=== PATIENT | female | born 1935 | race Caucasian/White ===

== ENCOUNTER → 2017-01-09 | Outpatient (REF) | payer MEDICARE, OTHER ==
[~2017-01-09] MED LIST: BUME0.5T PO; COUM1TAB14 PO; DRIS50002 PO; FURO20TA2 PO; LASI40TA PO; POTA20TA PO; TRAM50TA2 PO; XYZA5TAB2 PO
[2017-01-09 10:25] LABS: INR 2.47
== END ==
LOC: M LAB REF 09:31
PROVIDERS: ATTEND Family Medicine
DX: Z51.81 Encounter for therapeutic drug level monitoring (principal); Z79.01 Long term (current) use of anticoagulants

== ENCOUNTER → 2017-01-30 | Outpatient (REF) | payer MEDICARE, OTHER ==
[2017-01-30 13:46] LABS: INR 2.3
== END ==
LOC: M LAB REF 13:00
PROVIDERS: ATTEND Nurse Practitioner Family
DX: Z51.81 Encounter for therapeutic drug level monitoring (principal); Z79.01 Long term (current) use of anticoagulants; I10 Essential (primary) hypertension; R06.02 Shortness of breath; Z95.0 Presence of cardiac pacemaker

== ENCOUNTER → 2017-03-14 | Outpatient (RCR) | payer MEDICARE, OTHER | LOC: M PT 02-14 14:23 | PROVIDERS: ATTEND Surgery | DX: Z51.89 Encounter for other specified aftercare (principal); I89.0 Lymphedema, not elsewhere classified | CPT/HCPCS: 97110; 97140; 97162; G0283; G8978; G8979 ==

== ENCOUNTER 2017-03-20 13:49 | Outpatient (RCR) | payer MEDICARE, OTHER | END 2017-04-13 | LOC: M PT 13:49 | PROVIDERS: ATTEND Surgery | DX: Z51.89 Encounter for other specified aftercare (principal); I89.0 Lymphedema, not elsewhere classified ==

== ENCOUNTER 2017-09-20 13:30 | Outpatient (RCR) | payer MEDICARE, OTHER | END 2017-10-14 | LOC: M PT 13:30 | DX: Z51.89 Encounter for other specified aftercare (principal); I89.0 Lymphedema, not elsewhere classified | CPT/HCPCS: 97163 ==

== ENCOUNTER 2017-10-24 13:45 | Outpatient (RCR) | payer MEDICARE, OTHER | END 2017-11-14 | LOC: M PT 13:45 | DX: Z51.89 Encounter for other specified aftercare (principal); I89.0 Lymphedema, not elsewhere classified | CPT/HCPCS: 93005 ==

== ENCOUNTER → 2017-10-24 | Outpatient (CLI) | payer MEDICARE ==
[2017-10-24 16:20] LABS: INR 1.74; PROTHROMBIN TIME 20.9 SECONDS (12.4-14.5)
== END ==
LOC: M LAB 15:20
DX: I48.2 Chronic atrial fibrillation (principal); Z79.01 Long term (current) use of anticoagulants
CPT/HCPCS: 85610

== ENCOUNTER 2017-11-01 10:24 | Inpatient (IN) | payer MEDICARE, OTHER ==
[2017-11-01] MEDS: OMEPRAZOLE 20 MG CAP PO (09:00)
[2017-11-01 11:14] LABS: BASO # 0.1 10^3/uL (0.0-0.2); BASO % 1.2 % (0.0-1.0); EOS # 0.2 10^3/uL (0.0-0.50); EOS % 1.9 % (0.0-3.0); HEMATOCRIT 42.8 % (36.0-47.0); HEMOGLOBIN 13.5 g/dl (12.0-16.0); IMMATURE GRANULOCYTE % 0.4 % (0-0); LYMPH # 1.3 10^3/uL (1.5-4.5); LYMPH % 16.1 % (24.0-44.0); MEAN CORPUSCULAR HEMOGLOBIN 28.7 pg (27.0-33.0); MEAN CORPUSCULAR HGB CONC 31.5 g/dl (32.0-36.5); MEAN CORPUSCULAR VOLUME 90.9 fl (80.0-96.0); MONO # 0.5 10^3/uL (0.0-0.8); MONO % 6.5 % (0.0-5.0); NEUTROPHILS # 6.1 10^3/uL (1.8-7.7); NEUTROPHILS % 73.9 % (36.0-66.0); PLATELET COUNT, AUTOMATED 207 10^3/uL (150-450); RED BLOOD COUNT 4.71 10^6/uL (4.00-5.40); WHITE BLOOD COUNT 8.3 10^3/uL (4.0-10.0)
[2017-11-01 11:25] LABS: INR 1.24; PARTIAL THROMBOPLASTIN TIME 31.5 SECONDS (26.8-37.9); PROTHROMBIN TIME 15.8 SECONDS (12.4-14.5)
[2017-11-01 11:48] LABS: ALBUMIN 3.4 GM/DL (3.2-5.2); ALBUMIN/GLOBULIN RATIO 0.72 (1.00-1.93); ALKALINE PHOSPHATASE 92 U/L (45-117); ALT/SGPT 15 U/L (12-78); ANION GAP 6 MEQ/L (8-16); AST/SGOT 19 U/L (7-37); BILIRUBIN,DIRECT 0.4 MG/DL (0.0-0.2); BLOOD UREA NITROGEN 22 MG/DL (7-18); CARBON DIOXIDE LEVEL 27 MEQ/L (21-32); CHLORIDE LEVEL 109 MEQ/L (98-107); CPK CREATINE PHOSPHOKINASE 36 U/L (26-192); CREATININE FOR GFR 1.14 MG/DL (0.55-1.02); FREE T4 1.57 NG/DL (0.76-1.46); GLOMERULAR FILTRATION RATE 48.6 (>32); GLUCOSE, FASTING 120 MG/DL (83-110); POTASSIUM SERUM 4.4 MEQ/L (3.5-5.1); SODIUM LEVEL 142 MEQ/L (136-145); TOTAL PROTEIN 8.1 GM/DL (6.4-8.2); TROPONIN I < 0.02 NG/ML (< 0.10)
[2017-11-01 11:54] LABS: CK-MB VALUE MASS 1.6 NG/ML (0.0-3.6); MB/CK RELATIVE INDEX 4.44 (< OR =4)
[2017-11-01 13:41] LABS: BEDSIDE GLUCOSE 105 MG/DL (83-110)
[2017-11-01] MEDS: ENOXAPARIN 100MG/1ML SYRINGE (J1650) SC ×2 (14:30→18:17)
[2017-11-01] MEDS ORDERED: DEXTROSE 50% 50 ML SYRINGE IV (14:45)
[2017-11-01] MEDS ORDERED: GLUCAGON FOR INJ 1 MG VIAL (J1610) SC (14:45)
[2017-11-01] MEDS ORDERED: GLUCOSE 4 GM CHEW TABLET PO (14:45)
[2017-11-01] MEDS: IPRATROPIUM 0.5MG/ALBUTEROL 2.5MG INH SOL UD 3ML (DUONEB)(J7620) NEB (14:48)
[2017-11-01] MEDS: ALBUTEROL SULFATE 2.5 MG/0.5 ML INH NEB SOLN INH ×2 (14:48→22:29)
[2017-11-01 15:32] LABS: MAGNESIUM LEVEL 2.1 MG/DL (1.8-2.4)
[2017-11-01] MEDS ORDERED: ISOVUE-370 76% 100ML VIAL (Q9967) As Ordered (17:41)
[2017-11-01 18:13] LABS: BEDSIDE GLUCOSE 106 MG/DL (83-110)
[2017-11-01] MEDS: WARFARIN SOD 5 MG TAB PO (18:18)
[2017-11-01] MEDS: TORSEMIDE 20 MG TAB PO (18:18)
[2017-11-01] MEDS: HumaLOG INSULIN (NovoLOG) PER UNIT SC ×2 (18:19→21:00)
[2017-11-01 20:26] LABS: APPEARANCE, URINE CLEAR (CLEAR); BACTERIA, URINE AUTO 1+ (NEGATIVE); BILIRUBIN, URINE AUTO NEGATIVE (NEGATIVE); BLOOD, URINE BLOOD NEGATIVE (NEGATIVE); COLOR, URINE STRAW (YELLOW); GLUCOSE, URINE (UA) AUTO NEGATIVE (NEGATIVE); KETONE, URINE AUTO NEGATIVE (NEGATIVE); LEUKOCYTE ESTERASE, URINE AUTO TRACE (NEGATIVE); NITRITE, URINE AUTO NEGATIVE (NEGATIVE); PROTEIN, URINE AUTO NEGATIVE (NEGATIVE); RBC, URINE AUTO 1 /HPF (0-3); SPECIFIC GRAVITY URINE AUTO 1.004 (1.002-1.035); SQUAMOUS EPITHELIAL CELL UR AU 0 /HPF (0-6); UROBILINOGEN, URINE AUTO 0.2 mg/dL (0.0-2.0); WBC, URINE AUTO 9 /HPF (0-3)
[2017-11-01 20:27] LABS: BEDSIDE GLUCOSE 95 MG/DL (83-110)
[2017-11-01] MEDS: LEVEMIR (INSULIN DETEMIR) 1 UNITS/0.01ML SC (20:46)
[2017-11-01] MEDS: SENOKOT S TAB PO (20:46)
[2017-11-01] MEDS: CAPTOpril 12.5 MG TAB PO (21:01)
[2017-11-02] MEDS: ALBUTEROL SULFATE 2.5 MG/0.5 ML INH NEB SOLN INH (04:27)
[2017-11-02] MEDS: ENOXAPARIN 100MG/1ML SYRINGE (J1650) SC ×2 (05:55→16:52)
[2017-11-02] MEDS: LEVOTHYROXINE 25MCG TABLET (0.025MG) PO (05:55)
[2017-11-02 06:15] LABS: INR 1.42; PROTHROMBIN TIME 17.7 SECONDS (12.4-14.5)
[2017-11-02 06:19] LABS: ALBUMIN 2.7 GM/DL (3.2-5.2); ANION GAP 9 MEQ/L (8-16); BLOOD UREA NITROGEN 21 MG/DL (7-18); CALCIUM LEVEL 8.5 MG/DL (8.8-10.2); CARBON DIOXIDE LEVEL 26 MEQ/L (21-32); CHLORIDE LEVEL 108 MEQ/L (98-107); CREATININE FOR GFR 1.11 MG/DL (0.55-1.02); GLOMERULAR FILTRATION RATE 50.1 (>32); GLUCOSE, FASTING 111 MG/DL (83-110); PHOSPHORUS LEVEL 4.1 MG/DL (2.5-4.9); SODIUM LEVEL 143 MEQ/L (136-145); TROPONIN I 0.03 NG/ML (< 0.10)
[2017-11-02] MEDS: OMEPRAZOLE 20 MG CAP PO (08:46)
[2017-11-02] MEDS: LEVEMIR (INSULIN DETEMIR) 1 UNITS/0.01ML SC ×2 (08:46→21:52)
[2017-11-02] MEDS: SENOKOT S TAB PO ×2 (08:46→21:52)
[2017-11-02] MEDS: CAPTOpril 12.5 MG TAB PO ×2 (08:46→21:52)
[2017-11-02] MEDS: TORSEMIDE 20 MG TAB PO ×2 (08:46→16:52)
[2017-11-02] MEDS: HumaLOG INSULIN (NovoLOG) PER UNIT SC ×4 (08:47→21:00)
[2017-11-02 12:14] LABS: BEDSIDE GLUCOSE 161 MG/DL (83-110)
[2017-11-02 16:50] LABS: BEDSIDE GLUCOSE 130 MG/DL (83-110)
[2017-11-02] MEDS: SPIRONOLACTONE 25 MG TAB PO (16:52)
[2017-11-02] MEDS: WARFARIN SOD 3 MG TAB PO (16:52)
[2017-11-02 22:01] LABS: BEDSIDE GLUCOSE 111 MG/DL (83-110)
[2017-11-03] MEDS: ENOXAPARIN 100MG/1ML SYRINGE (J1650) SC (05:41)
[2017-11-03] MEDS: LEVOTHYROXINE 25MCG TABLET (0.025MG) PO (05:41)
[2017-11-03 06:35] LABS: INR 1.78; PROTHROMBIN TIME 21.3 SECONDS (12.4-14.5)
[2017-11-03 06:38] LABS: ALBUMIN 2.6 GM/DL (3.2-5.2); ANION GAP 8 MEQ/L (8-16); BLOOD UREA NITROGEN 20 MG/DL (7-18); CALCIUM LEVEL 8.2 MG/DL (8.8-10.2); CARBON DIOXIDE LEVEL 32 MEQ/L (21-32); CHLORIDE LEVEL 104 MEQ/L (98-107); CREATININE FOR GFR 1.19 MG/DL (0.55-1.02); GLOMERULAR FILTRATION RATE 46.2 (>32); GLUCOSE, FASTING 101 MG/DL (83-110); PHOSPHORUS LEVEL 3.4 MG/DL (2.5-4.9); POTASSIUM SERUM 3.2 MEQ/L (3.5-5.1); SODIUM LEVEL 144 MEQ/L (136-145)
[2017-11-03] MEDS: HumaLOG INSULIN (NovoLOG) PER UNIT SC ×4 (07:30→20:25)
[2017-11-03] MEDS: TORSEMIDE 20 MG TAB PO (07:52)
[2017-11-03] MEDS: LEVEMIR (INSULIN DETEMIR) 1 UNITS/0.01ML SC ×2 (07:53→20:27)
[2017-11-03] MEDS: OMEPRAZOLE 20 MG CAP PO (07:53)
[2017-11-03] MEDS: SPIRONOLACTONE 25 MG TAB PO (07:53)
[2017-11-03] MEDS: CAPTOpril 12.5 MG TAB PO (07:53)
[2017-11-03] MEDS: SENOKOT S TAB PO ×2 (07:53→20:24)
[2017-11-03] MEDS: NYSTATIN 100,000 UNITS/GM TOPICAL PWD 15 GM TOP ×2 (09:00→20:24)
[2017-11-03 12:22] LABS: BEDSIDE GLUCOSE 133 MG/DL (83-110)
[2017-11-03] MEDS: POTASSIUM CHLORIDE 10 MEQ SR TABLET PO ×2 (14:19→20:23)
[2017-11-03 17:17] LABS: BEDSIDE GLUCOSE 119 MG/DL (83-110)
[2017-11-03] MEDS: WARFARIN SOD 5 MG TAB PO (17:25)
[2017-11-03] MEDS: ACETAMINOPHEN TAB 650MG DOSE (2X325MG) PO (17:25)
[2017-11-03 20:01] LABS: BEDSIDE GLUCOSE 122 MG/DL (83-110)
[2017-11-04] MEDS: ALBUTEROL SULFATE 2.5 MG/0.5 ML INH NEB SOLN INH (04:35)
[2017-11-04 04:54] LABS: INR 1.89; PROTHROMBIN TIME 22.3 SECONDS (12.4-14.5)
[2017-11-04 04:59] LABS: ALBUMIN 2.6 GM/DL (3.2-5.2); ANION GAP 7 MEQ/L (8-16); BLOOD UREA NITROGEN 22 MG/DL (7-18); CALCIUM LEVEL 8.1 MG/DL (8.8-10.2); CARBON DIOXIDE LEVEL 33 MEQ/L (21-32); CHLORIDE LEVEL 103 MEQ/L (98-107); CREATININE FOR GFR 1.15 MG/DL (0.55-1.02); GLOMERULAR FILTRATION RATE 48.1 (>32); GLUCOSE, FASTING 103 MG/DL (83-110); PHOSPHORUS LEVEL 3.3 MG/DL (2.5-4.9); POTASSIUM SERUM 3.6 MEQ/L (3.5-5.1); SODIUM LEVEL 143 MEQ/L (136-145)
[2017-11-04] MEDS: LEVOTHYROXINE 25MCG TABLET (0.025MG) PO (06:11)
[2017-11-04] MEDS: HumaLOG INSULIN (NovoLOG) PER UNIT SC ×4 (07:30→20:59)
[2017-11-04] MEDS: POTASSIUM CHLORIDE 10 MEQ SR TABLET PO ×2 (08:14→20:59)
[2017-11-04] MEDS: OMEPRAZOLE 20 MG CAP PO (08:14)
[2017-11-04] MEDS: SPIRONOLACTONE 25 MG TAB PO (08:14)
[2017-11-04] MEDS: SENOKOT S TAB PO ×2 (08:14→20:59)
[2017-11-04] MEDS: LEVEMIR (INSULIN DETEMIR) 1 UNITS/0.01ML SC ×2 (08:15→20:58)
[2017-11-04] MEDS: NYSTATIN 100,000 UNITS/GM TOPICAL PWD 15 GM TOP ×2 (08:15→20:59)
[2017-11-04] MEDS ORDERED: TORSEMIDE 20 MG TAB PO (09:00)
[2017-11-04 12:31] LABS: BEDSIDE GLUCOSE 150 MG/DL (83-110)
[2017-11-04] MEDS: TORSEMIDE 20 MG TAB PO (12:50)
[2017-11-04 16:42] LABS: BEDSIDE GLUCOSE 153 MG/DL (83-110)
[2017-11-04] MEDS: WARFARIN SOD 5 MG TAB PO (18:31)
[2017-11-04 21:15] LABS: BEDSIDE GLUCOSE 128 MG/DL (83-110)
[2017-11-05] MEDS: ALBUTEROL SULFATE 2.5 MG/0.5 ML INH NEB SOLN INH ×2 (03:45→21:01)
[2017-11-05 05:54] LABS: ALBUMIN 2.6 GM/DL (3.2-5.2); ANION GAP 7 MEQ/L (8-16); BLOOD UREA NITROGEN 22 MG/DL (7-18); CARBON DIOXIDE LEVEL 30 MEQ/L (21-32); CHLORIDE LEVEL 104 MEQ/L (98-107); CREATININE FOR GFR 1.26 MG/DL (0.55-1.02); GLOMERULAR FILTRATION RATE 43.3 (>32); GLUCOSE, FASTING 121 MG/DL (83-110); INR 2.32; PHOSPHORUS LEVEL 3.4 MG/DL (2.5-4.9); POTASSIUM SERUM 4.3 MEQ/L (3.5-5.1); PROTHROMBIN TIME 26.4 SECONDS (12.4-14.5); SODIUM LEVEL 141 MEQ/L (136-145)
[2017-11-05] MEDS: LEVOTHYROXINE 25MCG TABLET (0.025MG) PO (06:07)
[2017-11-05] MEDS: HumaLOG INSULIN (NovoLOG) PER UNIT SC ×4 (09:22→21:00)
[2017-11-05] MEDS: SENOKOT S TAB PO ×2 (09:22→21:00)
[2017-11-05] MEDS: LEVEMIR (INSULIN DETEMIR) 1 UNITS/0.01ML SC ×2 (09:22→22:15)
[2017-11-05] MEDS: TORSEMIDE 20 MG TAB PO (09:23)
[2017-11-05] MEDS: OMEPRAZOLE 20 MG CAP PO (09:23)
[2017-11-05] MEDS: SPIRONOLACTONE 25 MG TAB PO (09:23)
[2017-11-05] MEDS: POTASSIUM CHLORIDE 10 MEQ SR TABLET PO (09:23)
[2017-11-05] MEDS: NYSTATIN 100,000 UNITS/GM TOPICAL PWD 15 GM TOP ×2 (09:24→21:00)
[2017-11-05 12:13] LABS: BEDSIDE GLUCOSE 127 MG/DL (83-110)
[2017-11-05] MEDS: WARFARIN SOD 5 MG TAB PO (16:44)
[2017-11-05 17:20] LABS: BEDSIDE GLUCOSE 177 MG/DL (83-110)
[2017-11-05 22:14] LABS: BEDSIDE GLUCOSE 114 MG/DL (83-110)
[2017-11-05] MEDS: ACETAMINOPHEN TAB 650MG DOSE (2X325MG) PO (22:16)
[2017-11-06 06:05] LABS: PROTHROMBIN TIME 27.1 SECONDS (12.4-14.5)
[2017-11-06] MEDS: LEVOTHYROXINE 25MCG TABLET (0.025MG) PO (06:14)
[2017-11-06 06:20] LABS: ALBUMIN 2.5 GM/DL (3.2-5.2); ANION GAP 9 MEQ/L (8-16); BLOOD UREA NITROGEN 23 MG/DL (7-18); CALCIUM LEVEL 8.4 MG/DL (8.8-10.2); CARBON DIOXIDE LEVEL 30 MEQ/L (21-32); CHLORIDE LEVEL 102 MEQ/L (98-107); CREATININE FOR GFR 1.12 MG/DL (0.55-1.02); GLOMERULAR FILTRATION RATE 49.6 (>32); GLUCOSE, FASTING 102 MG/DL (70-100); PHOSPHORUS LEVEL 3.8 MG/DL (2.5-4.9); SODIUM LEVEL 141 MEQ/L (136-145)
[2017-11-06] MEDS: HumaLOG INSULIN (NovoLOG) PER UNIT SC ×4 (08:46→20:30)
[2017-11-06] MEDS: LEVEMIR (INSULIN DETEMIR) 1 UNITS/0.01ML SC ×2 (08:46→20:24)
[2017-11-06] MEDS: SPIRONOLACTONE 25 MG TAB PO (08:47)
[2017-11-06] MEDS: SENOKOT S TAB PO ×2 (08:47→20:24)
[2017-11-06] MEDS: TORSEMIDE 20 MG TAB PO (08:47)
[2017-11-06] MEDS: OMEPRAZOLE 20 MG CAP PO (08:47)
[2017-11-06] MEDS: NYSTATIN 100,000 UNITS/GM TOPICAL PWD 15 GM TOP ×2 (08:48→20:25)
[2017-11-06 13:23] LABS: BEDSIDE GLUCOSE 134 MG/DL (83-110)
[2017-11-06 17:03] LABS: BEDSIDE GLUCOSE 166 MG/DL (83-110)
[2017-11-06] MEDS: WARFARIN SOD 5 MG TAB PO (17:39)
[2017-11-06 20:47] LABS: BEDSIDE GLUCOSE 113 MG/DL (83-110)
[2017-11-07] MEDS: LEVOTHYROXINE 25MCG TABLET (0.025MG) PO (05:09)
[2017-11-07 05:46] LABS: INR 2.65; PROTHROMBIN TIME 29.4 SECONDS (12.4-14.5)
[2017-11-07 06:00] LABS: ALBUMIN 2.5 GM/DL (3.2-5.2); ANION GAP 7 MEQ/L (8-16); BLOOD UREA NITROGEN 24 MG/DL (7-18); CALCIUM LEVEL 8.2 MG/DL (8.8-10.2); CARBON DIOXIDE LEVEL 32 MEQ/L (21-32); CHLORIDE LEVEL 102 MEQ/L (98-107); CREATININE FOR GFR 1.18 MG/DL (0.55-1.02); GLOMERULAR FILTRATION RATE 46.7 (>32); GLUCOSE, FASTING 126 MG/DL (70-100); PHOSPHORUS LEVEL 3.8 MG/DL (2.5-4.9); SODIUM LEVEL 141 MEQ/L (136-145)
[2017-11-07] MEDS: ACETAMINOPHEN TAB 650MG DOSE (2X325MG) PO ×2 (07:44→17:10)
[2017-11-07] MEDS: SENOKOT S TAB PO ×2 (09:27→20:48)
[2017-11-07] MEDS: SPIRONOLACTONE 25 MG TAB PO (09:27)
[2017-11-07] MEDS: TORSEMIDE 20 MG TAB PO (09:27)
[2017-11-07] MEDS: LEVEMIR (INSULIN DETEMIR) 1 UNITS/0.01ML SC ×2 (09:28→20:48)
[2017-11-07] MEDS: OMEPRAZOLE 20 MG CAP PO (09:28)
[2017-11-07] MEDS: HumaLOG INSULIN (NovoLOG) PER UNIT SC ×4 (09:29→20:43)
[2017-11-07] MEDS: NYSTATIN 100,000 UNITS/GM TOPICAL PWD 15 GM TOP ×2 (09:30→20:48)
[2017-11-07 12:01] LABS: BEDSIDE GLUCOSE 158 MG/DL (83-110)
[2017-11-07] MEDS: EUCERIN 120GM CREAM TOP ×2 (12:30→20:48)
[2017-11-07] MEDS: WARFARIN SOD 5 MG TAB PO (17:09)
[2017-11-07 17:19] LABS: BEDSIDE GLUCOSE 131 MG/DL (83-110)
[2017-11-07 22:05] LABS: BEDSIDE GLUCOSE 142 MG/DL (83-110)
[2017-11-08] MEDS: ACETAMINOPHEN TAB 650MG DOSE (2X325MG) PO ×2 (01:56→08:02)
[2017-11-08] MEDS: LEVOTHYROXINE 25MCG TABLET (0.025MG) PO (05:02)
[2017-11-08 06:27] LABS: INR 2.64; PROTHROMBIN TIME 29.3 SECONDS (12.4-14.5)
[2017-11-08 06:41] LABS: ALBUMIN 2.6 GM/DL (3.2-5.2); ANION GAP 7 MEQ/L (8-16); BLOOD UREA NITROGEN 29 MG/DL (7-18); CALCIUM LEVEL 7.9 MG/DL (8.8-10.2); CARBON DIOXIDE LEVEL 30 MEQ/L (21-32); CHLORIDE LEVEL 105 MEQ/L (98-107); CREATININE FOR GFR 1.15 MG/DL (0.55-1.02); GLOMERULAR FILTRATION RATE 48.1 (>32); GLUCOSE, FASTING 108 MG/DL (70-100); PHOSPHORUS LEVEL 3.2 MG/DL (2.5-4.9); POTASSIUM SERUM 3.9 MEQ/L (3.5-5.1); SODIUM LEVEL 142 MEQ/L (136-145)
[2017-11-08] MEDS: OMEPRAZOLE 20 MG CAP PO (08:00)
[2017-11-08] MEDS: SPIRONOLACTONE 25 MG TAB PO (08:00)
[2017-11-08] MEDS: TORSEMIDE 20 MG TAB PO (08:01)
[2017-11-08] MEDS: SENOKOT S TAB PO ×2 (08:01→21:00)
[2017-11-08] MEDS: NYSTATIN 100,000 UNITS/GM TOPICAL PWD 15 GM TOP ×2 (08:01→21:01)
[2017-11-08] MEDS: EUCERIN 120GM CREAM TOP ×2 (08:01→21:01)
[2017-11-08] MEDS: LEVEMIR (INSULIN DETEMIR) 1 UNITS/0.01ML SC ×2 (08:02→21:00)
[2017-11-08] MEDS: HumaLOG INSULIN (NovoLOG) PER UNIT SC ×4 (08:02→21:01)
[2017-11-08 12:28] LABS: BEDSIDE GLUCOSE 159 MG/DL (83-110)
[2017-11-08] MEDS: WARFARIN SOD 5 MG TAB PO (17:52)
[2017-11-08 21:00] LABS: BEDSIDE GLUCOSE 172 MG/DL (83-110)
[2017-11-09] MEDS: ACETAMINOPHEN TAB 650MG DOSE (2X325MG) PO (00:25)
[2017-11-09] MEDS: LEVOTHYROXINE 25MCG TABLET (0.025MG) PO (05:35)
[2017-11-09 06:51] LABS: BEDSIDE GLUCOSE 101 MG/DL (83-110)
[2017-11-09] MEDS: HumaLOG INSULIN (NovoLOG) PER UNIT SC (07:28)
[2017-11-09] MEDS: SENOKOT S TAB PO ×2 (09:00→09:07)
[2017-11-09] MEDS: OMEPRAZOLE 20 MG CAP PO (09:08)
[2017-11-09] MEDS: TORSEMIDE 20 MG TAB PO (09:08)
[2017-11-09] MEDS: LEVEMIR (INSULIN DETEMIR) 1 UNITS/0.01ML SC (09:08)
[2017-11-09] MEDS: SPIRONOLACTONE 25 MG TAB PO (09:08)
[2017-11-09] MEDS: NYSTATIN 100,000 UNITS/GM TOPICAL PWD 15 GM TOP (09:08)
[2017-11-09] MEDS: EUCERIN 120GM CREAM TOP (09:09)
[2017-11-09 12:01] LABS: BEDSIDE GLUCOSE 175 MG/DL (83-110)
[2017-11-09 15:12] LABS: BEDSIDE GLUCOSE 112 MG/DL (83-110)
== END 2017-11-09 12:44 | DRG 314 ==
LOC: M ED 10:24 → M PCU 18:48
PROVIDERS: Internal Medicine Cardiovascular Disease
DX: T82.198A Other mechanical complication of other cardiac electronic device, initial encounter (principal); I46.8 Cardiac arrest due to other underlying condition; I50.33 Acute on chronic diastolic (congestive) heart failure; I44.2 Atrioventricular block, complete; Z68.41 Body mass index [BMI] 40.0-44.9, adult; E66.01 Morbid (severe) obesity due to excess calories; G47.33 Obstructive sleep apnea (adult) (pediatric); I11.0 Hypertensive heart disease with heart failure; I27.81 Cor pulmonale (chronic); Z95.2 Presence of prosthetic heart valve; I48.2 Chronic atrial fibrillation; I27.20 Pulmonary hypertension, unspecified; I35.0 Nonrheumatic aortic (valve) stenosis; Z91.19 Patient's noncompliance with other medical treatment and regimen; E11.40 Type 2 diabetes mellitus with diabetic neuropathy, unspecified; Z79.4 Long term (current) use of insulin; E78.00 Pure hypercholesterolemia, unspecified; I73.9 Peripheral vascular disease, unspecified; K44.9 Diaphragmatic hernia without obstruction or gangrene; K21.9 Gastro-esophageal reflux disease without esophagitis; Z86.711 Personal history of pulmonary embolism; Z86.718 Personal history of other venous thrombosis and embolism; M19.90 Unspecified osteoarthritis, unspecified site; E03.9 Hypothyroidism, unspecified; Z79.01 Long term (current) use of anticoagulants; Z88.0 Allergy status to penicillin; Z88.2 Allergy status to sulfonamides; Z88.8 Allergy status to other drugs, medicaments and biological substances; Z91.11 Patient's noncompliance with dietary regimen; Y83.1 Surgical operation with implant of artificial internal device as the cause of abnormal reaction of the patient, or of later complication, without mention of misadventure at the time of the procedure

== ENCOUNTER → 2017-11-13 | Outpatient (REF) | payer MEDICARE ==
[2017-11-13 12:22] LABS: HEMATOCRIT 41.3 % (36.0-47.0); HEMOGLOBIN 13.1 g/dl (12.0-16.0); MEAN CORPUSCULAR HEMOGLOBIN 27.9 pg (27.0-33.0); MEAN CORPUSCULAR HGB CONC 31.7 g/dl (32.0-36.5); MEAN CORPUSCULAR VOLUME 87.9 fl (80.0-96.0); PLATELET COUNT, AUTOMATED 192 10^3/uL (150-450); RED CELL DISTRIBUTION WIDTH 15.1 % (11.5-14.5); WHITE BLOOD COUNT 5.8 10^3/uL (4.0-10.0)
[2017-11-13 13:05] LABS: ESTIMATED AVERAGE GLUCOSE 140 MG/DL (60-110); HEMOGLOBIN A1c 6.5 %
[2017-11-13 13:19] LABS: ALBUMIN 2.9 GM/DL (3.2-5.2); ALBUMIN/GLOBULIN RATIO 0.71 (1.00-1.93); ALKALINE PHOSPHATASE 96 U/L (45-117); ALT/SGPT 19 U/L (12-78); ANION GAP 8 MEQ/L (8-16); AST/SGOT 29 U/L (7-37); BILIRUBIN,TOTAL 0.6 MG/DL (0.2-1.0); BLOOD UREA NITROGEN 29 MG/DL (7-18); CALCIUM LEVEL 8.1 MG/DL (8.8-10.2); CARBON DIOXIDE LEVEL 31 MEQ/L (21-32); CHLORIDE LEVEL 101 MEQ/L (98-107); CREATININE FOR GFR 1.31 MG/DL (0.55-1.30); GLOMERULAR FILTRATION RATE 41.4 (>32); GLUCOSE, FASTING 171 MG/DL (70-100); POTASSIUM SERUM 3.7 MEQ/L (3.5-5.1); SODIUM LEVEL 140 MEQ/L (136-145)
== END ==
DX: I50.9 Heart failure, unspecified (principal); Z79.899 Other long term (current) drug therapy
CPT/HCPCS: 80053

== ENCOUNTER → 2017-11-20 | Outpatient (REF) ==
[2017-11-20 11:03] LABS: HEMATOCRIT 40.5 % (36.0-47.0); MEAN CORPUSCULAR HGB CONC 32.1 g/dl (32.0-36.5); MEAN CORPUSCULAR VOLUME 87.3 fl (80.0-96.0); PLATELET COUNT, AUTOMATED 191 10^3/uL (150-450); RED BLOOD COUNT 4.64 10^6/uL (4.00-5.40); RED CELL DISTRIBUTION WIDTH 15.3 % (11.5-14.5); WHITE BLOOD COUNT 7.5 10^3/uL (4.0-10.0)
[2017-11-20 11:33] LABS: ALBUMIN/GLOBULIN RATIO 0.71 (1.00-1.93); ALKALINE PHOSPHATASE 102 U/L (45-117); ALT/SGPT 25 U/L (12-78); ANION GAP 12 MEQ/L (8-16); AST/SGOT 32 U/L (7-37); BILIRUBIN,TOTAL 0.8 MG/DL (0.2-1.0); BLOOD UREA NITROGEN 25 MG/DL (7-18); CALCIUM LEVEL 8.6 MG/DL (8.8-10.2); CARBON DIOXIDE LEVEL 26 MEQ/L (21-32); CHLORIDE LEVEL 103 MEQ/L (98-107); CREATININE FOR GFR 1.24 MG/DL (0.55-1.30); GLOMERULAR FILTRATION RATE 44.1 (>32); GLUCOSE, FASTING 125 MG/DL (70-100); NT-PRO BNP 1349 PG/ML (<450); POTASSIUM SERUM 3.8 MEQ/L (3.5-5.1); SODIUM LEVEL 141 MEQ/L (136-145); TOTAL PROTEIN 7.2 GM/DL (6.4-8.2)
== END ==
DX: I50.9 Heart failure, unspecified (principal)

== ENCOUNTER → 2017-11-27 | Outpatient (REF) ==
[2017-11-27 11:58] LABS: ANION GAP 8 MEQ/L (8-16); BLOOD UREA NITROGEN 29 MG/DL (7-18); CARBON DIOXIDE LEVEL 30 MEQ/L (21-32); CHLORIDE LEVEL 106 MEQ/L (98-107); CREATININE FOR GFR 1.34 MG/DL (0.55-1.30); GLOMERULAR FILTRATION RATE 40.3 (>32); GLUCOSE, FASTING 164 MG/DL (70-100); POTASSIUM SERUM 3.8 MEQ/L (3.5-5.1); SODIUM LEVEL 144 MEQ/L (136-145)
== END ==
DX: I50.9 Heart failure, unspecified (principal)

== ENCOUNTER 2018-02-09 22:17 | Emergency (ER) | payer MEDICARE ==
[2018-02-09] MEDS: NITROGLYCERIN 0.4 MG SUBL TABLET SL ×2 (22:50→23:38)
[2018-02-09 23:18] LABS: BASO % 0.3 % (0.0-1.0); EOS # 0.1 10^3/uL (0.0-0.50); EOS % 0.9 % (0.0-3.0); HEMATOCRIT 45.6 % (36.0-47.0); HEMOGLOBIN 14.4 g/dl (12.0-15.5); IMMATURE GRANULOCYTE % 0.5 % (0-3.0); LYMPH # 0.9 10^3/uL (1.5-4.5); LYMPH % 7.4 % (24.0-44.0); MEAN CORPUSCULAR HEMOGLOBIN 28.5 pg (27.0-33.0); MEAN CORPUSCULAR HGB CONC 31.6 g/dl (32.0-36.5); MEAN CORPUSCULAR VOLUME 90.3 fl (80.0-96.0); MONO # 0.5 10^3/uL (0.0-0.8); MONO % 4.3 % (0.0-5.0); NEUTROPHILS % 86.6 % (36.0-66.0); PLATELET COUNT, AUTOMATED 227 10^3/uL (150-450); RED BLOOD COUNT 5.05 10^6/uL (4.00-5.40); RED CELL DISTRIBUTION WIDTH 14.4 % (11.5-14.5); WHITE BLOOD COUNT 11.6 10^3/uL (4.0-10.0)
[2018-02-09] MEDS: ONDANSETRON 4MG/2ML VIAL (J2405) IV (23:30)
[2018-02-09] MEDS: ASPIRIN 81 MG CHEW TABLET PO (23:31)
[2018-02-09] MEDS: NS 1,000 ML IV (23:35)
[2018-02-10] MEDS: NITROGLYCERIN 0.4 MG SUBL TABLET SL
[2018-02-10 00:11] LABS: ALBUMIN 2.9 GM/DL (3.2-5.2); ALBUMIN/GLOBULIN RATIO 0.69 (1.00-1.93); ALKALINE PHOSPHATASE 97 U/L (45-117); ALT/SGPT 17 U/L (12-78); ANION GAP 6 MEQ/L (8-16); AST/SGOT 29 U/L (7-37); BILIRUBIN,DIRECT 0.2 MG/DL (0.0-0.2); BILIRUBIN,TOTAL 0.6 MG/DL (0.2-1.0); BLOOD UREA NITROGEN 19 MG/DL (7-18); CALCIUM LEVEL 8.1 MG/DL (8.8-10.2); CARBON DIOXIDE LEVEL 32 MEQ/L (21-32); CHLORIDE LEVEL 105 MEQ/L (98-107); CK-MB VALUE MASS 1.7 NG/ML (<3.6); CPK CREATINE PHOSPHOKINASE 57 U/L (26-192); GLOMERULAR FILTRATION RATE 56.4 (>32); GLUCOSE, FASTING 142 MG/DL (70-100); MB/CK RELATIVE INDEX 2.98 (< OR =4); SODIUM LEVEL 143 MEQ/L (136-145); TOTAL PROTEIN 7.1 GM/DL (6.4-8.2); TROPONIN I < 0.02 NG/ML (< 0.10)
[2018-02-10] MEDS: METOCLOPRAMIDE INJ 10MG/2ML VIAL (J2765) IV (00:52)
[2018-02-10 01:04] LABS: PROTHROMBIN TIME 23.3 SECONDS (12.4-14.5)
[2018-02-10 01:05] LABS: INR 1.99
[2018-02-10] MEDS: ACETAMINOPHEN TAB 650MG DOSE (2X325MG) PO (02:21)
[2018-02-10 05:38] LABS: CK-MB VALUE MASS 1.6 NG/ML (<3.6); CPK CREATINE PHOSPHOKINASE 59 U/L (26-192); MB/CK RELATIVE INDEX 2.71 (< OR =4); TROPONIN I < 0.02 NG/ML (< 0.10)
== END 2018-02-10 07:14 | disposition home or self-care (01) ==
LOC: M ED 02-10 07:14
DX: R07.9 Chest pain, unspecified (principal); E11.9 Type 2 diabetes mellitus without complications; I10 Essential (primary) hypertension; E78.5 Hyperlipidemia, unspecified; Z88.1 Allergy status to other antibiotic agents; Z88.0 Allergy status to penicillin; Z88.2 Allergy status to sulfonamides; Z79.899 Other long term (current) drug therapy; Z79.890 Hormone replacement therapy; Z79.4 Long term (current) use of insulin
CPT/HCPCS: J2405

== ENCOUNTER 2019-01-05 10:40 | Inpatient (IN) | payer MEDICARE ==
[~2019-01-05] VITALS: Ht 162.6 cm; Wt 112.7 kg
[2019-01-05] MEDS: TORSEMIDE 20 MG TAB PO SCH (09:00)
[~2019-01-05 10:40] MED LIST changes: +ALBU83IN INH; +ALDA25TA2 PO; -BUME0.5T PO; +BUME0.5T2 PO; +COUM1TAB17 PO; +COUM6TAB PO; +DEMA20TA6 PO; -DRIS50002 PO; +DRIS50003 PO; +EUCE12CR TOP; +KLOR20TA42 PO; -LASI40TA PO; +LASI40TA9 PO; +LASI80TA3 PO; +LEVE1INJ5 SC; +NYAM10003 TOP; +OMEP20CA3 PO; -POTA20TA PO; +SENN1TAB2 PO; +SYNT25TA PO
[2019-01-05 11:22] LABS: BASO # 0.1 10^3/uL (0.0-0.2); BASO % 0.5 % (0.0-1.0); EOS # 0.1 10^3/uL (0.0-0.50); EOS % 0.9 % (0.0-3.0); HEMATOCRIT 41.4 % (36.0-47.0); HEMOGLOBIN 13.1 g/dl (12.0-15.5); LYMPH % 8.6 % (24.0-44.0); MEAN CORPUSCULAR HEMOGLOBIN 28.8 pg (27.0-33.0); MEAN CORPUSCULAR HGB CONC 31.6 g/dl (32.0-36.5); MONO # 0.6 10^3/uL (0.0-0.8); MONO % 5.4 % (0.0-5.0); NEUTROPHILS # 9.3 10^3/uL (1.8-7.7); PLATELET COUNT, AUTOMATED 210 10^3/uL (150-450); RED BLOOD COUNT 4.55 10^6/uL (4.00-5.40); WHITE BLOOD COUNT 11.1 10^3/uL (4.0-10.0)
[2019-01-05] MEDS ORDERED: ASPIRIN 81 MG CHEW TABLET PO ONE (11:30)
[2019-01-05] MEDS ORDERED: NITROGLYCERIN 0.4 MG SUBL TABLET SL PRN (11:30)
[2019-01-05 11:34] LABS: INR 1.39; PROTHROMBIN TIME 17.3 SECONDS (12.1-14.4)
[2019-01-05 11:35] LABS: PARTIAL THROMBOPLASTIN TIME 37.6 SECONDS (25.4-37.6)
[2019-01-05 11:56] LABS: ALBUMIN 2.9 GM/DL (3.2-5.2); BILIRUBIN,DIRECT 0.3 MG/DL (0.0-0.2); CALCIUM LEVEL 8.1 MG/DL (8.8-10.2); CREATININE FOR GFR 1.18 MG/DL (0.55-1.30); FREE T4 1.62 NG/DL (0.76-1.46); GLOMERULAR FILTRATION RATE 46.6 (>32); MB/CK RELATIVE INDEX 5.22 (< OR =4); POTASSIUM SERUM 3.8 MEQ/L (3.5-5.1); THYROID STIMULATING HORMONE 4.78 uIU/ML (0.358-3.740); TOTAL PROTEIN 7.7 GM/DL (6.4-8.2); TROPONIN I 0.03 NG/ML (< 0.10)
[2019-01-05 12:51] LABS: C REACTIVE PROTEIN QUANTITATIV 7.55 MG/DL (0.00-0.30)
--- NOTE | 2019-01-05 12:58 | REP ---
Bilateral lower extremity Duplex Doppler venous ultrasound: Real time compression and duplex Doppler interrogation of the bilateral lower extremity deep venous system is performed. Bilaterally, the common femoral, superficial femoral and popliteal veins are fully compressible with transducer pressure and demonstrate normal spontaneous and phasic flow, without evidence of deep venous thrombosis. Impression: No evidence of deep venous thrombosis of the bilateral lower extremity femoral popliteal venous system. Electronically Signed by Neri Perez MD 01/05/2019 12:50 P
[2019-01-05 13:07] LABS: ERYTHROCYTE SEDIMENTATION RATE 25 mm/hr (0-30)
[2019-01-05] MEDS ORDERED: ISOVUE-370 76% 125ML VIAL (Q9967 PER ML) As Ordered ONE (13:18)
--- NOTE | 2019-01-05 13:37 | REP ---
CHEST, TWO VIEWS: Two views of the chest are performed and compared to several prior studies most recently 02/09/2018. There is cardiomegaly. There is no evidence of acute infiltrate. Mediastinal silhouette is unchanged. Left pacemaker is again noted as well as a prosthetic heart valve. Metallic clips are seen overlying the right mid-lung zone. There are degenerative changes of the spine. IMPRESSION: Cardiomegaly. No acute infiltrate. Electronically Signed by Neri Perez MD 01/05/2019 06:14 P
--- NOTE | 2019-01-05 14:24 | REP ---
CT ANGIOGRAM CHEST: TECHNIQUE: Axial contrast enhanced images from the thoracic inlet to the upper abdomen using 100 mL Isovue 370 intravenous contrast material with multiplanar reformations. There is no CT evidence of pulmonary embolism. There is no thoracic aortic aneurysm or dissection. There is mild cardiomegaly. There is no mediastinal, hilar, or chest wall lymphadenopathy. There is no pleural or pericardial effusion. There are atherosclerotic calcifications of the thoracic aorta. I see no evidence of infiltrate in either lung. There are degenerative changes of the spine. Multiple calcified granulomas are seen in the spleen and there is a single calcified granuloma visualized in the right lobe of the liver. There is a cyst in the upper pole of the right kidney which measures approximately 2.3 cm in diameter. IMPRESSION: No CT evidence of pulmonary embolism. No acute findings identified. Electronically Signed by Neri Perez MD 01/05/2019 06:16 P
[2019-01-05] MEDS ORDERED: ceFAZolin SOD 1 GM in D5W MINI-BAG PLUS 50 ML IV ONE (14:30)
[2019-01-05] MEDS ORDERED: TORS20TA2 PO (14:55)
[2019-01-05] MEDS ORDERED: SENN1TAB2 PO (14:55)
[2019-01-05] MEDS ORDERED: WARF-23 PO (14:55)
[2019-01-05] MEDS ORDERED: ACET500T15 PO (14:55)
[2019-01-05] MEDS ORDERED: POTA1TAB23 PO (14:55)
[2019-01-05] MEDS ORDERED: ACETAMINOPHEN 325 MG TAB PO ONE (15:30)
[2019-01-05] MEDS ORDERED: GLUCOSE 4 GM CHEW TABLET PO PRN (17:00)
[2019-01-05] MEDS ORDERED: DEXTROSE 50% 50 ML SYRINGE IV PRN (17:00)
[2019-01-05] MEDS ORDERED: GLUCAGON FOR INJ 1 MG VIAL (J1610) SC PRN (17:00)
[2019-01-05] MEDS: OMEPRAZOLE 20 MG CAP PO SCH (18:10)
[2019-01-05] MEDS: HumaLOG INSULIN (NovoLOG) PER UNIT SC SCH ×2 (18:11→21:00)
--- NOTE | 2019-01-05 18:11 | HPE ---
DATE OF ADMISSION: 01/05/2019 CHIEF COMPLAINT: Lower extremity wounds worsening with redness and drainage, chest pain. HISTORY OF PRESENT ILLNESS: This is an 83-year-old female with past medical history of diabetes, hypertension, hyperlipidemia, morbid obesity, peripheral vascular disease, chronic venous insufficiency with prior deep venous thromboses (DVTs) and pulmonary embolus (PE), obstructive sleep apnea, noncompliant with continuous positive airway pressure (CPAP), prior history of complete heart block with dual chamber pacemaker placement in 2016, who presents with chief complaint of intermittent chest pain as well as worsening of her lower extremity lymphedema which has started to become more red with drainage. Patient reports that over the last few days her lower extremity wounds, which she receives wound care for with Dr. Fontana, have started to look worse. They are much more angry-looking with more redness and serous drainage. She denies any fevers. She also reports intermittent chest pain. She is quite a poor historian when it comes to qualifying this chest pain. She reports that it is intermittent both with rest and exertion and at one point today it was constant. Right now she is not having any chest pain. Patient does have a history of noncompliance with her Coumadin and CPAP. Other than chest pain and lower extremity wounds, she does not have any other symptoms. REVIEW OF SYSTEMS: Negative in 14 out of 14 systems except as noted above. EMERGENCY ROOM (ER) COURSE: The patient in the emergency room was given one dose of Ancef for her lower extremity wounds. Her troponin was checked for the chest pain and was negative. Her EKG did not show any acute changes. She is being admitted for further evaluation with the atypical chest pain as well as for cellulitis. PAST MEDICAL HISTORY: As noted above in history of present illness (HPI). PAST SURGICAL HISTORY: The patient has a history of appendectomy, cholecystectomy, dilatation and curettage (D and C), cataract extraction, and carpal tunnel release surgery on the right. MEDICATIONS: Patient's home medications are: - Tylenol 1000 mg by mouth every 6 hours as needed for pain - Senna Plus one tablet by mouth twice a day as needed for constipation - albuterol 2.5 mcg every 4 hours as needed for shortness of breath - Synthroid 25 mcg by mouth daily - Prilosec 20 mg by mouth daily - potassium 20 mg by mouth twice a day - torsemide 20 mg by mouth daily - warfarin 5 mg by mouth daily ALLERGIES: She is allergic to DIRITHROMYCIN, PENICILLINS, SULFA DRUGS, SULFA DRUG CROSS-REACTORS. FAMILY HISTORY: Reports her father of metastatic cancer of unknown primary. SOCIAL HISTORY: Patient currently lives in residential housing. She is . She is pretty much nonambulatory and uses a wheelchair and transfers on her own to the bathroom or the shower. No smoking, alcohol, or drugs. PHYSICAL EXAMINATION: On exam, her vital signs: She is afebrile to 96.5, blood pressure 113/53, pulse of 69, respirating 22, saturating 97% on room air. GENERAL: She is morbidly obese and not in any acute distress, breathing comfortably. CARDIOVASCULAR: Pacemaker in place, regular rate and rhythm, no murmurs, rubs, gallops. LUNGS: Clear to auscultation bilaterally. ABDOMEN: Obese, nontender, nondistended. EXTREMITIES: She has bilateral chronic venous stasis changes in her lower extremities. Her extremities are quite erythematous with areas of skin opening with serous drainage. No pus seen. Warm to touch. NEUROLOGIC: She is alert and oriented times three, follows simple commands. No focal neurologic deficits. PSYCHIATRIC: Mood is stable. LABORATORY DATA: Reveal a CBC with a white count of 11, hemoglobin 13, platelets of 210. Chemistry shows potassium of 3.8, creatinine of 1.18. Troponin negative times two. TSH 4.7, T4 1.6. ASSESSMENT AND PLAN: This is an 83-year-old female with past medical history of diabetes, atrial fibrillation, prior history of complete heart block with pacemaker, prior history of deep venous thrombosis (DVT) and pulmonary embolus (PE), hypertension, pulmonary hypertension, chronic morbid obesity with obstructive sleep apnea (ALCIRA) and cor pulmonale who has chronic lower extremity venous stasis changes who presents with cellulitis and atypical chest pain. 1. Cellulitis. It appears that her chronic venous stasis changes have exacerbated and she has a superimposed cellulitis. She tolerated the Ancef provided by the emergency room without any allergic response. I am going to continue that given that she has a penicillin allergy. It does not look like a purulent cellulitis so I do not think vancomycin or clindamycin is needed at this time. She should have wound care evaluate this patient and Dr. Fontana if he is available. 2. Patient's chest pain appears atypical in nature. I am admitting her for rule out acute coronary syndrome (ACS) as well. She will receive three troponins total. She is being placed on telemetry. Given that she has a significant cardiac history including history of chronic morbid obesity with obstructive sleep apnea (ALCIRA) and cor pulmonale/right heart failure with pulmonary hypertension and prominently dilated heart chambers, I am going to repeat an echo for this patient who is coming back in with atypical chest pain. 3. History of diabetes. At this time, it does not appear she is on any home medications for her diabetes. I am just going to place her on a sliding scale. 4. History of hypothyroidism. Will continue her home Synthroid 25 mcg daily. 5. History of atrial fibrillation. She is on anticoagulation with warfarin. 6. History of deep venous thrombosis (DVT) / pulmonary embolus (PE). As mentioned, this patient is on warfarin already for history of history of deep venous thrombosis (DVT) / pulmonary embolus (PE) as well as atrial fibrillation. She is currently subtherapeutic with an INR of 1.39. She has a long history of noncompliance. Given that the anticoagulation is also for deep venous thrombosis (DVT) / pulmonary embolus (PE), she will have to be bridged given that she is subtherapeutic. Therefore, I am going to start her on Lovenox 1 mg/kg to be continued until her INR is greater than 2. I am going to continue her home warfarin schedule at 5 mg daily, but for today I will give her a dose of 7.5 mg instead of 5. PT/INR should be checked daily and Coumadin adjusted accordingly. 7. Deep venous thrombosis (DVT) prophylaxis. Patient is already on Coumadin. MTDD
[2019-01-05] MEDS ORDERED: WARFARIN SOD 5 MG TAB PO ONE (18:30)
[2019-01-05 19:12] LABS: INR 1.38; PROTHROMBIN TIME 17.2 SECONDS (12.1-14.4)
--- NOTE | 2019-01-05 20:03 | ECGEPIP ---
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
[2019-01-05 20:53] VITALS: BP 134/63
[2019-01-05] MEDS: POTASSIUM CHLORIDE 10 MEQ SR TABLET PO SCH (22:22)
[2019-01-05] MEDS: ENOXAPARIN 100MG/1ML SYRINGE (J1650) SC SCH (22:23)
[2019-01-05] MEDS: ceFAZolin SOD 1 GM in D5W MINI-BAG PLUS 50 ML IV SCH (22:42)
[2019-01-06] VITALS (8 sets, daily range): BP systolic 120–181; BP diastolic 59–80
[2019-01-06] MEDS: ACETAMINOPHEN TAB 650MG DOSE (2X325MG) PO PRN ×4 (01:01→21:48)
[2019-01-06 05:08] LABS: HEMOGLOBIN 11.3 g/dl (12.0-15.5); MEAN CORPUSCULAR HEMOGLOBIN 28.7 pg (27.0-33.0); MEAN CORPUSCULAR HGB CONC 31.4 g/dl (32.0-36.5); MEAN CORPUSCULAR VOLUME 91.4 fl (80.0-96.0); PLATELET COUNT, AUTOMATED 177 10^3/uL (150-450); RED BLOOD COUNT 3.94 10^6/uL (4.00-5.40); WHITE BLOOD COUNT 6.8 10^3/uL (4.0-10.0)
[2019-01-06 05:25] LABS: CALCIUM LEVEL 7.7 MG/DL (8.8-10.2); CREATININE FOR GFR 1.16 MG/DL (0.55-1.30); GLOMERULAR FILTRATION RATE 47.5 (>32); POTASSIUM SERUM 3.9 MEQ/L (3.5-5.1)
[2019-01-06] MEDS: LEVOTHYROXINE 25MCG TABLET (0.025MG) PO SCH (06:11)
[2019-01-06] MEDS: ceFAZolin SOD 1 GM in D5W MINI-BAG PLUS 50 ML IV SCH ×2 (06:11→15:56)
[2019-01-06] MEDS: NYSTATIN 100,000 UNITS/GM TOPICAL PWD 15 GM TOP SCH ×2 (09:20→21:49)
[2019-01-06] MEDS: HumaLOG INSULIN (NovoLOG) PER UNIT SC SCH ×4 (09:20→21:38)
[2019-01-06] MEDS: POTASSIUM CHLORIDE 10 MEQ SR TABLET PO SCH ×2 (09:21→21:47)
[2019-01-06] MEDS: TORSEMIDE 20 MG TAB PO SCH (09:21)
[2019-01-06] MEDS: OMEPRAZOLE 20 MG CAP PO SCH (09:21)
--- NOTE | 2019-01-06 16:00 | IPN ---
DATE: 01/06/2019 SUBJECTIVE: The patient tells me that she is feeling better today. She tells me she is no longer having any shortness of breath. She is not having anymore chest pain. She denies any fevers, chills, lightheadedness, or dizziness. OBJECTIVE: VITAL SIGNS: Temperature 97.5, pulse 70, respiratory rate 18, blood pressure 137/68, oxygen saturation 95% on room air. GENERAL: She is a morbidly obese, elderly, female sitting on the edge of her bed. She does not appear to be in any acute distress. NEUROLOGIC: Cranial nerves II-XII are grossly intact. HEENT: No elevation of central venous pressure (CVP). CARDIOVASCULAR: S1, S2, regular. RESPIRATORY: Clear. ABDOMEN: Obese. EXTREMITIES: She has chronic venous stasis and chronic lymphedema bilaterally. She does have some weeping wounds in the pretibial area on the right and left scaling throughout. However, no obvious areas of cellulitis or infection. LABORATORY STUDIES: WBC 6.8, hemoglobin 11.3, platelet count 177. Chemistry Panel: Sodium 141, potassium 3.9, chloride 107, bicarbonate 28, BUN 19, creatinine 1.1. Multiple sets of cardiac enzymes are negative. A TSH was slightly elevated at 4.7. INR is 1.3. No microbiology. IMAGING STUDIES: The patient did have a CT angiography of the chest that did not reveal any evidence of any PE. She also had a vascular ultrasound that revealed no evidence of any DVT. ASSESSMENT AND PLAN: This is an 83-year-old female who presented with chest pain. 1. Chest pain, likely noncardiac in nature. It appears to have spontaneously resolved. I suspect it may have been more likely related to gastrointestinal (GI) with some reflux. Multiple sets of cardiac enzymes are negative. She does have a fairly significant complex cardiac history involving a transcatheter aortic valve replacement (TAVR), left atrial dilation, diastolic congestive heart failure. As such, an echocardiogram has been ordered for her though my suspicion for a cardiac etiology is quite low at this time. 2. Cellulitis. To me, there does not appear to be any active or acute cellulitis. She has been started cephazolin. I will place an advanced wound care consult with Dr. Fontana who follows the patient's wounds regularly. He may be able to confirm this for us and if so, we could potentially discontinue antibiotics and we will check a procalcitonin and have her work with occupational therapy as well as physical therapy. 3. Obstructive sleep apnea, noncompliant. 4. Obesity, complicating care. 5. Hypothyroidism. She is on Synthroid. Consider rechecking when her acute medical illness has resolved. 6. Atrial fibrillation. She has a history of complete heart block and status post pacer with dilated left atrium. She does not require any rate controlling agents. She is anticoagulated with Coumadin 5 mg daily. She is subtherapeutic and was started on a Lovenox bridge. I do not feel strongly about this. 7. History of deep vein thrombosis (DVT) and pulmonary embolism (PE). She is placed on a Lovenox bridge with the concern for this past medical history. However, this morning, it appears that we have definitively excluded these as active processes. She has a history of them. I do not know the nature of her hypercoagulable state. However, as such for the time being, I will continue her on the Lovenox bridge until she is therapeutic with her Coumadin. She certainly would not need to remain in the hospital for only this purpose. 8. History of diastolic congestive heart failure. Continue on torsemide. She appears to be intravascularly euvolemic. She does have chronic venous stasis and chronic lymphedema of bilateral lower extremities. Her blood pressure is optimized. 9. Gastroesophageal reflux disease. She is on omeprazole. I suspect that this is more than likely the etiology for her chest pain that she presented with. DISPOSITION: Pending wound care evaluation and echocardiogram.
[2019-01-06] MEDS: ALBUTEROL SULFATE 2.5 MG/0.5 ML INH NEB SOLN INH PRN (16:48)
[2019-01-06 16:55] LABS: INR 1.43; PROTHROMBIN TIME 17.7 SECONDS (12.1-14.4)
[2019-01-06] MEDS: WARFARIN SOD 5 MG TAB PO SCH (17:04)
[2019-01-06] MEDS: ENOXAPARIN 100MG/1ML SYRINGE (J1650) SC SCH (21:47)
--- NOTE | 2019-01-06 22:39 | ECHO ---
DATE OF PROCEDURE: 01/06/2019 REFERRING PHYSICIAN: Dr. Giuliana Addison INDICATION: Chest pain, unspecified. 2D MEASUREMENTS: Ventricular septum: 1.00 cm Posterior wall: 1.04 cm Left ventricle diastole: 4.0 cm Aortic annulus: 1.6 cm Inferior vena cava: 2.4 cm DOPPLER MEASUREMENTS: Aortic valve velocity: 257 cm/s Aortic valve VTI: 52.6 cm Peak aortic valve gradient: 26 mmHg Mean aortic valve gradient: 14 mmHg LVOT velocity: 119 cm/s LVOT VTI: 27.3 cm Mild mitral regurgitation. Mild mitral stenosis. Mitral E velocity: 196 cm/s Mitral deceleration time: 377 ms (pulse wave). Moderate tricuspid regurgitation. Estimated right ventricle systolic pressure: At least 80 mmHg assuming a right atrial pressure of at least 20 mmHg. Trace pulmonic regurgitation. DESCRIPTION: Underlying atrial fibrillation, ventricular paced rhythm. Image quality was fair. This was a 2D, M-mode, color flow Doppler and pulse wave Doppler examination and included mitral annular tissue Doppler. CONCLUSIONS: 1. Normal left ventricle wall thickness. Paradoxical septal motion with normal regional left ventricular (LV) wall motion and wall thickening elsewhere. Partial flattening of the curvature of the ventricular septum in systole in keeping with pressure overload of the right ventricle. Unable to assess LV diastolic function adequately in the setting of atrial fibrillation and mitral stenosis. 2. Severe elevation of estimated right ventricle systolic pressure (at least 80 mmHg) assuming right atrial pressure of at least 20 mmHg based on inferior vena cava dilatation with marked reduction of respiratory variation. Mild right ventricle dilatation with preserved right ventricular (RV) systolic function. At least moderate right atrial dilatation. Moderate tricuspid regurgitation. 3. Suggestive of elevated central venous pressure of at least 20 mmHg. Inferior vena cava plethora. 4. No pericardial effusion. 5. Severe left atrial dilatation. 6. Severe mitral annular calcification. Mild mitral stenosis and mild mitral regurgitation. 7. Status post transcatheter aortic valve bioprosthesis. No aortic stenosis or regurgitation. 8. Endocardial cardiac rhythm management leads seen in the atria and the right ventricle.
[2019-01-07] MEDS: ceFAZolin SOD 1 GM in D5W MINI-BAG PLUS 50 ML IV SCH ×4 (00:19→22:08)
[2019-01-07 02:00] VITALS: BP 111/56
[2019-01-07 06:00] VITALS: BP 143/67
[2019-01-07] MEDS: LEVOTHYROXINE 25MCG TABLET (0.025MG) PO SCH (06:17)
[2019-01-07] MEDS: OMEPRAZOLE 20 MG CAP PO SCH (09:48)
[2019-01-07] MEDS: TORSEMIDE 20 MG TAB PO SCH ×2 (09:48→22:06)
[2019-01-07] MEDS: POTASSIUM CHLORIDE 10 MEQ SR TABLET PO SCH ×2 (09:48→22:06)
[2019-01-07] MEDS: HumaLOG INSULIN (NovoLOG) PER UNIT SC SCH ×4 (09:48→22:06)
[2019-01-07] MEDS: NYSTATIN 100,000 UNITS/GM TOPICAL PWD 15 GM TOP SCH ×2 (09:49→22:07)
[2019-01-07 10:00] VITALS: BP 120/68
[2019-01-07 14:00] VITALS: BP 145/67
--- NOTE | 2019-01-07 16:03 | IPNPDOC ---
Text Note Date of Service The patient was seen on 01/07/19. NOTE Subjective: Patient is an 83-year-old female with a PMHx of DM2, A. fib, Complete HB s/p PM, Hx of DVT / PE, HTN, Pulmonary HTN, Chronic Morbid obesity, ALCIRA, Cor pulmonale, Chronic LE venous stasis ulcer who presented to the ER with comp laints of atypical chest pain and cellulitis of both her lower extremities. She was admitted to the hospital service for further evaluation and treatment. Patient was seen and examined at the bedside. Currently patient notes that her chest pain is resolved. She denies any palpitations. Denies any difficulty with breathing. Denies nausea, vomiting, abdominal pain, constipation, diarrhea or discomfort with urination. Patient does report that her legs appear to be slightly improved, however, still appeared to be red compared to what she is used to having at baseline. Objective: Vitals (See below) General: Lying in bed, no acute distress, comfortable, AAOx3 HEENT: NC, AT CVS: RRR, +S1S2 Lungs: Fair air entry b/l, -w/r/r Abdomen: Soft, ND, NT Extremities: Appears to have chronic venous stasis changes, bilateral erythema, warmth and tenderness noted Assessment and plan: s/p Atypical chest pain - unlikely 2/2 cardiac etiology, possibly 2/2 GI etiology - Patient has full resolution of chest pain - Patient does have a history of TAVR; LA dilation, Diastolic CHF - EKG 01/05: Electronic ventricular pacemaker - similar to 02/10/18 - Troponin trend x 3 negative Redness / Warmth / Tenderness - possibly 2/2 cellulitis, possibly 2/2 chronic venous stasis ulcer - Clinically appears to be chronic in nature - She remains afebrile and hemodynamically stable - s/p leukocytosis - Procalcitonin has been negative - Will DC Cefazolin - Dr. Fontana on consult - c/w PT & OT ALCIRA - non-compliant with CPAP Obestiy - complicating medical care Hypothyroidism - c/w Levothyroxine Atrial fibrillation - Currently not on rate control medications (re: Hx of Complete heart block s/p PM) - INR subtherapeutic - c/w full anticoagulation with Coumadin and Lovenox DVT / PE - INR subtherapeutic - c/w Lovenox and Coumadin Possible decompensated Diastolic CHF - ECHO 01/06: Paradoxical septal motion with normal LV wall motion, findings to suggest RV pressure overload, unable to assess LV diastolic function, severe elevation of RVSP - Will increase dose of Torsemide from QD to TID GERD - c/w Omeprazole DVT prophylaxis - c/w Warfarin and Lovenox Disposition: - Pending wound care evaluation VS,Fishbone, I+O VS, Fishbone, I+O Vital Signs Date Time Temp Pulse Resp B/P (MAP) Pulse Ox O2 Delivery O2 Flow Rate FiO2 01/07/19 14:00 97.6 70 18 145/67 (93) 100 01/05/19 20:30 Room Air I&O- Last 24 Hours up to 6 AM 01/07/19 06:00 Intake Total 1100 ml Output Total 1650 ml Balance -550 ml CAROLINE FOOTE MD Jan 07, 2019 16:03
[2019-01-07 17:34] LABS: INR 1.66; PROTHROMBIN TIME 19.9 SECONDS (12.1-14.4)
[2019-01-07] MEDS: WARFARIN SOD 5 MG TAB PO SCH (17:37)
[2019-01-07] MEDS: ALBUTEROL SULFATE 2.5 MG/0.5 ML INH NEB SOLN INH PRN (17:39)
[2019-01-07 18:00] VITALS: BP 129/60
[2019-01-07] MEDS ORDERED: TORSEMIDE 20 MG TAB PO SCH (21:00)
[2019-01-07 22:00] VITALS: BP 145/65
[2019-01-07] MEDS: ENOXAPARIN 100MG/1ML SYRINGE (J1650) SC SCH (22:07)
[2019-01-07] MEDS: ACETAMINOPHEN TAB 650MG DOSE (2X325MG) PO PRN (22:09)
[2019-01-08] MEDS: ALBUTEROL SULFATE 2.5 MG/0.5 ML INH NEB SOLN INH PRN ×2 (01:02→07:32)
[2019-01-08 02:00] VITALS: BP 129/63
[2019-01-08 06:00] VITALS: BP 139/63
[2019-01-08] MEDS: ceFAZolin SOD 1 GM in D5W MINI-BAG PLUS 50 ML IV SCH ×2 (06:49→16:17)
[2019-01-08] MEDS: LEVOTHYROXINE 25MCG TABLET (0.025MG) PO SCH (06:49)
[2019-01-08 08:29] LABS: BASO # 0.1 10^3/uL (0.0-0.2); BASO % 0.9 % (0.0-1.0); EOS # 0.1 10^3/uL (0.0-0.50); EOS % 1.9 % (0.0-3.0); HEMATOCRIT 35.8 % (36.0-47.0); HEMOGLOBIN 11.4 g/dl (12.0-15.5); LYMPH % 27.4 % (24.0-44.0); MEAN CORPUSCULAR HEMOGLOBIN 29.2 pg (27.0-33.0); MEAN CORPUSCULAR HGB CONC 31.8 g/dl (32.0-36.5); MEAN CORPUSCULAR VOLUME 91.8 fl (80.0-96.0); MONO # 0.5 10^3/uL (0.0-0.8); MONO % 7.3 % (0.0-5.0); NEUTROPHILS # 4.6 10^3/uL (1.8-7.7); PLATELET COUNT, AUTOMATED 180 10^3/uL (150-450); WHITE BLOOD COUNT 7.4 10^3/uL (4.0-10.0)
[2019-01-08 09:12] LABS: CALCIUM LEVEL 7.7 MG/DL (8.8-10.2); CREATININE FOR GFR 1.13 MG/DL (0.55-1.30); POTASSIUM SERUM 3.9 MEQ/L (3.5-5.1)
[2019-01-08] MEDS: OMEPRAZOLE 20 MG CAP PO SCH (09:22)
[2019-01-08] MEDS: HumaLOG INSULIN (NovoLOG) PER UNIT SC SCH ×4 (09:22→21:00)
[2019-01-08] MEDS: NYSTATIN 100,000 UNITS/GM TOPICAL PWD 15 GM TOP SCH ×2 (09:23→21:00)
[2019-01-08] MEDS: POTASSIUM CHLORIDE 10 MEQ SR TABLET PO SCH ×2 (09:23→20:22)
[2019-01-08] MEDS: TORSEMIDE 20 MG TAB PO SCH ×2 (09:23→20:25)
[2019-01-08 10:00] VITALS: BP 129/60
[2019-01-08] MEDS: ACETAMINOPHEN TAB 650MG DOSE (2X325MG) PO PRN (11:42)
[2019-01-08 14:00] VITALS: BP 130/64
[2019-01-08] MEDS: EUCERIN 120GM CREAM TOP SCH (16:16)
--- NOTE | 2019-01-08 17:15 | IPNPDOC ---
Text Note Date of Service The patient was seen on 01/08/19. NOTE Subjective: Patient is an 83-year-old female with a PMHx of DM2, A. fib, Complete HB s/p PM, Hx of DVT / PE, HTN, Pulmonary HTN, Chronic Morbid obesity, ALCIRA, Cor pulmonale, Chronic LE venous stasis ulcer who presented to the ER with complaints of atypical chest pain and cellulitis of both her lower extremities. She was admitted to the hospital service for further evaluation and treatment. Patient was seen and examined at the bedside. Currently patient denies any nausea, vomiting, abdominal pain, C/D. Denies any dysuria. Patient still complains of b/l leg pain. Denies any CP, SOB or palpitations. Objective: Vitals (See below) General: Lying in bed, no acute distress, comfortable, AAOx3 HEENT: NC, AT CVS: RRR, +S1S2 Lungs: Fair air entry b/l, auscultations without rhonchi, rales or wheezing Abdomen: Soft, morbidly obese, without any distention or tenderness Extremities: Appears to have chronic venous stasis changes, bilateral erythema, warmth and tenderness noted Assessment and plan: s/p Atypical chest pain - unlikely 2/2 cardiac etiology, possibly 2/2 GI etiology - Patient has full resolution of chest pain - Patient does have a history of TAVR; LA dilation, Diastolic CHF - EKG 01/05: Electronic ventricular pacemaker - similar to 02/10/18 - Troponin trend x 3 negative Redness / Warmth / Tenderness - possibly 2/2 cellulitis, possibly 2/2 chronic venous stasis ulcer - Clinically appears to be chronic in nature - She remains afebrile and hemodynamically stable - s/p leukocytosis - Procalcitonin has been negative - Cefazolin has been discontinued - c/w Wound care as per recommendations from Dr. Fontana - c/w PT & OT ALCIRA - non-compliant with CPAP Obestiy - complicating medical care Hypothyroidism - c/w Levothyroxine Atrial fibrillation - Currently not on rate control medications (re: Hx of Complete heart block s/p PM) - INR subtherapeutic - c/w full anticoagulation with Coumadin and Lovenox DVT / PE - INR subtherapeutic - c/w Lovenox and Coumadin Possible decompensated Diastolic CHF - ECHO 01/06: Paradoxical septal motion with normal LV wall motion, findings to suggest RV pressure overload, unable to assess LV diastolic function, severe elevation of RVSP - c/w Torsemide BID GERD - c/w Omeprazole DVT prophylaxis - c/w Warfarin and Lovenox Disposition: - c/w Diuresis - DC Abx VS,Fishbone, I+O VS, Fishbone, I+O Laboratory Tests 01/08/19 08:03 Red Blood Count 3.90 L, Mean Corpuscular Volume 91.8, Mean Corpuscular Hemoglobin 29.2, Mean Corpuscular Hemoglobin Concent 31.8 L, Red Cell Distribution Width 15.7 H, Neutrophils (%) (Auto) 62.0, Lymphocytes (%) (Auto) 27.4, Monocytes (%) (Auto) 7.3 H, Eosinophils (%) (Auto) 1.9, Basophils (%) (Auto) 0.9, Neutrophils # (Auto) 4.6, Lymphocytes # (Auto) 2.0, Monocytes # (Auto) 0.5, Eosinophils # (Auto) 0.1, Basophils # (Auto) 0.1, Calcium Level 7.7 L Vital Signs Date Time Temp Pulse Resp B/P (MAP) Pulse Ox O2 Delivery O2 Flow Rate FiO2 01/08/19 14:00 98.4 73 18 130/64 (86) 98 01/05/19 20:30 Room Air I&O- Last 24 Hours up to 6 AM 01/08/19 06:00 Intake Total 1300 ml Output Total 2075 ml Balance -775 ml CAROLINE FOOTE MD Jan 08, 2019 17:15
[2019-01-08 17:50] LABS: INR 2.02; PROTHROMBIN TIME 23.2 SECONDS (12.1-14.4)
[2019-01-08 18:00] VITALS: BP 125/68
[2019-01-08] MEDS: WARFARIN SOD 5 MG TAB PO SCH (18:37)
[2019-01-08] MEDS: ENOXAPARIN 100MG/1ML SYRINGE (J1650) SC SCH (20:22)
[2019-01-08 20:25] VITALS: BP 108/56
[2019-01-09] MEDS: guaiFENesin SYRUP 200 MG/10 ML UDC PO PRN ×3 (00:13→17:21)
[2019-01-09] MEDS: ALBUTEROL SULFATE 2.5 MG/0.5 ML INH NEB SOLN INH PRN ×2 (00:18→05:26)
[2019-01-09 02:00] VITALS: BP 141/62
[2019-01-09] MEDS: LEVOTHYROXINE 25MCG TABLET (0.025MG) PO SCH (05:35)
[2019-01-09] MEDS: TORSEMIDE 20 MG TAB PO SCH ×2 (05:46→21:21)
[2019-01-09] MEDS: ACETAMINOPHEN TAB 650MG DOSE (2X325MG) PO PRN (05:47)
[2019-01-09 06:00] VITALS: BP 141/63
[2019-01-09 06:28] LABS: BASO # 0.1 10^3/uL (0.0-0.2); BASO % 0.9 % (0.0-1.0); EOS # 0.2 10^3/uL (0.0-0.50); EOS % 2.5 % (0.0-3.0); HEMATOCRIT 36.1 % (36.0-47.0); HEMOGLOBIN 11.6 g/dl (12.0-15.5); LYMPH # 1.6 10^3/uL (1.5-4.5); LYMPH % 21.2 % (24.0-44.0); MEAN CORPUSCULAR HEMOGLOBIN 29.1 pg (27.0-33.0); MEAN CORPUSCULAR HGB CONC 32.1 g/dl (32.0-36.5); MEAN CORPUSCULAR VOLUME 90.7 fl (80.0-96.0); MONO # 0.6 10^3/uL (0.0-0.8); MONO % 8.2 % (0.0-5.0); NEUTROPHILS # 5.1 10^3/uL (1.8-7.7); NEUTROPHILS % 66.7 % (36.0-66.0); PLATELET COUNT, AUTOMATED 195 10^3/uL (150-450); RED BLOOD COUNT 3.98 10^6/uL (4.00-5.40); WHITE BLOOD COUNT 7.6 10^3/uL (4.0-10.0)
[2019-01-09 06:39] LABS: INR 2.15; PROTHROMBIN TIME 24.4 SECONDS (12.1-14.4)
[2019-01-09 06:53] LABS: CREATININE FOR GFR 1.02 MG/DL (0.55-1.30); GLOMERULAR FILTRATION RATE 55.1 (>32); MAGNESIUM LEVEL 1.4 MG/DL (1.8-2.4)
[2019-01-09] MEDS: MAG SULF 1GM/100ML (MAG RUN) 1 GM in APPROPRIATE DILUENT 1 EA IV SCH ×2 (08:52→10:04)
[2019-01-09] MEDS: HumaLOG INSULIN (NovoLOG) PER UNIT SC SCH ×4 (08:52→21:00)
[2019-01-09] MEDS: POTASSIUM CHLORIDE 10 MEQ SR TABLET PO SCH ×2 (08:53→21:21)
[2019-01-09] MEDS: EUCERIN 120GM CREAM TOP SCH (08:53)
[2019-01-09] MEDS: OMEPRAZOLE 20 MG CAP PO SCH (08:53)
[2019-01-09] MEDS: NYSTATIN 100,000 UNITS/GM TOPICAL PWD 15 GM TOP SCH ×2 (08:54→21:25)
[2019-01-09 10:00] VITALS: BP 125/58
--- NOTE | 2019-01-09 12:03 | IPNPDOC ---
Text Note Date of Service The patient was seen on 01/09/19. NOTE Subjective: Patient is an 83-year-old female with a PMHx of DM2, A. fib, Complete HB s/p PM, Hx of DVT / PE, HTN, Pulmonary HTN, Chronic Morbid obesity, ALCIRA, Cor pulmonale, Chronic LE venous stasis ulcer who presented to the ER with complaints of atypical chest pain and cellulitis of both her lower extremities. She was admitted to the hospital service for further evaluation and treatment. Patient was seen and examined at the bedside. Currently patient notes that she is not experiencing any chest pain, shortness of breath or palpitations. Patient denies any nausea, vomiting, abdominal pain, constipation, diarrhea or discomfort with urination. She does note that her lower extremities appear to have slight decrease in swelling. She still notes that they're tender. Objective: Vitals (See below) General: Lying in bed, no acute distress, comfortable, AAOx3 HEENT: NC, AT CVS: RRR, +S1S2 Lungs: Fair air entry b/l, he does not appear to be any evidence of wheezing, rhonchi or rales Abdomen: Abdomen is soft, nondistended, without any tenderness. 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 Fontana - c/w PT & OT ALCIRA - non-compliant with CPAP Obestiy - complicating medical care Hypothyroidism - c/w Levothyroxine Atrial fibrillation - Currently not on rate control medications (re: Hx of Complete heart block s/p PM) - INR therapeutic - c/w full anticoagulation with Coumadin; Will DC Lovenox DVT / PE - INR therapeutic - c/w Coumadin; Will DC Lovenox Possible decompensated Diastolic CHF - ECHO 01/06: Paradoxical septal motion with normal LV wall motion, findings to suggest RV pressure overload, unable to assess LV diastolic function, severe elevation of RVSP - c/w Torsemide BID GERD - c/w Omeprazole DVT prophylaxis - c/w Warfarin; Will DC Lovenox Disposition: - c/w Diuresis - DC Abx VS,Fishbone, I+O VS, Fishbone, I+O Laboratory Tests 01/09/19 05:57 Red Blood Count 3.98 L, Mean Corpuscular Volume 90.7, Mean Corpuscular Hemoglobin 29.1, Mean Corpuscular Hemoglobin Concent 32.1, Red Cell Distribution Width 15.5 H, Neutrophils (%) (Auto) 66.7 H, Lymphocytes (%) (Auto) 21.2 L, Monocytes (%) (Auto) 8.2 H, Eosinophils (%) (Auto) 2.5, Basophils (%) (Auto) 0.9, Neutrophils # (Auto) 5.1, Lymphocytes # (Auto) 1.6, Monocytes # (Auto) 0.6, Eosinophils # (Auto) 0.2, Basophils # (Auto) 0.1, Calcium Level 8.0 L Vital Signs Date Time Temp Pulse Resp B/P (MAP) Pulse Ox O2 Delivery O2 Flow Rate FiO2 01/09/19 10:00 98.8 70 18 125/58 (80) 97 01/05/19 20:30 Room Air I&O- Last 24 Hours up to 6 AM 01/09/19 06:00 Intake Total 990 ml Output Total 600 ml Balance 390 ml CAROLINE FOOTE MD Jan 09, 2019 12:03
[2019-01-09 14:00] VITALS: BP 127/85
[2019-01-09] MEDS: WARFARIN SOD 5 MG TAB PO SCH (17:15)
[2019-01-09 18:00] VITALS: BP 138/58
[2019-01-09 22:00] VITALS: BP 134/75
[2019-01-10] MEDS: guaiFENesin SYRUP 200 MG/10 ML UDC PO PRN ×3 (00:10→20:45)
[2019-01-10] MEDS: ALBUTEROL SULFATE 2.5 MG/0.5 ML INH NEB SOLN INH PRN ×3 (00:18→22:16)
[2019-01-10 02:00] VITALS: BP 144/66
[2019-01-10] MEDS: LEVOTHYROXINE 25MCG TABLET (0.025MG) PO SCH (05:21)
[2019-01-10 06:00] VITALS: BP 160/72
[2019-01-10 06:19] LABS: BASO # 0.1 10^3/uL (0.0-0.2); BASO % 0.7 % (0.0-1.0); EOS # 0.3 10^3/uL (0.0-0.50); HEMOGLOBIN 11.2 g/dl (12.0-15.5); LYMPH # 1.4 10^3/uL (1.5-4.5); LYMPH % 19.9 % (24.0-44.0); MEAN CORPUSCULAR HEMOGLOBIN 29.2 pg (27.0-33.0); MEAN CORPUSCULAR VOLUME 91.4 fl (80.0-96.0); MONO # 0.6 10^3/uL (0.0-0.8); MONO % 7.8 % (0.0-5.0); NEUTROPHILS # 4.7 10^3/uL (1.8-7.7); PLATELET COUNT, AUTOMATED 190 10^3/uL (150-450); RED BLOOD COUNT 3.83 10^6/uL (4.00-5.40); WHITE BLOOD COUNT 7.1 10^3/uL (4.0-10.0)
[2019-01-10 06:28] LABS: INR 2.25; PROTHROMBIN TIME 25.3 SECONDS (12.1-14.4)
[2019-01-10 06:44] LABS: CALCIUM LEVEL 7.8 MG/DL (8.8-10.2); CREATININE FOR GFR 1.1 MG/DL (0.55-1.30); GLOMERULAR FILTRATION RATE 50.5 (>32); MAGNESIUM LEVEL 1.9 MG/DL (1.8-2.4); POTASSIUM SERUM 3.8 MEQ/L (3.5-5.1)
[2019-01-10] MEDS: OMEPRAZOLE 20 MG CAP PO SCH (08:23)
[2019-01-10] MEDS: NYSTATIN 100,000 UNITS/GM TOPICAL PWD 15 GM TOP SCH ×2 (08:23→20:47)
[2019-01-10] MEDS: HumaLOG INSULIN (NovoLOG) PER UNIT SC SCH ×4 (08:23→20:45)
[2019-01-10] MEDS: POTASSIUM CHLORIDE 10 MEQ SR TABLET PO SCH ×2 (08:23→20:45)
[2019-01-10] MEDS: TORSEMIDE 20 MG TAB PO SCH ×2 (08:23→20:45)
[2019-01-10] MEDS: EUCERIN 120GM CREAM TOP SCH (08:24)
[2019-01-10 10:00] VITALS: BP 147/72
[2019-01-10] MEDS ORDERED: MOM 30ML SUSPENSION UDC PO ONE (12:00)
[2019-01-10] MEDS: ACETAMINOPHEN TAB 650MG DOSE (2X325MG) PO PRN ×2 (12:31→23:32)
[2019-01-10 14:00] VITALS: BP 117/57
--- NOTE | 2019-01-10 14:05 | IPNPDOC ---
Text Note Date of Service The patient was seen on 01/10/19. NOTE Subjective: Patient is an 83-year-old female with a PMHx of DM2, A. fib, Complete HB s/p PM, Hx of DVT / PE, HTN, Pulmonary HTN, Chronic Morbid obesity, ALCIRA, Cor pulmonale, Chronic LE venous stasis ulcer who presented to the ER with complaints of atypical chest pain and cellulitis of both her lower extremities. She was admitted to the hospital service for further evaluation and treatment. Patient was seen and examined at the bedside. , Currently patient is without complaints. First, she denies chest pain, shortness of breath, palpitations, nausea, vomiting, abdominal pain. Patient does report some constipation. Denies any discomfort with urination. Still reports that she continues urinate significantly. Objective: Vitals (See below) General: Lying in bed, no acute distress, comfortable, AAOx3 HEENT: NC, AT CVS: RRR, +S1S2 Lungs: Fair air entry b/l, Abdomen: Abdomen is obese but remains soft without distention or tenderness Extremities: Wounds appear chronic in nature. 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 Fontana - c/w PT & OT ALCIRA - non-compliant with CPAP Obestiy - complicating medical care Hypothyroidism - c/w Levothyroxine Atrial fibrillation - Currently not on rate control medications (re: Hx of Complete heart block s/p PM) - INR therapeutic - c/w full anticoagulation with Coumadin; DC Lovenox DVT / PE - INR therapeutic - c/w Coumadin; Will DC Lovenox Possible decompensated Diastolic CHF - ECHO 01/06: Paradoxical septal motion with normal LV wall motion, findings to suggest RV pressure overload, unable to assess LV diastolic function, severe elevation of RVSP - c/w Torsemide BID GERD - c/w Omeprazole DVT prophylaxis - c/w Warfarin; Will DC Lovenox Disposition: - c/w PT & OT VS,Fishbone, I+O VS, Fishbone, I+O Laboratory Tests 01/10/19 05:57 Red Blood Count 3.83 L, Mean Corpuscular Volume 91.4, Mean Corpuscular Hemoglobin 29.2, Mean Corpuscular Hemoglobin Concent 32.0, Red Cell Distribution Width 15.6 H, Neutrophils (%) (Auto) 67.0 H, Lymphocytes (%) (Auto) 19.9 L, Monocytes (%) (Auto) 7.8 H, Eosinophils (%) (Auto) 4.0 H, Basophils (%) (Auto) 0.7, Neutrophils # (Auto) 4.7, Lymphocytes # (Auto) 1.4 L, Monocytes # (Auto) 0.6, Eosinophils # (Auto) 0.3, Basophils # (Auto) 0.1, Calcium Level 7.8 L Vital Signs Date Time Temp Pulse Resp B/P (MAP) Pulse Ox O2 Delivery O2 Flow Rate FiO2 01/10/19 10:00 97.8 70 20 147/72 (97) 98 01/05/19 20:30 Room Air I&O- Last 24 Hours up to 6 AM 01/10/19 06:00 Intake Total 1040 ml Output Total 1000 ml Balance 40 ml CAROLINE FOOTE MD Jan 10, 2019 14:05
[2019-01-10] MEDS: WARFARIN SOD 5 MG TAB PO SCH (17:07)
[2019-01-10 18:00] VITALS: BP 136/68
[2019-01-10 22:00] VITALS: BP 159/70
[2019-01-11] VITALS (7 sets, daily range): BP systolic 109–159; BP diastolic 67–76
[2019-01-11] MEDS: LEVOTHYROXINE 25MCG TABLET (0.025MG) PO SCH (05:41)
[2019-01-11] MEDS: guaiFENesin SYRUP 200 MG/10 ML UDC PO PRN ×3 (05:41→23:56)
[2019-01-11 06:14] LABS: BASO # 0.1 10^3/uL (0.0-0.2); BASO % 1.2 % (0.0-1.0); EOS # 0.3 10^3/uL (0.0-0.50); EOS % 4.9 % (0.0-3.0); HEMATOCRIT 38.2 % (36.0-47.0); HEMOGLOBIN 12.2 g/dl (12.0-15.5); LYMPH # 1.7 10^3/uL (1.5-4.5); LYMPH % 24.6 % (24.0-44.0); MEAN CORPUSCULAR HEMOGLOBIN 28.6 pg (27.0-33.0); MEAN CORPUSCULAR HGB CONC 31.9 g/dl (32.0-36.5); MEAN CORPUSCULAR VOLUME 89.7 fl (80.0-96.0); MONO # 0.5 10^3/uL (0.0-0.8); MONO % 7.2 % (0.0-5.0); NEUTROPHILS # 4.2 10^3/uL (1.8-7.7); NEUTROPHILS % 61.8 % (36.0-66.0); PLATELET COUNT, AUTOMATED 220 10^3/uL (150-450); RED BLOOD COUNT 4.26 10^6/uL (4.00-5.40); WHITE BLOOD COUNT 6.8 10^3/uL (4.0-10.0)
[2019-01-11 06:23] LABS: INR 2.32; PROTHROMBIN TIME 25.9 SECONDS (12.1-14.4)
[2019-01-11 06:32] LABS: CALCIUM LEVEL 8.2 MG/DL (8.8-10.2); CREATININE FOR GFR 1.09 MG/DL (0.55-1.30); MAGNESIUM LEVEL 1.9 MG/DL (1.8-2.4)
[2019-01-11] MEDS: ALBUTEROL SULFATE 2.5 MG/0.5 ML INH NEB SOLN INH PRN (07:55)
[2019-01-11] MEDS: HumaLOG INSULIN (NovoLOG) PER UNIT SC SCH ×4 (07:59→21:00)
[2019-01-11] MEDS: SENOKOT S TAB PO PRN (08:00)
[2019-01-11] MEDS: NYSTATIN 100,000 UNITS/GM TOPICAL PWD 15 GM TOP SCH ×2 (08:00→21:00)
[2019-01-11] MEDS: EUCERIN 120GM CREAM TOP SCH (08:00)
[2019-01-11] MEDS: OMEPRAZOLE 20 MG CAP PO SCH (08:01)
[2019-01-11] MEDS: TORSEMIDE 20 MG TAB PO SCH ×2 (08:01→20:30)
[2019-01-11] MEDS: POTASSIUM CHLORIDE 10 MEQ SR TABLET PO SCH ×2 (08:01→21:14)
[2019-01-11] MEDS: ACETAMINOPHEN TAB 650MG DOSE (2X325MG) PO PRN (12:01)
--- NOTE | 2019-01-11 12:32 | IPNPDOC ---
Text Note Date of Service The patient was seen on 01/11/19. NOTE Subjective: Patient is an 83-year-old female with a PMHx of DM2, A. fib, Complete HB s/p PM, Hx of DVT / PE, HTN, Pulmonary HTN, Chronic Morbid obesity, ALCIRA, Cor pulmonale, Chronic LE venous stasis ulcer who presented to the ER with complaints of atypical chest pain and cellulitis of both her lower extremities. She was admitted to the hospital service for further evaluation and treatment. Patient was seen and examined at the bedside. , Currently patient has no new complaints. She denies any difficulty breathing, cough, chest pain or palpitations. Denies nausea, vomiting, abdominal pain, constipation. Patient has noted a bowel movement yesterday. Notes that she continues to urinate but does not experience any discomfort. Objective: Vitals (See below) General: Lying in bed, no acute distress, comfortable, AAOx3 HEENT: NC, AT CVS: RRR, +S1S2 Lungs: Fair air entry b/l, there are no appreciable crackles, wheezing or rhonchi Abdomen: Does not appear to be any abdominal distention or tenderness. 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 Fontana - c/w PT & OT ALCIRA - Non-compliant with CPAP Obestiy - complicating medical care Hypothyroidism - c/w Levothyroxine Atrial fibrillation - Currently not on rate control medications (re: Hx of Complete heart block s/p PM) - INR therapeutic - c/w full anticoagulation with Coumadin; DC Lovenox DVT / PE - INR therapeutic - c/w Coumadin; Will DC Lovenox Possible decompensated Diastolic CHF - ECHO 01/06: Paradoxical septal motion with normal LV wall motion, findings to suggest RV pressure overload, unable to assess LV diastolic function, severe elevation of RVSP - c/w Torsemide BID GERD - c/w Omeprazole DVT prophylaxis - c/w full anticoagulation with Warfarin Disposition: - c/w PT & OT VS,Fishbone, I+O VS, Fishbone, I+O Laboratory Tests 01/11/19 05:36 Red Blood Count 4.26, Mean Corpuscular Volume 89.7, Mean Corpuscular Hemoglobin 28.6, Mean Corpuscular Hemoglobin Concent 31.9 L, Red Cell Distribution Width 15.5 H, Neutrophils (%) (Auto) 61.8, Lymphocytes (%) (Auto) 24.6, Monocytes (%) (Auto) 7.2 H, Eosinophils (%) (Auto) 4.9 H, Basophils (%) (Auto) 1.2 H, Neutrophils # (Auto) 4.2, Lymphocytes # (Auto) 1.7, Monocytes # (Auto) 0.5, Eosinophils # (Auto) 0.3, Basophils # (Auto) 0.1, Calcium Level 8.2 L Vital Signs Date Time Temp Pulse Resp B/P (MAP) Pulse Ox O2 Delivery O2 Flow Rate FiO2 01/11/19 10:00 97.3 70 19 156/67 (96) 100 01/05/19 20:30 Room Air I&O- Last 24 Hours up to 6 AM 01/11/19 06:00 Intake Total 920 ml Output Total 1775 ml Balance -855 ml CAROLINE FOOTE MD Jan 11, 2019 12:32
[2019-01-11] MEDS: WARFARIN SOD 5 MG TAB PO SCH (17:36)
[2019-01-12] MEDS: ALBUTEROL SULFATE 2.5 MG/0.5 ML INH NEB SOLN INH PRN ×3 (00:02→17:41)
[2019-01-12] MEDS ORDERED: SODIUM CHLORIDE NASAL 0.65% SPRAY BTL (OCEAN) PRN (00:15)
[2019-01-12] MEDS: LEVOTHYROXINE 25MCG TABLET (0.025MG) PO SCH (05:09)
[2019-01-12] MEDS: ACETAMINOPHEN TAB 650MG DOSE (2X325MG) PO PRN ×2 (05:10→09:47)
[2019-01-12] MEDS: guaiFENesin SYRUP 200 MG/10 ML UDC PO PRN ×2 (05:20→17:19)
[2019-01-12 06:00] VITALS: BP 115/74
[2019-01-12 06:28] LABS: BASO # 0.1 10^3/uL (0.0-0.2); BASO % 1.1 % (0.0-1.0); EOS # 0.4 10^3/uL (0.0-0.50); EOS % 5.5 % (0.0-3.0); HEMATOCRIT 36.2 % (36.0-47.0); HEMOGLOBIN 11.3 g/dl (12.0-15.5); LYMPH # 1.3 10^3/uL (1.5-4.5); LYMPH % 19.1 % (24.0-44.0); MEAN CORPUSCULAR HEMOGLOBIN 28.8 pg (27.0-33.0); MEAN CORPUSCULAR HGB CONC 31.2 g/dl (32.0-36.5); MEAN CORPUSCULAR VOLUME 92.1 fl (80.0-96.0); MONO # 0.5 10^3/uL (0.0-0.8); MONO % 7.9 % (0.0-5.0); NEUTROPHILS # 4.3 10^3/uL (1.8-7.7); NEUTROPHILS % 65.9 % (36.0-66.0); PLATELET COUNT, AUTOMATED 191 10^3/uL (150-450); RED BLOOD COUNT 3.93 10^6/uL (4.00-5.40); WHITE BLOOD COUNT 6.6 10^3/uL (4.0-10.0)
[2019-01-12 06:39] LABS: INR 2.49; PROTHROMBIN TIME 27.4 SECONDS (12.1-14.4)
[2019-01-12 07:02] LABS: CALCIUM LEVEL 8.1 MG/DL (8.8-10.2); CREATININE FOR GFR 1.05 MG/DL (0.55-1.30); GLOMERULAR FILTRATION RATE 53.3 (>32); MAGNESIUM LEVEL 1.8 MG/DL (1.8-2.4); POTASSIUM SERUM 4.1 MEQ/L (3.5-5.1)
[2019-01-12] MEDS: POTASSIUM CHLORIDE 10 MEQ SR TABLET PO SCH ×2 (08:10→21:00)
[2019-01-12] MEDS: TORSEMIDE 20 MG TAB PO SCH (08:11)
[2019-01-12] MEDS: HumaLOG INSULIN (NovoLOG) PER UNIT SC SCH ×4 (08:11→21:00)
[2019-01-12] MEDS: OMEPRAZOLE 20 MG CAP PO SCH (08:11)
[2019-01-12] MEDS: NYSTATIN 100,000 UNITS/GM TOPICAL PWD 15 GM TOP SCH ×2 (08:11→21:00)
[2019-01-12] MEDS: EUCERIN 120GM CREAM TOP SCH (08:12)
--- NOTE | 2019-01-12 09:44 | IPNPDOC ---
Text Note Date of Service The patient was seen on 01/12/19. NOTE Subjective: Patient is an 83-year-old female with a PMHx of DM2, A. fib, Complete HB s/p PM, Hx of DVT / PE, HTN, Pulmonary HTN, Chronic Morbid obesity, ALCIRA, Cor pulmonale, Chronic LE venous stasis ulcer who presented to the ER with complaints of atypical chest pain and cellulitis of both her lower extremities. She was admitted to the hospital service for further evaluation and treatment. Patient was seen and examined at the bedside. Currently patient notes that she feels fatigued. Currently patient denies chest pain, palpitations or any significant shortness of breath. Does note a mild cough. Denies any nausea, vomiting, abdominal pain, constipation, diarrhea. A she continues to urinate. However, denies any discomfort with urination. Patient has had no events overnight Objective: Vitals (See below) General: Lying in bed, no acute distress, comfortable, AAOx3 HEENT: NC, AT CVS: RRR, +S1S2 Lungs: Fair air entry b/l, auscultation is without wheezing, rales or rhonchi Abdomen: Abdomen is soft without distention or tenderness Extremities: Dressing has been partially removed; chronic venous stasis ulcers appear unchanged, no significant pitting edema Assessment and plan: Redness / Warmth / Tenderness - possibly 2/2 chronic venous stasis ulcer, less likely 2/2 cellulitis - Clinically appears to be chronic in nature; was this morning do not appear to show any significant change - She remains afebrile and hemodynamically stable - s/p leukocytosis - Procalcitonin has been negative; s/p Cefazolin - c/w Wound care as per recommendations from Dr. 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; LA dilation, Diastolic CHF - EKG 01/05: Electronic ventricular pacemaker - similar to 02/10/18 - Troponin trend x 3 negative ALCIRA - Non-compliant with CPAP Obestiy - complicating medical care Hypothyroidism - c/w Levothyroxine Atrial fibrillation - Currently not on rate control medications (re: Hx of Complete heart block s/p PM) - INR therapeutic - c/w full anticoagulation with Coumadin DVT / PE - INR therapeutic - c/w Coumadin; Will DC Lovenox GERD - c/w Omeprazole DVT prophylaxis - c/w full anticoagulation with Warfarin Disposition: - c/w PT & OT - Possibly may require subacute rehabilitation VS,Harpreet, I+O VS, Harpreet, I+O Laboratory Tests 01/12/19 06:10 Red Blood Count 3.93 L, Mean Corpuscular Volume 92.1, Mean Corpuscular Hemog lobin 28.8, Mean Corpuscular Hemoglobin Concent 31.2 L, Red Cell Distribution Width 15.3 H, Neutrophils (%) (Auto) 65.9, Lymphocytes (%) (Auto) 19.1 L, Monocytes (%) (Auto) 7.9 H, Eosinophils (%) (Auto) 5.5 H, Basophils (%) (Auto) 1.1 H, Neutrophils # (Auto) 4.3, Lymphocytes # (Auto) 1.3 L, Monocytes # (Auto) 0.5, Eosinophils # (Auto) 0.4, Basophils # (Auto) 0.1, Calcium Level 8.1 L Vital Signs Date Time Temp Pulse Resp B/P (MAP) Pulse Ox O2 Delivery O2 Flow Rate FiO2 01/12/19 06:00 97.4 70 18 115/74 (88) 99 I&O- Last 24 Hours up to 6 AM 01/12/19 06:00 Intake Total 1900 ml Output Total 700 ml Balance 1200 ml CAROLINE FOOTE MD Jan 12, 2019 09:44
[2019-01-12] MEDS: SENOKOT S TAB PO PRN (09:46)
[2019-01-12 14:00] VITALS: BP 113/72
[2019-01-12] MEDS: WARFARIN SOD 5 MG TAB PO SCH (17:16)
[2019-01-12 21:00] VITALS: BP 148/70
[2019-01-13 06:00] VITALS: BP 153/74
[2019-01-13] MEDS: LEVOTHYROXINE 25MCG TABLET (0.025MG) PO SCH (06:15)
[2019-01-13] MEDS: ACETAMINOPHEN TAB 650MG DOSE (2X325MG) PO PRN ×2 (06:15→11:20)
[2019-01-13 06:27] LABS: BASO # 0.1 10^3/uL (0.0-0.2); BASO % 1.5 % (0.0-1.0); EOS # 0.2 10^3/uL (0.0-0.50); EOS % 3.9 % (0.0-3.0); HEMATOCRIT 34.8 % (36.0-47.0); HEMOGLOBIN 11.1 g/dl (12.0-15.5); LYMPH # 1.4 10^3/uL (1.5-4.5); LYMPH % 23.7 % (24.0-44.0); MEAN CORPUSCULAR HEMOGLOBIN 29.2 pg (27.0-33.0); MEAN CORPUSCULAR HGB CONC 31.9 g/dl (32.0-36.5); MEAN CORPUSCULAR VOLUME 91.6 fl (80.0-96.0); MONO # 0.5 10^3/uL (0.0-0.8); MONO % 8.6 % (0.0-5.0); NEUTROPHILS # 3.7 10^3/uL (1.8-7.7); PLATELET COUNT, AUTOMATED 192 10^3/uL (150-450); WHITE BLOOD COUNT 5.9 10^3/uL (4.0-10.0)
[2019-01-13 06:45] LABS: INR 2.55
[2019-01-13 06:49] LABS: CREATININE FOR GFR 1.33 MG/DL (0.55-1.30); GLOMERULAR FILTRATION RATE 40.6 (>32); MAGNESIUM LEVEL 1.9 MG/DL (1.8-2.4); POTASSIUM SERUM 4.3 MEQ/L (3.5-5.1)
[2019-01-13] MEDS: NYSTATIN 100,000 UNITS/GM TOPICAL PWD 15 GM TOP SCH ×2 (08:22→22:32)
[2019-01-13] MEDS: TORSEMIDE 20 MG TAB PO SCH (08:23)
[2019-01-13] MEDS: OMEPRAZOLE 20 MG CAP PO SCH (08:23)
[2019-01-13] MEDS: EUCERIN 120GM CREAM TOP SCH (08:23)
[2019-01-13] MEDS: POTASSIUM CHLORIDE 10 MEQ SR TABLET PO SCH ×2 (08:23→22:32)
[2019-01-13] MEDS: HumaLOG INSULIN (NovoLOG) PER UNIT SC SCH ×4 (08:24→21:00)
[2019-01-13] MEDS ORDERED: TORS20TA2 PO (10:28)
--- NOTE | 2019-01-13 12:22 | DS.PDOC ---
Discharge Summary General Date of Admission Jan 05, 2019 at 16:43 Date of Discharge 01/13/2019 Discharge Summary PROCEDURES PERFORMED DURING STAY: [None]. ADMITTING DIAGNOSES / DISCHARGE DIAGNOSES: Redness / Warmth / Tenderness - possibly 2/2 chronic venous stasis ulcer, less likely 2/2 cellulitis Compensated Diastolic CHF s/p Atypical chest pain - unlikely 2/2 cardiac etiology, possibly 2/2 GI etiology ALCIRA Obestiy Hypothyroidism Atrial fibrillation DVT / PE GERD DVT prophylaxis COMPLICATIONS/CHIEF COMPLAINT: Chest pain and shortness of breath HISTORY OF PRESENT ILLNESS: Patient is an 83-year-old female with a PMHx of DM2, A. fib, Complete HB s/p PM, Hx of DVT / PE, HTN, Pulmonary HTN, Chronic Morbid obesity, ALCIRA, Cor pulmonale, Chronic LE venous stasis ulcer who presented to the ER with complaints of atypical chest pain and cellulitis of both her lower extremities. She was admitted to the hospital service for further evaluation and treatment. HOSPITAL COURSE: Redness / Warmth / Tenderness - possibly 2/2 chronic venous stasis ulcer, less likely 2/2 cellulitis - Clinically appears to be chronic in nature; was this morning do not appear to show any significant change - She remains afebrile and hemodynamically stable - s/p leukocytosis - Procalcitonin has been negative; s/p Cefazolin - c/w Wound care as per recommendations from Dr. Fontana; dressing changes daily - Continue with outpatient follow-up with Dr. 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 ALLERGIES: Please see below. PHYSICAL EXAMINATION ON DISCHARGE: Vitals (See below) General: Lying in bed, no acute distress, comfortable, AAOx3 HEENT: NC, AT CVS: RRR, +S1S2 Lungs: Fair air entry b/l, there does not appear to be any appreciable wheezing, rales or rhonchi Abdomen: Abdomen is soft, remains nontender and nondistended Extremities: Chronic venous stasis ulcers appear unchanged - dressing will be changed today, no significant pitting edema LABORATORY DATA: Please see below. ACTIVITY: [As tolerated]. DIET: Fluid restriction fo 1700 cc DISCHARGE PLAN: Follow-up with Dr. Miguel Ángel [place] within 7 days Remain compliant with treatment plan and medications Return to the ER if you experience any problems DISPOSITION: [facility] [place] DISCHARGE CONDITION: [Stable]. TIME SPENT ON DISCHARGE: Greater than [25] minutes. Vital Signs/I&Os Vital Signs Date Time Temp Pulse Resp B/P (MAP) Pulse Ox O2 Delivery O2 Flow Rate FiO2 01/13/19 06:00 97.3 70 19 153/74 (100) 94 I&O- Last 24 Hours up to 6 AM 01/13/19 06:00 Intake Total 600 ml Output Total 1401 ml Balance -801 ml Laboratory Data Labs 24H Laboratory Tests 2 01/12/19 16:42: Bedside Glucose (Misc Panel) 181H 01/12/19 20:21: Bedside Glucose (Misc Panel) 117H 01/13/19 05:45: Immature Granulocyte % (Auto) 0.3, White Blood Count 5.9, Red Blood Count 3.80L, Hemoglobin 11.1L, Hematocrit 34.8L, Mean Corpuscular Volume 91.6, Mean Corpuscular Hemoglobin 29.2, Mean Corpuscular Hemoglobin Concent 31.9L, Red Cell Distribution Width 15.7H, Platelet Count 192, Neutrophils (%) (Auto) 62.0, L ymphocytes (%) (Auto) 23.7L, Monocytes (%) (Auto) 8.6H, Eosinophils (%) (Auto) 3.9H, Basophils (%) (Auto) 1.5H, Neutrophils # (Auto) 3.7, Lymphocytes # (Auto) 1.4L, Monocytes # (Auto) 0.5, Eosinophils # (Auto) 0.2, Basophils # (Auto) 0.1, Nucleated Red Blood Cells % (auto) 0.0, Prothrombin Time 28.0H, Prothromb Time International Ratio 2.55, Anion Gap 6L, Glomerular Filtration Rate 40.6, Blood Urea Nitrogen 26H, Creatinine 1.33H, Sodium Level 139, Potassium Level 4.3, Chloride Level 102, Carbon Dioxide Level 31, Calcium Level 8.0L, Magnesium Level 1.9 01/13/19 11:25: Bedside Glucose (Misc Panel) 160H CBC/BMP Laboratory Tests 01/13/19 05:45 Red Blood Count 3.80 L, Mean Corpuscular Volume 91.6, Mean Corpuscular Hemoglobin 29.2, Mean Corpuscular Hemoglobin Concent 31.9 L, Red Cell Distribution Width 15.7 H, Neutrophils (%) (Auto) 62.0, Lymphocytes (%) (Auto) 23.7 L, Monocytes (%) (Auto) 8.6 H, Eosinophils (%) (Auto) 3.9 H, Basophils (%) (Auto) 1.5 H, Neutrophils # (Auto) 3.7, Lymphocytes # (Auto) 1.4 L, Monocytes # (Auto) 0.5, Eosinophils # (Auto) 0.2, Basophils # (Auto) 0.1, Calcium Level 8.0 L FSBS Laboratory Tests Test 01/12/19 16:42 01/12/19 20:21 01/13/19 11:25 Range/Units Bedside Glucose (Misc Panel) 181 117 160 83-110 MG/DL Discharge Medications Scheduled Levothyroxine Sodium (Synthroid) 25 Mcg Tab, 25 MCG PO DAILY, (Reported) Omeprazole (Omeprazole) 20 Mg Cap, 20 MG PO DAILY, (Reported) Potassium Chloride (Potassium Chloride ER) 10 Meq Tab, 20 MEQ PO BID, (Reported) Torsemide (Torsemide) 20 Mg Tab, 20 MG PO BID to be given at 0700 hours and 1400 hours Warfarin Sod (Warfarin Sodium) 5 Mg Tab, 5 MG PO DAILY, (Reported) Scheduled PRN (Senna Plus 8.6-50 mg) 1 Tab Tab, 1 TAB PO BID PRN for CONSTIPATION, (Reported) Acetaminophen (Acetaminophen) 500 Mg Tab, 1,000 MG PO Q6H PRN for PAIN, (Reported) Albuterol Sulfate (Albuterol Sulfate) 2.5 Mg/3 Ml Nebu, 2.5 MG INH Q4H PRN for SHORTNESS OF BREATH, (Reported) Allergies Coded Allergies: dirithromycin (Verified Allergy, Intermediate, hives, 01/08/19) Sulfa (Sulfonamide Antibiotics) (Verified Allergy, Unknown, 01/08/19) Penicillins (Verified Adverse Reaction, Intermediate, tachycardia 40 yrs ago, 01/08/19) CAROLINE FOOTE MD Jan 13, 2019 12:22
[2019-01-13 14:00] VITALS: BP 131/62
[2019-01-13] MEDS: WARFARIN SOD 5 MG TAB PO SCH (17:49)
[2019-01-13 22:00] VITALS: BP 171/78
[2019-01-14] MEDS: guaiFENesin SYRUP 200 MG/10 ML UDC PO PRN ×2 (00:28→08:50)
[2019-01-14] MEDS: ALBUTEROL SULFATE 2.5 MG/0.5 ML INH NEB SOLN INH PRN (00:36)
[2019-01-14] MEDS: LEVOTHYROXINE 25MCG TABLET (0.025MG) PO SCH (06:00)
[2019-01-14] MEDS: ACETAMINOPHEN TAB 650MG DOSE (2X325MG) PO PRN (06:05)
[2019-01-14 06:37] LABS: BASO # 0.1 10^3/uL (0.0-0.2); EOS # 0.2 10^3/uL (0.0-0.50); EOS % 4.2 % (0.0-3.0); HEMATOCRIT 37.3 % (36.0-47.0); HEMOGLOBIN 11.6 g/dl (12.0-15.5); LYMPH % 17.7 % (24.0-44.0); MEAN CORPUSCULAR HEMOGLOBIN 28.6 pg (27.0-33.0); MEAN CORPUSCULAR HGB CONC 31.1 g/dl (32.0-36.5); MEAN CORPUSCULAR VOLUME 91.9 fl (80.0-96.0); MONO # 0.5 10^3/uL (0.0-0.8); MONO % 8.5 % (0.0-5.0); NEUTROPHILS # 3.9 10^3/uL (1.8-7.7); NEUTROPHILS % 68.1 % (36.0-66.0); PLATELET COUNT, AUTOMATED 187 10^3/uL (150-450); RED BLOOD COUNT 4.06 10^6/uL (4.00-5.40); WHITE BLOOD COUNT 5.8 10^3/uL (4.0-10.0)
[2019-01-14 06:55] LABS: CALCIUM LEVEL 8.3 MG/DL (8.8-10.2); CREATININE FOR GFR 1.13 MG/DL (0.55-1.30); MAGNESIUM LEVEL 1.9 MG/DL (1.8-2.4); POTASSIUM SERUM 4.4 MEQ/L (3.5-5.1)
[2019-01-14] MEDS: OMEPRAZOLE 20 MG CAP PO SCH (08:45)
[2019-01-14] MEDS: POTASSIUM CHLORIDE 10 MEQ SR TABLET PO SCH ×2 (08:46→20:22)
[2019-01-14] MEDS: TORSEMIDE 20 MG TAB PO SCH (08:46)
[2019-01-14] MEDS: NYSTATIN 100,000 UNITS/GM TOPICAL PWD 15 GM TOP SCH ×2 (08:47→20:57)
[2019-01-14] MEDS: EUCERIN 120GM CREAM TOP SCH (08:47)
[2019-01-14] MEDS: HumaLOG INSULIN (NovoLOG) PER UNIT SC SCH ×4 (08:48→20:57)
[2019-01-14 14:00] VITALS: BP 154/69
--- NOTE | 2019-01-14 14:33 | IPNPDOC ---
Subjective Date Seen The patient was seen on 01/14/19. Subjective Chief Complaint/HPI Patient seen and examined at the bedside. No acute overnight events noted. The patient is awaiting placement as per PFS. Objective Physical Examination General Exam: Positive: Alert, Cooperative, No Acute Distress ENT Exam: Positive: Atraumatic, Mucous membr. moist/pink Neck Exam: Negative: JVD Chest Exam: Positive: Clear to auscultation, Normal air movement Heart Exam: Positive: Rate Normal, Normal S1, Normal S2 Abdomen Exam: Positive: Soft; Negative: Tenderness Extremity Exam: Positive: Other (chronic venous static changes noted in the lower extremities); Negative: Tenderness Psych Exam: Positive: Oriented x 3 Assessment /Plan Plan/VTE VTE Prophylaxis Ordered?: Yes Plan s/p Atypical chest pain - unlikely 2/2 cardiac etiology, possibly 2/2 GI etiology, resolved EKG 01/05: Electronic ventricular pacemaker - similar to 02/10/18 Troponin trend x 3 negative Chronic venous stasis ulcer, less likely 2/2 cellulitis Patient remains afebrile, procalcitonin negative We will cont to monitor Wound care as per recommendations from Dr. Fontana; dressing changes daily Diastolic CHF, compensated ECHO 01/06: Paradoxical septal motion with normal LV wall motion, findings to suggest RV pressure overload, unable to assess LV diastolic function, severe elevation of RVSP Cont Torsemide ALCIRA Non-compliant with CPAP Risks, benefits, and alternative options discussed at length with patient--she has verbalized understanding of the same Obesity complicating medical care Hypothyroidism Levothyroxine Atrial fibrillation Currently not on rate control medications (re: Hx of Complete heart block s/p PM) INR therapeutic c/w full anticoagulation with Coumadin Chronic kidney disease stage III Serum creatinine at baseline Hx of DVT / PE c/w Coumadin GERD Omeprazole DVT prophylaxis On Warfarin Disposition Pending placement as per PFS VS, I&O, 24H, Fishbone Vital Signs/I&O Vital Signs Date Time Temp Pulse Resp B/P (MAP) Pulse Ox O2 Delivery O2 Flow Rate FiO2 01/13/19 22:00 98.6 70 18 171/78 (109) 98 I&O- Last 24 Hours up to 6 AM 01/14/19 06:00 Intake Total 960 ml Output Total 1450 ml Balance -490 ml Laboratory Data 24H LABS Laboratory Tests 2 01/13/19 16:28: Bedside Glucose (Misc Panel) 124H 01/13/19 20:25: Bedside Glucose (Misc Panel) 142H 01/14/19 05:39: Bedside Glucose (Misc Panel) 124H 01/14/19 06:21: Immature Granulocyte % (Auto) 0.5, White Blood Count 5.8, Red Blood Count 4.06, Hemoglobin 11.6L, Hematocrit 37.3, Mean Corpuscular Volume 91.9, Mean Corpuscular Hemoglobin 28.6, Mean Corpuscular Hemoglobin Concent 31.1L, Red Cell Distribution Width 15.4H, Platelet Count 187, Neutrophils (%) (Auto) 68.1H, Lymphocytes (%) (Auto) 17.7L, Monocytes (%) (Auto) 8.5H, Eosinophils (%) (Auto) 4.2H, Basophils (%) (Auto) 1.0, Neutrophils # (Auto) 3.9, Lymphocytes # (Auto) 1.0L, Monocytes # (Auto) 0.5, Eosinophils # (Auto) 0.2, Basophils # (Auto) 0.1, Nucleated Red Blood Cells % (auto) 0.0, Anion Gap 5L, Glomerular Filtration Rate 49.0, Blood Urea Nitrogen 26H, Creatinine 1.13, Sodium Level 139, Potassium Level 4.4, Chloride Level 104, Carbon Dioxide Level 30, Calcium Level 8.3L, Magnesium Level 1.9 CBC/BMP Laboratory Tests 01/14/19 06:21 Red Blood Count 4.06, Mean Corpuscular Volume 91.9, Mean Corpuscular Hemoglobin 28.6, Mean Corpuscular Hemoglobin Concent 31.1 L, Red Cell Distribution Width 15.4 H, Neutrophils (%) (Auto) 68.1 H, Lymphocytes (%) (Auto) 17.7 L, Monocytes (%) (Auto) 8.5 H, Eosinophils (%) (Auto) 4.2 H, Basophils (%) (Auto) 1.0, Neutrophils # (Auto) 3.9, Lymphocytes # (Auto) 1.0 L, Monocytes # (Auto) 0.5, Eosinophils # (Auto) 0.2, Basophils # (Auto) 0.1, Calcium Level 8.3 L GWENDOLYN SPIVEY MD Jan 14, 2019 14:33
[2019-01-14] MEDS: WARFARIN SOD 5 MG TAB PO SCH (17:30)
[2019-01-14 22:00] VITALS: BP 138/64
[2019-01-15] MEDS: LEVOTHYROXINE 25MCG TABLET (0.025MG) PO SCH (05:33)
[2019-01-15 06:00] VITALS: BP 140/70
[2019-01-15 06:07] LABS: BASO # 0.1 10^3/uL (0.0-0.2); BASO % 1.3 % (0.0-1.0); EOS # 0.3 10^3/uL (0.0-0.50); EOS % 4.7 % (0.0-3.0); HEMATOCRIT 38.7 % (36.0-47.0); HEMOGLOBIN 12.2 g/dl (12.0-15.5); LYMPH # 1.3 10^3/uL (1.5-4.5); LYMPH % 23.8 % (24.0-44.0); MEAN CORPUSCULAR HEMOGLOBIN 28.4 pg (27.0-33.0); MEAN CORPUSCULAR HGB CONC 31.5 g/dl (32.0-36.5); MEAN CORPUSCULAR VOLUME 90.2 fl (80.0-96.0); MONO # 0.5 10^3/uL (0.0-0.8); MONO % 9.6 % (0.0-5.0); NEUTROPHILS # 3.3 10^3/uL (1.8-7.7); NEUTROPHILS % 60.2 % (36.0-66.0); PLATELET COUNT, AUTOMATED 192 10^3/uL (150-450); RED BLOOD COUNT 4.29 10^6/uL (4.00-5.40); WHITE BLOOD COUNT 5.5 10^3/uL (4.0-10.0)
[2019-01-15 06:29] LABS: CALCIUM LEVEL 8.4 MG/DL (8.8-10.2); CREATININE FOR GFR 1.05 MG/DL (0.55-1.30); GLOMERULAR FILTRATION RATE 53.3 (>32); MAGNESIUM LEVEL 1.9 MG/DL (1.8-2.4)
[2019-01-15] MEDS: guaiFENesin SYRUP 200 MG/10 ML UDC PO PRN (07:54)
[2019-01-15] MEDS: POTASSIUM CHLORIDE 10 MEQ SR TABLET PO SCH (07:54)
[2019-01-15] MEDS: OMEPRAZOLE 20 MG CAP PO SCH (07:54)
[2019-01-15] MEDS: HumaLOG INSULIN (NovoLOG) PER UNIT SC SCH (07:55)
[2019-01-15] MEDS: ACETAMINOPHEN TAB 650MG DOSE (2X325MG) PO PRN (07:55)
[2019-01-15] MEDS: TORSEMIDE 20 MG TAB PO SCH (07:56)
[2019-01-15] MEDS: NYSTATIN 100,000 UNITS/GM TOPICAL PWD 15 GM TOP SCH (07:56)
[2019-01-15] MEDS: EUCERIN 120GM CREAM TOP SCH (07:56)
--- NOTE | 2019-01-15 17:00 | IPNPDOC ---
Text Note Date of Service The patient was seen on 01/15/19. NOTE Patient's discharge was delayed by 48 hrs due to prior authorization for insur danilo. There have been no acute events noted since previous discharge orders. Please refer to D/C summary from 01/13/19 for information regarding the patient's hospital course. VS,Fishbone, I+O VS, Fishbone, I+O Laboratory Tests 01/15/19 05:22 Red Blood Count 4.29, Mean Corpuscular Volume 90.2, Mean Corpuscular Hemoglobin 28.4, Mean Corpuscular Hemoglobin Concent 31.5 L, Red Cell Distribution Width 15.3 H, Neutrophils (%) (Auto) 60.2, Lymphocytes (%) (Auto) 23.8 L, Monocytes (%) (Auto) 9.6 H, Eosinophils (%) (Auto) 4.7 H, Basophils (%) (Auto) 1.3 H, Ne utrophils # (Auto) 3.3, Lymphocytes # (Auto) 1.3 L, Monocytes # (Auto) 0.5, Eosinophils # (Auto) 0.3, Basophils # (Auto) 0.1, Calcium Level 8.4 L Vital Signs Date Time Temp Pulse Resp B/P (MAP) Pulse Ox O2 Delivery O2 Flow Rate FiO2 01/15/19 06:00 99.2 70 17 140/70 (93) 99 I&O- Last 24 Hours up to 6 AM 01/15/19 06:00 Intake Total 2015 ml Output Total 0 ml Balance 2015 ml GWENDOLYN SPIVEY MD Jan 15, 2019 17:00
== END 2019-01-15 10:32 | DRG 300 ==
LOC: EDBD 10:40 → M ED 10:40 → EDSEX 10:40 → M ED INP 16:43 → M PCU 20:53 → M MSPAV 01-06 16:09
PROVIDERS: ADMIT Internal Medicine; ATTEND Internal Medicine
DX: I83.008 Varicose veins of unspecified lower extremity with ulcer other part of lower leg (principal); I50.32 Chronic diastolic (congestive) heart failure; Z68.41 Body mass index [BMI] 40.0-44.9, adult; R07.89 Other chest pain; K21.9 Gastro-esophageal reflux disease without esophagitis; E66.01 Morbid (severe) obesity due to excess calories; E03.9 Hypothyroidism, unspecified; I48.91 Unspecified atrial fibrillation; G47.33 Obstructive sleep apnea (adult) (pediatric); Z86.711 Personal history of pulmonary embolism; Z86.718 Personal history of other venous thrombosis and embolism; I27.20 Pulmonary hypertension, unspecified; I27.81 Cor pulmonale (chronic); Z91.19 Patient's noncompliance with other medical treatment and regimen; Z88.0 Allergy status to penicillin; Z88.2 Allergy status to sulfonamides; Z79.899 Other long term (current) drug therapy; I87.2 Venous insufficiency (chronic) (peripheral)

== ENCOUNTER → 2019-07-03 | Outpatient (CLI) | payer MEDICARE ==
[~2019-07-03] MED LIST changes: +ACET500T15 PO; -EUCE12CR TOP; +HYDR1CRE95 TOP; -OMEP20CA3 PO; +OMEP20CA4 PO; +POTA1TAB23 PO; -SENN1TAB2 PO; +SENN1TAB40 PO; +TORS20TA2 PO; +WARF-23 PO
--- NOTE | 2019-07-03 16:39 | REP ---
BILATERAL LOWER EXTREMITY DUPLEX DOPPLER ARTERIAL ULTRASOUND: Real-time ultrasound evaluation and duplex Doppler interrogation of bilateral lower extremity arterial system is performed. The study is somewhat limited due to patient body habitus and lymphedema. The vessels are unable to be compressed and KEYANNA could not be performed. Distal right anterior and posterior tibial arteries could not be visualized. There is no compelling evidence for significant stenosis of the visualized bilateral lower extremity arterial systems. Biphasic waveforms are seen in the common femoral arteries bilaterally with monophasic waveforms distal to that level bilaterally. PSV Right Left LOCK ASSEMBLER 125.2 cm/s 109 cm/s Profunda 79.3 cm/s 62.3 cm/s Proximal SFA 149.6 cm/s 145.3 cm/s Mid SFA 174.9 cm/s 133.3 cm/s Distal SFA 129.1 cm/s 122.7 cm/s Popliteal 93.6 cm/s 84.5 cm/s Proximal SKYE 47.0 cm/s 99.1 cm/s TP trunk 93.2 cm/s 59.1 cm/s Proximal WATCH AND CLOCK REPAIRER 26 cm/s 73.2 cm/s Distal WATCH AND CLOCK REPAIRER not visualized 59.7 cm/s Distal SKYE not visualized 86.2 cm/s Electronically Signed by Neri Perez MD 07/03/2019 05:58 P
== END ==
LOC: M RAD 12:09
PROVIDERS: ATTEND Physician Assistant
DX: I87.311 Chronic venous hypertension (idiopathic) with ulcer of right lower extremity (principal); I89.0 Lymphedema, not elsewhere classified; L97.812 Non-pressure chronic ulcer of other part of right lower leg with fat layer exposed

== ENCOUNTER → 2019-07-14 | Outpatient (RCR) | payer BC, MEDICARE | LOC: M PT 06-18 13:54 | PROVIDERS: ATTEND Surgery | DX: Z51.89 Encounter for other specified aftercare (principal); T14.8XXA Other injury of unspecified body region, initial encounter ==

== ENCOUNTER 2019-07-15 12:41 | Outpatient (RCR) | payer MEDICARE ==
[~2019-07-15 12:41] MED LIST changes: +SENN-53 PO; -SENN1TAB40 PO
[2019-08-04] MEDS ORDERED: WARF-60 PO (06:56)
[2019-08-04] MEDS ORDERED: WARF-58 PO (06:56)
[2019-08-04] MEDS ORDERED: TORS20TA2 PO (06:56)
[2019-08-12] MEDS ORDERED: WARF-60 PO (12:58)
[2019-08-12] MEDS ORDERED: LEVO250T12 PO (12:58)
== END 2019-08-14 ==
LOC: M PT 12:41
PROVIDERS: ATTEND Surgery
DX: T14.8XXA Other injury of unspecified body region, initial encounter (principal)

== ENCOUNTER 2019-08-04 03:27 | Inpatient (IN) | payer MEDICARE ==
[~2019-08-04] VITALS: Ht 162.6 cm; Wt 108.7 kg
[2019-08-04 04:06] LABS: ABG BASE EXCESS -3.5 (-2.0-2.0); ABG HCO3 18.2 MEQ/L (22.0-26.0); ABG O2 SATURATION 95.2 % (95.0-99.0); ABG PARTIAL PRESSURE O2 69.8 mmHg (75.0-100.0); ABG STANDARD HCO3 21.5 MEQ/L (22.0-26.0); ABG pH (ARTERIAL) 7.481 UNITS (7.350-7.450)
[2019-08-04 04:08] LABS: BASO # 0.1 10^3/uL (0.0-0.2); BASO % 0.5 % (0.0-1.0); EOS % 0.1 % (0.0-3.0); HEMATOCRIT 40.4 % (36.0-47.0); HEMOGLOBIN 12.8 g/dl (12.0-15.5); LYMPH % 5.4 % (24.0-44.0); MEAN CORPUSCULAR HEMOGLOBIN 28.8 pg (27.0-33.0); MEAN CORPUSCULAR HGB CONC 31.7 g/dl (32.0-36.5); MONO # 0.7 10^3/uL (0.0-0.8); MONO % 3.9 % (0.0-5.0); NEUTROPHILS # 17.1 10^3/uL (1.5-8.5); NEUTROPHILS % 89.6 % (36.0-66.0); PLATELET COUNT, AUTOMATED 231 10^3/uL (150-450); RED BLOOD COUNT 4.44 10^6/uL (4.00-5.40); WHITE BLOOD COUNT 19.1 10^3/uL (4.0-10.0)
[2019-08-04 04:47] LABS: ALBUMIN 2.6 GM/DL (3.2-5.2); BILIRUBIN,DIRECT 0.2 MG/DL (0.0-0.2); MB/CK RELATIVE INDEX 1.01 (< OR =4); THYROID STIMULATING HORMONE 2.38 uIU/ML (0.358-3.740); THYROXINE (T4) 10.8 UG/DL (4.5-12.0); TROPONIN I 0.03 NG/ML (< 0.10)
[2019-08-04] MEDS ORDERED: ISOVUE-370 76% 100ML VIAL (Q9967) As Ordered ONE (05:33)
[2019-08-04 05:42] LABS: INR 2.87
[2019-08-04 05:43] LABS: PARTIAL THROMBOPLASTIN TIME 46.2 SECONDS (25.0-38.4)
--- NOTE | 2019-08-04 06:07 | REPVR ---
PROCEDURE INFORMATION: Exam: CT Angiography Chest With Contrast Exam date and time: 08/04/2019 5:39 AM Clinical history: 84 years old, female; Chest pain; Additional info: SOB TECHNIQUE: Imaging protocol: Computed tomographic angiography of the chest with intravenous contrast. 3D rendering: MIP reconstructed images were created and reviewed. Radiation optimization: All CT scans at this facility use at least one of these dose optimization techniques: automated exposure control; mA and/or kV adjustment per patient size (includes targeted exams where dose is matched to clinical indication); or iterative reconstruction. Contrast material: ISO 370; Contrast volume: 75 ml; Contrast route: IV; COMPARISON: CT ANGIO CHEST 01/05/2019 1:14 PM FINDINGS: Tubes, catheters and devices: Pacemaker in position from the left. Pulmonary arteries: The main pulmonary artery measures 28 mm. No pulmonary embolism is identified. Aorta: The ascending thoracic aorta measures 26 mm. No gross or obvious aortic dissection is identified distal to the mid arch. Artifact and image degradation precludes detailed evaluation of the ascending thoracic aorta. Lungs: Minimal bilateral lower lobe infiltrates or atelectasis. Pleural space: Unremarkable. No pneumothorax. No pleural effusion. Heart: Status post TAVR. The left atrium measures 5.8 cm in its AP dimension. Spleen: Multiple splenic calcifications. Lymph nodes: Unremarkable. No enlarged lymph nodes. Bones/joints: Unremarkable. No acute fracture. Soft tissues: Unremarkable. IMPRESSION: 1. There has been little change from 01/05/2019. No acute interval pulmonary embolism is identified. 2. Minimal bilateral lower lobe infiltrates or atelectasis, increased since the prior study. 3. Old granulomatous disease of the spleen. 4. Cardiomegaly with TAVR and pacemaker. Electronically signed by: Lazarus Bryson On 08/04/2019 06:07:15 AM
[2019-08-04] MEDS ORDERED: FUROSEMIDE 40 MG/4 ML VIAL (J1940) IV ONE (06:30)
[2019-08-04] MEDS ORDERED: WARF-58 PO (06:56)
[2019-08-04] MEDS ORDERED: TORS20TA2 PO (06:56)
[2019-08-04] MEDS ORDERED: WARF-60 PO (06:56)
[2019-08-04] MEDS ORDERED: ACETAMINOPHEN TAB 650MG DOSE (2X325MG) PO PRN (07:15)
[2019-08-04] MEDS ORDERED: SENOKOT S TAB PO PRN (07:30)
[2019-08-04] MEDS: POTASSIUM CHLORIDE 10 MEQ SR TABLET PO SCH ×2 (08:22→21:04)
[2019-08-04] MEDS: LEVOTHYROXINE 25MCG TABLET (0.025MG) PO SCH (08:23)
[2019-08-04] MEDS: OMEPRAZOLE 20 MG CAP PO SCH (08:23)
[2019-08-04] MEDS: TORSEMIDE 20 MG TAB PO SCH (08:24)
[2019-08-04] MEDS ORDERED: CEFEPIME HCL 2 GM in D5W MINI-BAG PLUS 50 ML IV ONE (09:00)
--- NOTE | 2019-08-04 09:48 | REP ---
CHEST, SINGLE VIEW: Single view of the chest is performed. Comparison is 01/05/2019. There is cardiomegaly unchanged. There is pulmonary venous hypertension and mild chronic interstitial prominence which is stable. No consolidating infiltrate is seen. There is calcification of the thoracic aorta. The mediastinal silhouette is unchanged. There is a prosthetic heart valve. There is a left pace maker unchanged. IMPRESSION: Cardiomegaly. Chronic lung findings as above with no acute infiltrate. Electronically Signed by Neri Perez MD 08/05/2019 05:26 P
[2019-08-04] MEDS ORDERED: VANCOMYCIN HCL 1,000 MG, VIAL MATE ADAPTER 1 EACH in D5W 250 ML IV ONE ×3 (10:00→14:00)
[2019-08-04 10:15] VITALS: BP 124/62
[2019-08-04] MEDS ORDERED: FLUBLOK(EGG FREE)(QUAD)INFLUENZA VACC 0.5ML SYRINGE (90682)18YRS&OLDER IM PRN (10:45)
--- NOTE | 2019-08-04 11:56 | HPEPDOC ---
[facility] Medical History & Physical Date of Admission Aug 04, 2019 Date of Service: Aug 04, 2019 History and Physical CHIEF COMPLAINT: Severe weakness HISTORY OF PRESENT ILLNESS: Patient is a 84F with PMH HTN, HLD, Chronic venous stasis with leg wounds, hx DVT/PE, ALCIRA noncompliant cpap, hx complete heart block s/p pacemaker, hx AVR on warfarin, Afib, Hypothyroidism presented to the ER with complaints of worsening severe weakness. She states that she has been coughing for years now which is not new for her but she has been feeling very weak and that she feel that she is fluid overloaded with increase swelling and slight SOB. She denies any other acute complaints apart from that feeling. Denies chest pain or any other complaints. In ER, patient BNP was 3000s, Lactic acid, WBC 19, LA 3.1->5.4. She has no reported abdominal pain. Was given Lasix in ER for treatment of CHF. BP hypotensive initially but MAP was 70 at the time she was seen by myself. PAST MEDICAL HISTORY: Refer to [facility] PAST SURGICAL HISTORY: AVR Pacemaker Appendectomy Cholecystectomy SOCIAL HISTORY: Denies tobacco, alcohol or illicit drug use. FAMILY HISTORY: Father with metastatic cancer of unknown primary ALLERGIES: Please see below. REVIEW OF SYSTEMS: 10 point review of system negative except as stated in HPI HOME MEDICATIONS: Please see below. PHYSICAL EXAMINATION: General: No acute distress, Alert, morbidly obese BMI 42 with limited mobility Eyes: Normal sclera, EOMI, LIZA HENT: Atraumatic, neck supple, moist mucous membranes Cardiovascular: Normal rate. Pulmonary: Minimal crackles in b/l bases. No wheezing noted. Difficult to appreciate breath sounds given body habitus. GI: Soft, nontender, obese Skin: Warm and dry. b/l LE with extensive skin erythema and chronic venous stasis changes with overlying dressing. Neuro: CN grossly intact. Generalized weakness worse in LE. Psych: oriented x 3 LABORATORY DATA: See below. IMAGING: CXR- IMPRESSION: Cardiomegaly. Chronic lung findings as above with no acute infiltrate. CT chest Angio- IMPRESSION: 1. There has been little change from 01/05/2019. No acute interval pulmonary embolism is identified. 2. Minimal bilateral lower lobe infiltrates or atelectasis, increased since the prior study. 3. Old granulomatous disease of the spleen. 4. Cardiomegaly with TAVR and pacemaker. MICROBIOLOGY: Please see below. ASSESSMENT AND PLAN: 1. Sepsis - Initial presentation with hypotension, lactic acidosis 3.1->5.4, and leukocytosis WBC 19.1. - No evidence of PNA or any urinary symptoms suggestive of urinary infection. However, does have chronic LE wounds. - Was not treated for sepsis initially but I think patient should be on empiric treatment until cultures return. - f/u UA, Urine and blood cultures. - Antibiotics started. Fluids not given given her reported feeling SOB and being fluid overloaded. Difficult to tell in LE as it appears to be swelling/erythematous chronically. - BP improving. MAP 70 when seen with SBP 100. - Repeat ECHO. 2. HTN hx? - No medications seen. BP low/borderline. - No medications needed at this time. 3. PAD - Follows with vascular as outpatient. - resume home meds. 4. Chronic venous insufficiency with LE wounds - Wound care consult. - Reportedly at baseline and has been treated for infection previously. - On empiric abx at this time. 5. Hypothyroidism - resume synthroid 6. Afib - resume warfarin. monitor INR. 7. s/p AVR - continue with warfarin. Monitor INR. - Goal 2-3 8. ALCIRA with bipap noncompliant Vital Signs Vital Signs Date Time Temp Pulse Resp B/P (MAP) Pulse Ox O2 Delivery O2 Flow Rate FiO2 08/04/19 10:15 98.0 69 32 124/62 (82) 100 Room Air Laboratory Data Labs 24H Laboratory Tests 2 08/04/19 03:49: POC Glucose (Misc Panel) 169H, POC Sodium (Misc Panel) 140, POC Potassium (Misc Panel) 5.5H, POC Chloride (Misc Panel) 108, POC Total CO2 (Misc Panel) 22.0L, POC Blood Urea Nitrogen (Misc Panel 14, POC Ionized Calcium (Misc Panel) 4.2L, POC Creatinine (Misc Panel) 1.2, POC Hematocrit (Misc Panel) 40.0 08/04/19 03:56: Immature Granulocyte % (Auto) 0.5, Neutrophils (%) (Auto) 89.6H, Lymphocytes (%) (Auto) 5.4L, Monocytes (%) (Auto) 3.9, Eosinophils (%) (Auto) 0.1, Basophils (%) (Auto) 0.5, Neutrophils # (Auto) 17.1H, Lymphocytes # (Auto) 1.0L, Monocytes # (Auto) 0.7, Eosinophils # (Auto) 0.0, Basophils # (Auto) 0.1, Nucleated Red Blood Cells % (auto) 0.0, Lactic Acid Level 3.1*H, Total Bilirubin 1.0, Direct Bilirubin 0.2, Aspartate Amino Transf (AST/SGOT) 42H, Alanine Aminotransferase (ALT/SGPT) 16, Alkaline Phosphatase 111, Total Creatine Kinase 99, Creatine Kinase MB 1.0, Creatine Kinase MB Relative Index 1.01, Troponin I 0.03, LS-Ghm-K-Type Natriuretic Peptide 3185H, Total Protein 7.0, Albumin 2.6L, Albumin/Globulin Ratio 0.59L, Thyroid Stimulating Hormone (TSH) 2.380, Thyroxine (T4) 10.8 08/04/19 04:00: Blood Gas Bicarbonate Standard 21.5L, Arterial Blood pH 7.481H, Arterial Blood Partial Pressure CO2 25.0L, Arterial Blood Partial Pressure O2 69.8L, Arterial Blood Total CO2 19.0L, Arterial Blood HCO3 18.2L, Arterial Blood Base Excess - 3.5L, Arterial Blood Oxygen Saturation 95.2 08/04/19 05:16: Prothrombin Time 30.0H, Prothromb Time International Ratio 2.87, Activated Partial Thromboplast Time 46.2H 08/04/19 08:12: Lactic Acid Followup at 4 Hours 5.4*H CBC/BMP Laboratory Tests 08/04/19 03:56 Microbiology Microbiology 08/04/19 Blood Culture, Received Pending 08/04/19 Respiratory Virus Panel (PCR) ([place]) - Final, Complete 08/04/19 Blood Culture, Received Pending Home Medications Scheduled Levothyroxine Sodium (Synthroid) 25 Mcg Tab, 25 MCG PO DAILY Omeprazole (Omeprazole) 20 Mg Cap, 20 MG PO DAILY Potassium Chloride (Potassium Chloride) 10 Meq Tab, 20 MEQ PO BID Torsemide (Torsemide) 20 Mg Tablet, 20 MG PO DAILY Warfarin Sodium (Warfarin Sodium) 3 Mg Tablet, 3 MG PO 2XWK TAKES ON SUNDAY AND SUNDAY Warfarin Sodium (Warfarin Sodium) 6 Mg Tablet, 6 MG PO 5XW TAKES ON SUNDAY, SUNDAY, SUNDAY, SUNDAY AND SUNDAY. ORDERED DAILY, BUT PATIENT STATES SHE TAKES THE 6MG 5 DAYS A WEEK Scheduled PRN Acetaminophen (Acetaminophen) 500 Mg Tab, 1,000 MG PO Q6H PRN for PAIN Albuterol Sulf (Albuterol Sulfate) 2.5 Mg/3 Ml Nebu, 1 INH INH Q4H PRN for SHORTNESS OF BREATH Sennosides/Docusate Sodium (Senna Plus Tablet) 1 Tab Tab, 1 TAB PO BID PRN for CONSTIPATION Allergies Coded Allergies: dirithromycin (Verified Allergy, Intermediate, hives, 01/08/19) Sulfa (Sulfonamide Antibiotics) (Verified Allergy, Unknown, 01/08/19) Penicillins (Verified Adverse Reaction, Intermediate, tachycardia 40 yrs ago, 01/08/19) A-FIB/CHADSVASC A-FIB History Current/History of A-Fib/PAF?: Yes Current PO Anticoag Therapy: Yes NIKIA BALDWIN MD Aug 04, 2019 11:56
--- NOTE | 2019-08-04 11:59 | PHACANCOPD ---
PHARMACY VANCOMYCIN DOSING Pt Demographics Demographics Patient Age:84 , Weight:111.400 , Gender: female Adjusted Body Weight Date: 08/04/19, Adjusted Body Weight: Kg Events Past 24 Hours Events Past 24 Hours: YES: Elevation in WBC; NO: Dialysis, Diuretic Therapy, Change in CrCl, Fever, Pending Diagnostics, Pending Procedures, Other Vancomycin Vancomycin Target Ranges: 15-20 mcg/ml Vancomycin Load Y/N: Yes Load Dose Date Time Vancomycin Load Dose: 2G Date: 08/04/19 Time: 1300 Vancomycin Dose Date: 08/04/19. Current Vancomycin Dose: Intermittent Dosing?: No Labs Labs Vital Signs Label Value Date Time Patient Temperature 98.0 degrees F 08/04/19 1015 Temperature Source Temporal 08/04/19 1015 Patient Temperature 98.3 degrees F 08/04/19 0438 Temperature Source Oral 08/04/19 0438 Item Value Date Time White Blood Count 19.1 10^3/uL H 08/04/19 0356 POC Creatinine (Misc Panel) 1.2 MG/DL 08/04/19 0349 Lactic Acid Followup at 4 Hours 5.4 MMOL/L *H 08/04/19 0812 Lactic Acid Level 3.1 MMOL/L *H 08/04/19 0356 CK-Lde-G-Type Natriuretic Peptide 3185 PG/ML H 08/04/19 0356 Micro Microbiology 08/04/19 Blood Culture, Received Pending 08/04/19 Respiratory Virus Panel (PCR) ([place]) - Final, Complete 08/04/19 Blood Culture, Received Pending Creatinine Clearance Date:08/04/19. Creatinine Clearance: . Assessment and Plan Maintaining Current Dose?: Yes Reason for dose change: No Dose Change Pharmacist Note Pharmacist Note Date: 08/04/19. Pharmacist note: Pt. is a 84 year old male who was brought in by EMS with SOB/chest pain and increased BLE swelling/edema. He was started on Vanco and Cefepime for empiric sepsis coverage. I have ordered a MRSA PCR to h elp rule out MRSA pneumonia as the cause. WBC are elevated at 19.1. Pt has no fever. I have loaded the patient with Vanco 2G followed by 1500mg IV Q18H. The pt has no Vanco or MRSA hx with us. We will continue to monitor and adjust dose as needed. NENO ACE PHARMACY Aug 04, 2019 11:59
[2019-08-04 12:00] VITALS: BP 140/72
[2019-08-04] MEDS: NYSTATIN CREAM 15 GM TOP SCH ×2 (15:08→21:04)
[2019-08-04 16:00] VITALS: BP 108/53
[2019-08-04] MEDS: WARFARIN SOD 3 MG TAB PO SCH (17:13)
[2019-08-04 18:14] VITALS: BP 127/77
[2019-08-04 20:00] VITALS: BP 112/55
[2019-08-04] MEDS: CEFEPIME HCL 2 GM in D5W MINI-BAG PLUS 50 ML IV SCH (21:05)
--- NOTE | 2019-08-04 21:07 | ECHO ---
DATE OF PROCEDURE: 08/04/2019 DATE OF : 1935 AGE: 84 GENDER: Female HEIGHT: 64 inches WEIGHT: 244 pounds BODY SURFACE AREA: 2.14 meters squared INPATIENT: ICU, room 3203 REFERRING PHYSICIAN: Dr. Benson Bailon INDICATION: Dyspnea. MEASUREMENTS: 2D Measurements: RV: 4.9 cm LV: 4.2 cm Septum: 1.0 cm Posterior wall: 1.0 cm Aortic root: 2.5 cm LA: 4.7 cm LVEF: 50% DOPPLER MEASUREMENTS: AV: 1.24 meters per second LVOT: 1.0 meters per second MV-E: 190 Early mitral deceleration time: 426 milliseconds Mean MV diastolic gradient: 9 mmHg Mitral valve area: 1.07 square centimeters PV: 0.8 meters per second Pulmonary artery acceleration time: 74 milliseconds RVSP: 90 mmHg IVC: 2.8 cm COMMENTS: Underlying atrial fibrillation with consistent ventricular paced rhythm. Paced QRS complexes with left bundle branch block configuration. Technically challenging study in light of the patient's body habitus but diagnostically useful information was still obtained. M-mode and two-dimensional echocardiography was performed with pulsed, continuous wave, color flow and tissue Doppler studies. Normal left ventricular size and wall thickness with paradoxical septal motion related to right ventricular pacing and at least mild impairment of global resting systolic function. Prominently dilated left atrium. Unable to assess LV diastolic function in light of mitral valve disorder and atrial fibrillation. Prominently dilated right heart chambers with right ventricular free wall hypokinesis and Doppler evidence of severe pulmonary hypertension. Prominently dilated right atrium and inferior vena cava with absent respiratory collapse in keeping with a markedly elevated central venous pressure. Appropriate function of a bioprosthetic aortic valve. Normal aortic dimensions. Severe mitral annular calcification with moderate left ventricular inflow tract obstruction and mild mitral insufficiency. Normal appearing tricuspid valve with at least moderate insufficiency. Pacing leads could be visualized traversing right heart structures. No pericardial effusion. This patient's prognosis has been known to be severely impaired dating back to previously dictated echocardiogram December 2018. She has very severe pulmonary hypertension and right heart failure that is not correctable. MTDD
[2019-08-05] VITALS: BP 124/58
[2019-08-05] MEDS: ACETAMINOPHEN TAB 650MG DOSE (2X325MG) PO PRN (01:38)
[2019-08-05 04:00] VITALS: BP 116/56
[2019-08-05 05:41] LABS: HEMOGLOBIN 11.3 g/dl (12.0-15.5); MEAN CORPUSCULAR HEMOGLOBIN 28.3 pg (27.0-33.0); MEAN CORPUSCULAR HGB CONC 31.4 g/dl (32.0-36.5); MEAN CORPUSCULAR VOLUME 90.2 fl (80.0-96.0); PLATELET COUNT, AUTOMATED 153 10^3/uL (150-450); RED BLOOD COUNT 3.99 10^6/uL (4.00-5.40); WHITE BLOOD COUNT 28.1 10^3/uL (4.0-10.0)
[2019-08-05 05:53] LABS: INR 3.82; PROTHROMBIN TIME 37.7 SECONDS (11.8-14.0)
[2019-08-05 05:57] LABS: CREATININE FOR GFR 1.45 MG/DL (0.55-1.30); GLOMERULAR FILTRATION RATE 36.6 (>32); POTASSIUM SERUM 4.9 MEQ/L (3.5-5.1)
[2019-08-05] MEDS: LEVOTHYROXINE 25MCG TABLET (0.025MG) PO SCH (06:03)
[2019-08-05 07:48] LABS: VANCOMYCIN RANDOM 15.8 UG/ML
[2019-08-05 08:00] VITALS: BP 117/56
[2019-08-05] MEDS ORDERED: VANCOMYCIN HCL 1,000 MG, VIAL MATE ADAPTER 1 EACH in D5W 250 ML IV SCH (08:00)
[2019-08-05] MEDS ORDERED: VANCOMYCIN HCL 500 MG in D5W MINI-BAG PLUS 100 ML IV SCH (09:00)
[2019-08-05] MEDS: POTASSIUM CHLORIDE 10 MEQ SR TABLET PO SCH ×2 (09:08→20:58)
[2019-08-05] MEDS: TORSEMIDE 20 MG TAB PO SCH (09:08)
[2019-08-05] MEDS: OMEPRAZOLE 20 MG CAP PO SCH (09:09)
[2019-08-05] MEDS: NYSTATIN CREAM 15 GM TOP SCH ×2 (09:09→20:56)
[2019-08-05] MEDS: CEFEPIME HCL 2 GM in D5W MINI-BAG PLUS 50 ML IV SCH ×2 (09:10→21:00)
[2019-08-05] MEDS: WARFARIN SOD 3 MG TAB PO SCH (09:15)
--- NOTE | 2019-08-05 09:56 | ECGEPIP ---
[facility] [place] - ED Test Date: 2019-08-04 Pat Name: NEISHA DE SANTIAGO Department: Room: [place] [address] Gender: Female Miller First: STEPHANIE : 1935 Requested By: BORA Meza Order Number: [id number] Reading MD: Bridget Junior Measurements Intervals [place] Rate: 69 P: AL: 0 QRS: -73 QRSD: 157 T: 73 QT: 435 QTc: 468 Interpretive Statements ELECTRONIC VENTRICULAR PACEMAKER ABNORMAL RHYTHM ECG SIMILAR 01/05/19 Electronically Signed on 08-05-2019 9:56:29 EDT by Bridget Junior
[2019-08-05] MEDS: VANCOMYCIN HCL 500 MG in D5W MINI-BAG PLUS 100 ML IV SCH (11:46)
[2019-08-05 12:00] VITALS: BP 115/63
[2019-08-05] MEDS: VANCOMYCIN HCL 1,000 MG, VIAL MATE ADAPTER 1 EACH in D5W 250 ML IV SCH (12:52)
--- NOTE | 2019-08-05 13:53 | PHACANCOPD ---
PHARMACY VANCOMYCIN DOSING Pt Demographics Demographics Patient Age:84 , Weight:109.000 , Gender: female Adjusted Body Weight Date: 08/04/19, Adjusted Body Weight: Kg Vancomycin Vancomycin Target Ranges: 15-20 mcg/ml Vancomycin Load Y/N: Yes Load Dose Date Time Vancomycin Load Dose: 2G Date: 08/04/19 Time: 1300 Vancomycin Dose Date: 08/04/19. Current Vancomycin Dose: Intermittent Dosing?: No Labs Micro Microbiology 08/04/19 Urine Culture, Received Pending 08/04/19 Blood Culture - Preliminary, Resulted 08/04/19 Respiratory Virus Panel (PCR) ([place]) - Final, Complete 08/04/19 Blood Culture - Preliminary, Resulted Creatinine Clearance Date:08/04/19. Creatinine Clearance: . Assessment and Plan Maintaining Current Dose?: No Reason for dose change: Change in serum Cr Pharmacist Note Pharmacist Note Date: 08/04/19. Pharmacist note: Pt. is a 84 year old male who was brought in by EMS with SOB/chest pain and increased BLE swelling/edema. He was started on Vanco and Cefepime for empiric sepsis coverage. I have ordered a MRSA PCR to help rule out MRSA pneumonia as the cause. WBC are elevated at 19.1. Pt has no fever. I have loaded the patient with Vanco 2G followed by 1500mg IV Q18H. The pt has no Vanco or MRSA hx with us. We will continue to monitor and adjust dose as needed. DATE 08/05/19: SCr today was 1.45, up from 1.2. Obtained a random at 0500 of 15.8 which gives an estimated trough of 14.1 after the initial 2g load. Due to decline in renal function I changed dose to 1500mg IV vancomycin q24h to start at 11am. I scheduled a trough tomorrow 08/06 @1000. I will continue to monitor this patient and adjust dose as needed. CAROLINA JORDAN PHARMACY Aug 05, 2019 13:53
--- NOTE | 2019-08-05 14:43 | IPNPDOC ---
Date Seen The patient was seen on 08/05/19. Progress Note SUBJECTIVE: Patient appeared clinical well and reports no current complaints. However, she stated that she had severe dysuria last night but had gotten better. T 100.9 overnight. WBC 19->28 today. Lactic acidosis resolved. BP has been stable. MAP 70-80s OBJECTIVE General: No acute distress, Alert, morbidly obese BMI 42 with limited mobility Eyes: Normal sclera, EOMI, LIZA HENT: Atraumatic, neck supple, moist mucous membranes Cardiovascular: Normal rate. Pulmonary: Minimal crackles in b/l bases. No wheezing noted. Difficult to appreciate breath sounds given body habitus. GI: Soft, nontender, obese Skin: Warm and dry. b/l LE with extensive skin erythema and chronic venous stasis changes with overlying dressing. Neuro: CN grossly intact. Generalized weakness worse in LE. Psych: oriented x 3 IMAGING: CXR- IMPRESSION: Cardiomegaly. Chronic lung findings as above with no acute infiltrate. CT chest Angio- IMPRESSION: 1. There has been little change from 01/05/2019. No acute interval pulmonary embolism is identified. 2. Minimal bilateral lower lobe infiltrates or atelectasis, increased since the prior study. 3. Old granulomatous disease of the spleen. 4. Cardiomegaly with TAVR and pacemaker. MICROBIOLOGY: Please see below. ASSESSMENT AND PLAN: 1. Sepsis - Initial presentation with hypotension, lactic acidosis 3.1->5.4, and leukocytosis WBC 19.1. - No evidence of PNA but developed dysuria that had improved. - UA + LE and WBCs, f/u Urine and blood cultures. - Broad spectrum Antibiotics started. Fluids not given given her reported feeling SOB and being fluid overloaded. Difficult to tell in LE as it appears to be swelling/erythematous chronically. - BP now stable, initially hypotensive. - Repeat ECHO noted. Patient with severe pulmonary HTN and R. sided heart failure. 2. HTN hx? - No medications seen. BP low/borderline. - No medications needed at this time. 3. PAD - Follows with vascular as outpatient. - resume home meds. 4. Chronic venous insufficiency with LE wounds - Wound care consult. - Reportedly at baseline and has been treated for infection previously. - On empiric abx at this time. 5. Hypothyroidism - resume synthroid 6. Afib - resume warfarin. monitor INR. Holding today's dose given supratheurapeutic INR. 7. s/p AVR - continue with warfarin. Monitor INR. Holding today's dose given supratheurapeutic INR. - Goal 2-3 8. ALCIRA with bipap noncompliant VS, I&O, 24H, Fishbone Vital Signs/I&O Vital Signs Date Time Temp Pulse Resp B/P (MAP) Pulse Ox O2 Delivery O2 Flow Rate FiO2 08/05/19 12:00 98.4 70 20 115/63 (80) 92 08/05/19 04:00 Nasal Cannula 2.0 I&O- Last 24 Hours up to 6 AM 08/05/19 06:00 Intake Total 2030 ml Output Total 900 ml Balance 1130 ml Laboratory Data 24H LABS Laboratory Tests 2 08/04/19 18:40: Lactic Acid Level 3.7*H 08/04/19 22:45: Lactic Acid Level 3.4*H 08/05/19 05:20: Nucleated Red Blood Cells % (auto) 0.0, Prothrombin Time 37.7H, Prothromb Time International Ratio 3.82, Anion Gap 9, Glomerular Filtration Rate 36.6, Lactic Acid Followup at 4 Hours 1.8, Calcium Level 8.0L, Random Vancomycin Level 15.8 CBC/BMP Laboratory Tests 08/05/19 05:20 Microbiology Microbiology 08/04/19 Urine Culture, Received Pending 08/04/19 Blood Culture - Preliminary, Resulted 08/04/19 Respiratory Virus Panel (PCR) ([place]) - Final, Complete 08/04/19 Blood Culture - Preliminary, Resulted NIKIA BALDWIN MD Aug 05, 2019 14:43
[2019-08-05 15:29] LABS: BASO # 0.2 10^3/uL (0.0-0.2); BASO % 0.6 % (0.0-1.0); EOS # 0.1 10^3/uL (0.0-0.5); EOS % 0.2 % (0.0-3.0); HEMATOCRIT 39.1 % (36.0-47.0); HEMOGLOBIN 12.1 g/dl (12.0-15.5); LYMPH # 1.4 10^3/uL (1.5-5.0); LYMPH % 5.3 % (24.0-44.0); MEAN CORPUSCULAR HEMOGLOBIN 28.3 pg (27.0-33.0); MEAN CORPUSCULAR HGB CONC 30.9 g/dl (32.0-36.5); MEAN CORPUSCULAR VOLUME 91.4 fl (80.0-96.0); NEUTROPHILS # 22.6 10^3/uL (1.5-8.5); NEUTROPHILS % 89.3 % (36.0-66.0); PLATELET COUNT, AUTOMATED 155 10^3/uL (150-450); RED BLOOD COUNT 4.28 10^6/uL (4.00-5.40); WHITE BLOOD COUNT 25.4 10^3/uL (4.0-10.0)
[2019-08-05 16:00] VITALS: BP 128/65
[2019-08-05 20:00] VITALS: BP 117/74
[2019-08-05] MEDS: ALBUTEROL SULFATE 2.5 MG/0.5 ML INH NEB SOLN INH PRN (23:00)
[2019-08-06] VITALS (7 sets, daily range): BP systolic 105–136; BP diastolic 53–61
[2019-08-06] MEDS: ALBUTEROL SULFATE 2.5 MG/0.5 ML INH NEB SOLN INH PRN ×2 (03:58→21:13)
[2019-08-06] MEDS: LEVOTHYROXINE 25MCG TABLET (0.025MG) PO SCH (05:28)
[2019-08-06 05:40] LABS: HEMATOCRIT 36.1 % (36.0-47.0); HEMOGLOBIN 11.3 g/dl (12.0-15.5); MEAN CORPUSCULAR HEMOGLOBIN 28.2 pg (27.0-33.0); MEAN CORPUSCULAR HGB CONC 31.3 g/dl (32.0-36.5); PLATELET COUNT, AUTOMATED 157 10^3/uL (150-450); RED BLOOD COUNT 4.01 10^6/uL (4.00-5.40); WHITE BLOOD COUNT 16.6 10^3/uL (4.0-10.0)
[2019-08-06 05:51] LABS: INR 2.9; PROTHROMBIN TIME 30.2 SECONDS (11.8-14.0)
[2019-08-06 06:06] LABS: CREATININE FOR GFR 1.49 MG/DL (0.55-1.30); GLOMERULAR FILTRATION RATE 35.5 (>32); POTASSIUM SERUM 4.6 MEQ/L (3.5-5.1)
[2019-08-06] MEDS: TORSEMIDE 20 MG TAB PO SCH (09:17)
[2019-08-06] MEDS: CEFEPIME HCL 2 GM in D5W MINI-BAG PLUS 50 ML IV SCH ×2 (09:17→21:42)
[2019-08-06] MEDS: NYSTATIN CREAM 15 GM TOP SCH ×2 (09:17→21:42)
[2019-08-06] MEDS: OMEPRAZOLE 20 MG CAP PO SCH (09:17)
[2019-08-06] MEDS: POTASSIUM CHLORIDE 10 MEQ SR TABLET PO SCH ×2 (09:17→21:41)
--- NOTE | 2019-08-06 10:17 | IPNPDOC ---
Date Seen The patient was seen on 08/06/19. Progress Note SUBJECTIVE: Patient reports a persistent ongoing cough but otherwise has no complaints. Concern for swallowing yesterday due to cough, bedside swallow eval was placed. She reports no other complaints and state that she feels well otherwise. WBC 25->16. BP has been stable. Blood culture + Pseudomonas x 1. OBJECTIVE General: No acute distress, Alert, morbidly obese BMI 42 with limited mobility Eyes: Normal sclera, EOMI, LIZA HENT: Atraumatic, neck supple, moist mucous membranes Cardiovascular: Normal rate. Pulmonary: Minimal crackles in b/l bases. No wheezing noted. Difficult to appreciate breath sounds given body habitus. GI: Soft, nontender, obese Skin: Warm and dry. b/l LE with extensive skin erythema and chronic venous stasis changes with overlying dressing. Neuro: CN grossly intact. Generalized weakness worse in LE. Psych: oriented x 3 IMAGING: CXR- IMPRESSION: Cardiomegaly. Chronic lung findings as above with no acute infiltrate. CT chest Angio- IMPRESSION: 1. There has been little change from 01/05/2019. No acute interval pulmonary embolism is identified. 2. Minimal bilateral lower lobe infiltrates or atelectasis, increased since the prior study. 3. Old granulomatous disease of the spleen. 4. Cardiomegaly with TAVR and pacemaker. MICROBIOLOGY: Please see below. ASSESSMENT AND PLAN: 1. Sepsis - 2/2 UTI and bacteremia - Suspect LE wound although it is primarily erythematous but no active open wound noted at this time. - Initial presentation with hypotension, lactic acidosis 3.1->5.4, and leukocytosis WBC 19.1. - No evidence of PNA but developed dysuria that had improved. - Blood culture + Pseudomonas x1. f/u 2nd culture. Urine culture + strep - Broad spectrum Antibiotics started. - BP now stable, initially hypotensive. - Repeat ECHO noted. Patient with severe pulmonary HTN and R. sided heart failure. 2. HTN hx? - No medications seen. - No medications needed at this time. 3. PAD - Follows with vascular as outpatient. - resume home meds. 4. Chronic venous insufficiency with LE wounds - Wound care consult. - Reportedly at baseline and has been treated for infection previously. - On empiric abx at this time. 5. Hypothyroidism - resume synthroid 6. Afib - resume warfarin. monitor INR. 7. s/p AVR - continue with warfarin. Monitor INR. - Goal 2-3 8. ALCIRA with bipap noncompliant VS, I&O, 24H, Fishbone Vital Signs/I&O Vital Signs Date Time Temp Pulse Resp B/P (MAP) Pulse Ox O2 Delivery O2 Flow Rate FiO2 08/06/19 08:00 98.5 70 18 118/55 (76) 95 Nasal Cannula 1.0 I&O- Last 24 Hours up to 6 AM 08/06/19 05:59 Intake Total 1500 ml Output Total 1450 ml Balance 50 ml Laboratory Data 24H LABS Laboratory Tests 2 08/05/19 15:22: Immature Granulocyte % (Auto) 0.6, Neutrophils (%) (Auto) 89.3H, Lymphocytes (%) (Auto) 5.3L, Monocytes (%) (Auto) 4.0, Eosinophils (%) (Auto) 0.2, Basophils (%) (Auto) 0.6, Neutrophils # (Auto) 22.6H, Lymphocytes # (Auto) 1.4L, Monocytes # (Auto) 1.0H, Eosinophils # (Auto) 0.1, Basophils # (Auto) 0.2, Nucleated Red Blood Cells % (auto) 0.0 08/06/19 05:01: Nucleated Red Blood Cells % (auto) 0.0, Prothrombin Time 30.2H, Prothromb Time International Ratio 2.90, Anion Gap 6L, Glomerular Filtration Rate 35.5, Calcium Level 8.0L 08/06/19 09:55: CBC/BMP Laboratory Tests 08/05/19 15:22 08/06/19 05:01 Microbiology Microbiology 08/04/19 Urine Culture - Final, Complete Streptococcus Sanguinis 08/04/19 Blood Culture - Preliminary, Resulted 08/04/19 Respiratory Virus Panel (PCR) ([facility]) - Final, Complete 08/04/19 Blood Culture - Final, Complete Pseudomonas Aeruginosa NIKIA BALDWIN MD Aug 06, 2019 10:17
[2019-08-06] MEDS: VANCOMYCIN HCL 500 MG in D5W MINI-BAG PLUS 100 ML IV SCH (10:28)
[2019-08-06] MEDS: BENZONATATE 100 MG CAP PO PRN ×2 (10:28→21:41)
[2019-08-06] MEDS: VANCOMYCIN HCL 1,000 MG, VIAL MATE ADAPTER 1 EACH in D5W 250 ML IV SCH (11:40)
[2019-08-06] MEDS ORDERED: SLF 3 ML SYR IV PRN (11:45)
[2019-08-06] MEDS: SLF 3 ML SYR IV SCH ×2 (14:12→21:43)
[2019-08-06] MEDS: WARFARIN SOD 3 MG TAB PO SCH (17:40)
[2019-08-06] MEDS: ACETAMINOPHEN TAB 650MG DOSE (2X325MG) PO PRN (21:43)
[2019-08-06] MEDS: ALBUTEROL SULFATE 2.5 MG/0.5 ML INH NEB SOLN INH SCH (23:26)
[2019-08-07] MEDS: guaiFENesin DM LIQ 10ML UD PO PRN (00:25)
[2019-08-07] MEDS: ALBUTEROL SULFATE 2.5 MG/0.5 ML INH NEB SOLN INH SCH ×6 (02:30→23:33)
[2019-08-07 04:00] VITALS: BP 129/60
[2019-08-07] MEDS ORDERED: VANCOMYCIN HCL 500 MG in D5W MINI-BAG PLUS 100 ML IV SCH (05:00)
[2019-08-07 05:37] LABS: HEMATOCRIT 34.3 % (36.0-47.0); HEMOGLOBIN 10.9 g/dl (12.0-15.5); MEAN CORPUSCULAR HEMOGLOBIN 28.2 pg (27.0-33.0); MEAN CORPUSCULAR HGB CONC 31.8 g/dl (32.0-36.5); MEAN CORPUSCULAR VOLUME 88.9 fl (80.0-96.0); PLATELET COUNT, AUTOMATED 159 10^3/uL (150-450); RED BLOOD COUNT 3.86 10^6/uL (4.00-5.40); WHITE BLOOD COUNT 11.1 10^3/uL (4.0-10.0)
[2019-08-07 05:45] LABS: INR 2.63
[2019-08-07] MEDS: LEVOTHYROXINE 25MCG TABLET (0.025MG) PO SCH (05:52)
[2019-08-07] MEDS: SLF 3 ML SYR IV SCH ×3 (05:53→22:00)
[2019-08-07] MEDS ORDERED: VANCOMYCIN HCL 1,000 MG, VIAL MATE ADAPTER 1 EACH in D5W 250 ML IV SCH (06:00)
[2019-08-07 06:01] LABS: CALCIUM LEVEL 7.7 MG/DL (8.8-10.2); CREATININE FOR GFR 1.45 MG/DL (0.55-1.30); GLOMERULAR FILTRATION RATE 36.6 (>32); POTASSIUM SERUM 3.8 MEQ/L (3.5-5.1)
[2019-08-07 08:00] VITALS: BP 131/62
[2019-08-07] MEDS: TORSEMIDE 20 MG TAB PO SCH (09:10)
[2019-08-07] MEDS: OMEPRAZOLE 20 MG CAP PO SCH (09:10)
[2019-08-07] MEDS: CEFEPIME HCL 2 GM in D5W MINI-BAG PLUS 50 ML IV SCH ×2 (09:10→21:59)
[2019-08-07] MEDS: POTASSIUM CHLORIDE 10 MEQ SR TABLET PO SCH ×2 (09:10→21:58)
[2019-08-07] MEDS: NYSTATIN CREAM 15 GM TOP SCH ×2 (09:11→21:58)
[2019-08-07 12:00] VITALS: BP 133/89
[2019-08-07] MEDS ORDERED: VARIBAR NECTAR 40% w/v 240ML SUSP BTL As Ordered ONE (13:19)
[2019-08-07] MEDS ORDERED: VARIBAR PUDDING 40% w/v 230ML TUBE As Ordered ONE (13:19)
[2019-08-07] MEDS ORDERED: BARIUM SULFATE 700 MG TABLET (E-Z-DISK) As Ordered ONE (13:20)
[2019-08-07] MEDS ORDERED: E-Z-GAS II EFFERVESCENT PACKET (SODIUM BICARB./CITRIC ACID/SIMETHICONE) As Ordered ONE (13:20)
[2019-08-07] MEDS ORDERED: E-Z-PAQUE 96% w/w SUSP 176GM BTL As Ordered ONE (13:21)
[2019-08-07 16:00] VITALS: BP 140/65
[2019-08-07] MEDS: WARFARIN SOD 3 MG TAB PO SCH (16:29)
--- NOTE | 2019-08-07 17:17 | IPNPDOC ---
Date Seen The patient was seen on 08/07/19. Progress Note SUBJECTIVE: Patient reports not feeling so well, cough persistent. WBC 16->11. Blood culture + Pseudomonas x 2. OBJECTIVE General: No acute distress, Alert, morbidly obese BMI 42 with limited mobility Eyes: Normal sclera, EOMI, LIZA HENT: Atraumatic, neck supple, moist mucous membranes Cardiovascular: Normal rate. Pulmonary: Minimal crackles in b/l bases. No wheezing noted. Difficult to appreciate breath sounds given body habitus. GI: Soft, nontender, obese Skin: Warm and dry. b/l LE with extensive skin erythema and chronic venous stasis changes with overlying dressing, no open wound noted underneath. Neuro: CN grossly intact. Generalized weakness worse in LE. Psych: oriented x 3 IMAGING: CXR- IMPRESSION: Cardiomegaly. Chronic lung findings as above with no acute infiltrate. CT chest Angio- IMPRESSION: 1. There has been little change from 01/05/2019. No acute interval pulmonary embolism is identified. 2. Minimal bilateral lower lobe infiltrates or atelectasis, increased since the prior study. 3. Old granulomatous disease of the spleen. 4. Cardiomegaly with TAVR and pacemaker. MICROBIOLOGY: Please see below. ASSESSMENT AND PLAN: 1. Sepsis - 2/2 UTI and Pseudomonas bacteremia - Suspect LE wound although it is primarily erythematous but no active open wound noted at this time. - Initial presentation with hypotension, lactic acidosis 3.1->5.4, and leukocytosis WBC 19.1. - No evidence of PNA but developed dysuria that had improved. - Blood culture + Pseudomonas x2. Urine culture + strep - c/w cefepime. ID consulted. - Repeat ECHO noted. Patient with severe pulmonary HTN and R. sided heart failure. 2. HTN hx? - No medications seen. - No medications needed at this time. 3. PAD - Follows with vascular as outpatient. - resume home meds. 4. Chronic venous insufficiency with LE wounds - Wound care consult. - Reportedly at baseline and has been treated for infection previously. - On empiric abx at this time. 5. Hypothyroidism - resume synthroid 6. Afib - resume warfarin. monitor INR. 7. s/p AVR - continue with warfarin. Monitor INR. - Goal 2-3 8. ALCIRA with bipap noncompliant Code status: Full code VS, I&O, 24H, Fishbone Vital Signs/I&O Vital Signs Date Time Temp Pulse Resp B/P (MAP) Pulse Ox O2 Delivery O2 Flow Rate FiO2 08/07/19 16:00 98.6 69 18 140/65 (90) 96 Room Air 08/06/19 20:00 1.0 I&O- Last 24 Hours up to 6 AM 08/07/19 06:00 Intake Total 810 ml Output Total 900 ml Balance -90 ml Laboratory Data 24H LABS Laboratory Tests 2 08/07/19 05:10: Nucleated Red Blood Cells % (auto) 0.0, Prothrombin Time 28.0H, Prothromb Time International Ratio 2.63, Anion Gap 7L, Glomerular Filtration Rate 36.6, Calcium Level 7.7L CBC/BMP Laboratory Tests 08/07/19 05:10 Microbiology Microbiology 08/04/19 Urine Culture - Final, Complete Streptococcus Sanguinis 08/04/19 Blood Culture - Final, Complete Pseudomonas Aeruginosa 08/04/19 Respiratory Virus Panel (PCR) ([facility]) - Final, Complete 08/04/19 Blood Culture - Final, Complete Pseudomonas Aeruginosa NIKIA BALDWIN MD Aug 07, 2019 17:17
--- NOTE | 2019-08-07 18:57 | CR ---
DATE OF CONSULTATION: 08/07/2019 INFECTIOUS DISEASE CONSULTATION Asked to consult by hospitalist service for evaluation of Pseudomonas bacteremia. HISTORY OF PRESENT ILLNESS: Mrs. Cuenca is an 84-year-old female who is non-ambulatory with morbid obesity and bilateral lower extremity massive lymphedema and peripheral vascular disease. The patient goes to the wound clinic weekly and gets debridement of her venous ulcers and compression at Dr. Fontana's office, and she has [facility] who does her dressing the other 2 days of the week. She lives alone, and is for the most part wheelchair dependent. She presented to the emergency room with complaints of generalized weakness. She had a low grade temperature of 100.9 and leukocytosis. The patient had two sets of blood cultures which were positive for Pseudomonas. Urine culture had a different pathogen Aeromonas. The patient did complain of dysuria and back pain. The last office visit at the wound clinic, she did not have debridement of her wounds as they were not open. She does have dry skin. She also follows up with Dr. Omer and her appointment was on 08/11/2019. Her past medical history is significant for chronic sinusitis, asthma, chronic obstructive pulmonary disease (COPD), sleep apnea, coronary artery disease, atrial fibrillation, congestive heart failure, right-sided, with pulmonary hypertension, deep vein thrombosis (DVT), hypertension, type 2 diabetes, diabetic neuropathy and osteoarthritis. ALLERGIES: DYNABAC, VIBRAMYCIN, CEFTIN, GRASS, TREES, SAND. SURGICAL HISTORY: Appendectomy in 1955, cholecystectomy in 1967, dilation and curettage (D and C) 1970, aortic valve replacement in 2013 and pacemaker in 2016. FAMILY HISTORY: Father of malignancy. SOCIAL HISTORY: She lives alone. She has a sister who is her healthcare proxy. She does not smoke or drink. REVIEW OF SYSTEMS: She had no chest pain or palpitations, but she has chronic shortness of breath and cough. She has no nausea, vomiting or diarrhea. She denied any headache. She has a cough and shortness of breath which were at baseline. LABORATORY DATA: On admission, her white count was 28.1, today it was 11.1, hemoglobin 10.9, hematocrit 34.3, platelets 159. Sodium 137, potassium 3.8, chloride 105, bicarbonate 25, BUN 31, creatinine 1.45, glucose 177, calcium 7.7, lactic acid was 3.4. Blood cultures on 08/04/2019, two sets by an hour and half, were both positive for Pseudomonas aeruginosa sensitive to levofloxacin. Respiratory panel was negative and urine culture had Streptococcus sanguinis. Urinalysis only had 8 white cells and 4 red cells. Vancomycin trough is 10.5 on 08/06/2019. Methicillin-resistant Staphylococcus aureus (MRSA) screen was not detected. MEDICATIONS: Albuterol nebs, dextromethorphan 10 mL every 6 hours as needed, warfarin 3 mg daily, Tessalon 200 mg by mouth twice a day as needed, cefepime 2 grams IV every 12 hours, vancomycin 1.5 grams IV every 18 hours, Tylenol as needed, Nystatin to groin twice a day, omeprazole 20 mg daily, potassium 20 mEq by mouth twice a day, Demadex 20 mg by mouth daily, Senokot one tablet by mouth twice a day as needed, and levothyroxine 25 mcg daily. On physical exam, morbidly obese female in no acute distress, alert and oriented times three, is a good historian. Maximum temperature (T max) on 08/04/2019 was 100.9, but she has been afebrile since then. Temperature is 98.6, pulse 69, respirations 18, blood pressure 140/65, oxygen saturation (O2 sat) 96% on room air. Heart: Normal S1, S2. Systolic ejection murmur 2/6. Lungs: Fair expiratory wheezes bilaterally and mild crackles at bases. Abdomen: Morbidly obese, soft, nontender. Groin area has bilateral skin maceration with erythema. Extremities with extensive edema, warm, +2 pitting, chronic venous stasis changes but no open ulcers. There is a dry scab on the right lateral calf. Both legs are warm to touch. Neurologic: Exam intact. The patient is able to move both lower extremities, and she is alert, oriented. CT chest showed no acute pulmonary embolism. Minimal bilateral lower lobe infiltrates or atelectasis, and old granulomatous disease of the spleen. Cardiomegaly with aortic valve replacement and pacemaker. IMPRESSION: This is a morbidly obese female with bilateral lower extremity venous stasis changes who follows up at the wound clinic for venous ulcers. Currently there is no open ulceration. She presented with Pseudomonas bacteremia with some nonspecific urinary symptoms. She stated she had dysuria and low back pain, but urinalysis was not consistent with an infection and urine culture had a different pathogen. The patient has received IV vancomycin and cefepime with improvement. White count is down to 11. The patient feels better and she is afebrile. The source of Pseudomonas is not clear to me. I am not sure this urinary origin versus cellulitis of lower extremities. Does not seem to be pneumonia or pulmonary infection. She does not have a significant cough. PLAN: Discontinue IV vancomycin, continue cefepime for now. Would switch her to oral Levaquin tomorrow if she continues to do well, 500 mg daily to finish a 10-day course. Echocardiogram was reviewed, which showed severe right-sided heart failure. No pericardial effusion. Pacemaker noted. Severe mitral calcification with moderate left ventricular inflow tract obstruction and mild mitral insufficiency. Will obtain CT of the abdomen pelvis to rule out occult abscess as the cause of infection or any renal pathology before we de-escalate her therapy to oral Levaquin. Obtain CBC, CRP, ESR tomorrow. Pseudomonas bacteremia is not a typical pathogen to cause endocarditis and therefore, this would be very unlikely.
[2019-08-07 20:00] VITALS: BP 131/60
[2019-08-08] VITALS: BP 136/68
[2019-08-08] MEDS: ACETAMINOPHEN TAB 650MG DOSE (2X325MG) PO PRN (02:44)
[2019-08-08] MEDS: ALBUTEROL SULFATE 2.5 MG/0.5 ML INH NEB SOLN INH SCH ×4 (03:53→20:59)
[2019-08-08 04:00] VITALS: BP 102/46
[2019-08-08 05:12] LABS: HEMATOCRIT 35.5 % (36.0-47.0); HEMOGLOBIN 11.5 g/dl (12.0-15.5); MEAN CORPUSCULAR HEMOGLOBIN 29.5 pg (27.0-33.0); MEAN CORPUSCULAR HGB CONC 32.4 g/dl (32.0-36.5); PLATELET COUNT, AUTOMATED 145 10^3/uL (150-450)
[2019-08-08 05:38] LABS: C REACTIVE PROTEIN QUANTITATIV 6.2 MG/DL (0.00-0.30); CALCIUM LEVEL 7.6 MG/DL (8.8-10.2); CREATININE FOR GFR 1.24 MG/DL (0.55-1.30); GLOMERULAR FILTRATION RATE 43.9 (>32); POTASSIUM SERUM 3.4 MEQ/L (3.5-5.1)
[2019-08-08] MEDS: GASTROGRAFIN SOLUTION 30ML PO SCH ×2 (06:27→06:28)
[2019-08-08] MEDS: LEVOTHYROXINE 25MCG TABLET (0.025MG) PO SCH (06:27)
[2019-08-08] MEDS: SLF 3 ML SYR IV SCH ×3 (06:28→21:25)
[2019-08-08] MEDS ORDERED: ISOVUE-370 76% 100ML VIAL (Q9967) As Ordered ONE (07:55)
[2019-08-08 08:00] VITALS: BP 105/52
[2019-08-08] MEDS: TORSEMIDE 20 MG TAB PO SCH (09:33)
[2019-08-08] MEDS: CEFEPIME HCL 2 GM in D5W MINI-BAG PLUS 50 ML IV SCH (09:35)
[2019-08-08] MEDS: OMEPRAZOLE 20 MG CAP PO SCH (09:35)
[2019-08-08] MEDS: POTASSIUM CHLORIDE 10 MEQ SR TABLET PO SCH ×2 (09:35→21:22)
[2019-08-08] MEDS: NYSTATIN CREAM 15 GM TOP SCH ×2 (09:36→22:00)
[2019-08-08] MEDS: VANICREAM MOISTURIZING SKIN CREAM 113GM TUBE TOP SCH (09:36)
[2019-08-08 12:00] VITALS: BP 105/53
--- NOTE | 2019-08-08 12:32 | IPNPDOC ---
Date Seen The patient was seen on 08/08/19. Progress Note SUBJECTIVE: Patient reports not feeling so well, cough persistent. WBC 9, afebrile. OBJECTIVE General: No acute distress, Alert, morbidly obese BMI 42 with limited mobility Eyes: Normal sclera, EOMI, LIZA HENT: Atraumatic, neck supple, moist mucous membranes Cardiovascular: Normal rate. Pulmonary: Minimal crackles in b/l bases. No wheezing noted. Difficult to appreciate breath sounds given body habitus. GI: Soft, nontender, obese Skin: Warm and dry. b/l LE with extensive skin erythema and chronic venous stasis changes with overlying dressing, no open wound noted underneath. Neuro: CN grossly intact. Generalized weakness worse in LE. Psych: oriented x 3 IMAGING: CXR- IMPRESSION: Cardiomegaly. Chronic lung findings as above with no acute infiltrate. CT chest Angio- IMPRESSION: 1. There has been little change from 01/05/2019. No acute interval pulmonary embolism is identified. 2. Minimal bilateral lower lobe infiltrates or atelectasis, increased since the prior study. 3. Old granulomatous disease of the spleen. 4. Cardiomegaly with TAVR and pacemaker. MICROBIOLOGY: Please see below. ASSESSMENT AND PLAN: 1. Sepsis - 2/2 UTI and Pseudomonas bacteremia - Suspect LE wound although it is primarily erythematous but no active open wound noted at this time. - Initial presentation with hypotension, lactic acidosis 3.1->5.4, and leukocytosis WBC 19.1. - Blood culture + Pseudomonas x2. Urine culture + strep - c/w cefepime. ID following. - Repeat ECHO noted. Patient with severe pulmonary HTN and R. sided heart failure, no obvious vegetation noted in report. - f/u Abd/Pelvis CT for occult abscess/source of infection. 2. HTN hx? - No medications seen. - No medications needed at this time. 3. PAD - Follows with vascular as outpatient. - resume home meds. 4. Chronic venous insufficiency with LE wounds - Wound care consult. - Reportedly at baseline and has been treated for infection previously. - On empiric abx at this time. 5. Hypothyroidism - resume synthroid 6. Afib - resume warfarin. monitor INR. 7. s/p AVR - continue with warfarin. Monitor INR. - Goal 2-3 8. ALCIRA with bipap noncompliant Code status: Full code VS, I&O, 24H, Fishbone Vital Signs/I&O Vital Signs Date Time Temp Pulse Resp B/P (MAP) Pulse Ox O2 Delivery O2 Flow Rate FiO2 08/08/19 12:00 98.3 72 18 105/53 (70) 98 Room Air 08/06/19 20:00 1.0 I&O- Last 24 Hours up to 6 AM 08/08/19 06:00 Intake Total 330 ml Output Total 2630 ml Balance -2300 ml Laboratory Data 24H LABS Laboratory Tests 2 08/07/19 21:53: Vancomycin Level Trough 25.4*H 08/08/19 05:00: Nucleated Red Blood Cells % (auto) 0.0, Prothrombin Time 31.0H, Prothromb Time International Ratio 3.00, Anion Gap 6L, Glomerular Filtration Rate 43.9, Calcium Level 7.6L, C-Reactive Protein, Quantitative 6.20H 08/08/19 05:46: Erythrocyte Sedimentation Rate 43H CBC/BMP Laboratory Tests 08/08/19 05:00 Microbiology Microbiology 08/08/19 Blood Culture, Received Pending 08/04/19 Urine Culture - Final, Complete Streptococcus Sanguinis 08/04/19 Blood Culture - Final, Complete Pseudomonas Aeruginosa 08/04/19 Respiratory Virus Panel (PCR) ([facility]) - Final, Complete 08/04/19 Blood Culture - Final, Complete Pseudomonas Aeruginosa NIKIA BALDWIN MD Aug 08, 2019 12:32
[2019-08-08] MEDS ORDERED: LevoFLOXacin 500 MG TABLET PO ONE (13:30)
--- NOTE | 2019-08-08 14:22 | IPN ---
DATE: 08/08/2019 Mrs. Cuenca is doing great. She is sitting in the chair. Just complains of dependent edema and heaviness in her legs when sitting with her legs dependent. She has been afebrile. She has no nausea, vomiting or diarrhea. No urinary symptoms or flank pain. PHYSICAL EXAMINATION: Temperature is 98.3, pulse 72, respirations 18, blood pressure 105/53, O2 sat 98% on room air. Heart: Normal S1, S2. Systolic ejection murmur 2/6. Lungs are clear. No wheezes, rales or rhonchi. Abdomen: Morbidly obese, soft, nontender. Extremities: +2 pitting edema bilaterally. No open ulcerations. Dry skin. LABORATORY DATA: White count is 9, hemoglobin 11.5, hematocrit 35.5, and platelets 145. ESR 43. Sodium 139, potassium 3.4, chloride 108, bicarb 25, BUN 28, creatinine 1.24, glucose 160, calcium 7.6, CRP 6.2. Blood cultures are positive for Pseudomonas aeruginosa. Urine culture Strep sanguinis. CT abdomen and pelvis was done this morning and still pending. IMPRESSION: 1. Pseudomonas aeruginosa bacteremia, possibly of urinary origin versus cellulitis of lower extremities. CT of abdomen and pelvis has been ordered and is still pending. The patient is on IV cefepime day #5. That will be discontinued and she will be switched to Levaquin. 2. Dependent edema with venous ulcers. The patient needs to have compression stockings or Tubigrips. PLAN: Discontinue cefepime switch to Levaquin 500mg today then 250 mg daily to Finish 10 day course MTDD
--- NOTE | 2019-08-08 16:25 | REP ---
HISTORY: Pseudomonas infection. COMPARISON: None. CONTRAST: 100 mL [id number]. The precontrast enhanced portion of the examination shows calcifications throughout the spleen consistent with granulomatous changes. There is a slight micronodular surface to the hepatic parenchyma with an abnormal caudate to left lobe ratio. There are no nephroliths. In the superior pole of the right kidney there is a round 2 cm sized focal area of low density consistent with a cyst. Tiny renal cortical cysts are seen bilaterally. There are no enhancing hepatic lesions. The spleen and adrenal glands are unremarkable. There is fatty infiltration of the pancreas which is atrophic. There is no abnormal peripancreatic fluid or adenopathy. There is mild periaortic adenopathy. There is calcific atherosclerotic change seen in the abdominal aorta. There is significant spray artifact arising from heavy density barium within the colon due to ingestion of heavy density barium during a previous barium examination of 08/07/2019. This causes significant artifact. Small amounts of air density free within the intraperitoneal cavity cannot be ruled out secondary to this. There is no gross free air or free fluid. There is no evidence of intestinal obstruction. There is no evidence of abnormal bowel wall thickening. CT PELVIS: There is no evidence of free fluid or free air. There is no mass or adenopathy. The pelvic bowel loops are within normal limits. There is contrast and stool contamination in the gluteal cleft. Bone window technique throughout the exam shows the bones to be demineralized with advanced degenerative changes. The lung bases show chronic changes without evidence of a pleural or pericardial effusion. There is four chamber cardiac enlargement. IMPRESSION: 1. Evidence of cirrhotic features to the liver. Correlate clinically. 2. Evidence of pancreatic atrophy and fatty infiltration. 3. There is periaortic adenopathy, etiology uncertain. 4. Bilateral renal cysts. 5. Exam limitations as described above. 6. Other findings as described above. Electronically Signed by Bello Hernandez DO 08/08/2019 04:46 P
[2019-08-08] MEDS: WARFARIN SOD 3 MG TAB PO SCH (17:23)
[2019-08-08] MEDS: guaiFENesin DM LIQ 10ML UD PO PRN (21:21)
[2019-08-08] MEDS: BENZONATATE 100 MG CAP PO PRN (21:22)
[2019-08-08 22:00] VITALS: BP 133/52
[2019-08-09] MEDS: ALBUTEROL SULFATE 2.5 MG/0.5 ML INH NEB SOLN INH SCH ×7 (00:44→23:59)
[2019-08-09 02:00] VITALS: BP 124/55
[2019-08-09] MEDS: LEVOTHYROXINE 25MCG TABLET (0.025MG) PO SCH (05:35)
[2019-08-09] MEDS: SLF 3 ML SYR IV SCH ×3 (05:35→21:08)
[2019-08-09] MEDS: guaiFENesin DM LIQ 10ML UD PO PRN (05:35)
[2019-08-09 06:00] VITALS: BP 132/54
[2019-08-09] MEDS: OMEPRAZOLE 20 MG CAP PO SCH (09:00)
[2019-08-09] MEDS: TORSEMIDE 20 MG TAB PO SCH (09:00)
[2019-08-09] MEDS: NYSTATIN CREAM 15 GM TOP SCH ×2 (09:00→21:07)
[2019-08-09] MEDS: LevoFLOXacin 250 MG TABLET PO SCH (09:00)
[2019-08-09] MEDS: POTASSIUM CHLORIDE 10 MEQ SR TABLET PO SCH ×2 (09:00→21:08)
[2019-08-09] MEDS: VANICREAM MOISTURIZING SKIN CREAM 113GM TUBE TOP SCH (09:01)
[2019-08-09 09:07] LABS: HEMATOCRIT 38.2 % (36.0-47.0); MEAN CORPUSCULAR HEMOGLOBIN 28.6 pg (27.0-33.0); MEAN CORPUSCULAR HGB CONC 31.4 g/dl (32.0-36.5); PLATELET COUNT, AUTOMATED 173 10^3/uL (150-450); WHITE BLOOD COUNT 10.3 10^3/uL (4.0-10.0)
[2019-08-09 09:25] LABS: CALCIUM LEVEL 7.8 MG/DL (8.8-10.2); CREATININE FOR GFR 1.13 MG/DL (0.55-1.30); GLOMERULAR FILTRATION RATE 48.8 (>32); POTASSIUM SERUM 3.1 MEQ/L (3.5-5.1)
[2019-08-09 09:35] LABS: INR 3.18; PROTHROMBIN TIME 32.6 SECONDS (11.8-14.0)
[2019-08-09] MEDS ORDERED: POTASSIUM CHLORIDE 10 MEQ SR TABLET PO ONE (12:00)
--- NOTE | 2019-08-09 12:49 | IPNPDOC ---
Date Seen The patient was seen on 08/09/19. Progress Note SUBJECTIVE: Patient think that her LE might be a bit more swollen today, difficult to tell. Afebrile overnight, WBC 10.3. Transitioned to PO levaquin. INR 3.18, hold today's warfarin. OBJECTIVE General: No acute distress, Alert, morbidly obese BMI 42 with limited mobility Eyes: Normal sclera, EOMI, LIZA HENT: Atraumatic, neck supple, moist mucous membranes Cardiovascular: Normal rate. Pulmonary: Minimal crackles in b/l bases. No wheezing noted. Difficult to appreciate breath sounds given body habitus. GI: Soft, nontender, obese Skin: Warm and dry. b/l LE with extensive skin erythema and chronic venous stasis changes with overlying dressing, no open wound noted underneath. Neuro: CN grossly intact. Generalized weakness worse in LE. Psych: oriented x 3 IMAGING: CXR- IMPRESSION: Cardiomegaly. Chronic lung findings as above with no acute infiltrate. CT chest Angio- IMPRESSION: 1. There has been little change from 01/05/2019. No acute interval pulmonary embolism is identified. 2. Minimal bilateral lower lobe infiltrates or atelectasis, increased since the prior study. 3. Old granulomatous disease of the spleen. 4. Cardiomegaly with TAVR and pacemaker. MICROBIOLOGY: Please see below. ASSESSMENT AND PLAN: 1. Sepsis - 2/2 UTI and Pseudomonas bacteremia - Suspect LE wound although it is primarily erythematous but no active open wound noted at this time. - Initial presentation with hypotension, lactic acidosis 3.1->5.4, and leukocytosis WBC 19.1. - Blood culture + Pseudomonas x2. Urine culture + strep - Cefepime d/c. transitioned to PO levaquin to complete 10 day course. ID following. - Repeat ECHO noted. Patient with severe pulmonary HTN and R. sided heart failure, no obvious vegetation noted in report. - f/u Abd/Pelvis CT for occult abscess/source of infection. 2. HTN hx? - No medications seen. - No medications needed at this time. 3. PAD - Follows with vascular as outpatient. - resume home meds. 4. Chronic venous insufficiency with LE wounds - Wound care consult. - Reportedly at baseline and has been treated for infection previously. - On empiric abx at this time. 5. Hypothyroidism - resume synthroid 6. Afib - resume warfarin. monitor INR. 7. s/p AVR - continue with warfarin. Monitor INR. - Goal 2-3 8. ALCIRA with bipap noncompliant Code status: Full code VS, I&O, 24H, Fishbone Vital Signs/I&O Vital Signs Date Time Temp Pulse Resp B/P (MAP) Pulse Ox O2 Delivery O2 Flow Rate FiO2 08/09/19 06:00 97.9 70 20 132/54 (80) 96 Room Air 08/09/19 02:00 2.0 I&O- Last 24 Hours up to 6 AM 08/09/19 05:59 Intake Total 1140 ml Output Total 1300 ml Balance -160 ml Laboratory Data 24H LABS Laboratory Tests 2 08/08/19 17:12: Bedside Glucose (Misc Panel) 153H 08/09/19 07:38: Nucleated Red Blood Cells % (auto) 0.0, Prothrombin Time 32.6H, Prothromb Time International Ratio 3.18, Anion Gap 6L, Glomerular Filtration Rate 48.8, Calcium Level 7.8L CBC/BMP Laboratory Tests 08/09/19 07:38 Microbiology Microbiology 08/08/19 Blood Culture - Preliminary, Resulted No growth after 24 hours . All specim... 08/04/19 Urine Culture - Final, Complete Streptococcus Sanguinis 08/04/19 Blood Culture - Final, Complete Pseudomonas Aeruginosa 08/04/19 Respiratory Virus Panel (PCR) ([facility]) - Final, Complete 08/04/19 Blood Culture - Final, Complete Pseudomonas Aeruginosa NIKIA BALDWIN MD Aug 09, 2019 12:49
[2019-08-09] MEDS ORDERED: FUROSEMIDE 40 MG/4 ML VIAL (J1940) IV ONE (13:00)
[2019-08-09 14:00] VITALS: BP 129/54
--- NOTE | 2019-08-09 17:49 | REP ---
Examination Requested: Cookie Swallow Reason For Exam: Dysphasia The procedure was performed by KAIDEN Angel, under the direct supervision of Dr. Perez. The procedure was performed with Eli Valdez from speech pathology present. 5 ml aliquots of thin, pudding, mixed fruit, soft food, hard food and pill consistency barium was administered. No penetration or aspiration was visualized throughout the course of the exam. The detailed report of this examination will be provided by speech pathology. 2.2 minutes of fluoroscopy time was utilized for this procedure. Reviewed by KAIDEN Stephens 08/07/2019 03:12 P Electronically Signed by Neri Perez MD 08/09/2019 05:39 P
[2019-08-09 22:00] VITALS: BP 129/55
[2019-08-09] MEDS: ACETAMINOPHEN TAB 650MG DOSE (2X325MG) PO PRN (23:10)
[2019-08-10 02:00] VITALS: BP 130/50
[2019-08-10] MEDS: ALBUTEROL SULFATE 2.5 MG/0.5 ML INH NEB SOLN INH SCH ×7 (02:07→23:31)
[2019-08-10 06:00] VITALS: BP 130/57
[2019-08-10] MEDS: LEVOTHYROXINE 25MCG TABLET (0.025MG) PO SCH (06:06)
[2019-08-10] MEDS: LevoFLOXacin 250 MG TABLET PO SCH (06:06)
[2019-08-10] MEDS: SLF 3 ML SYR IV SCH ×3 (06:07→21:06)
[2019-08-10 08:19] LABS: HEMATOCRIT 35.9 % (36.0-47.0); HEMOGLOBIN 11.2 g/dl (12.0-15.5); MEAN CORPUSCULAR HGB CONC 31.2 g/dl (32.0-36.5); MEAN CORPUSCULAR VOLUME 89.8 fl (80.0-96.0); PLATELET COUNT, AUTOMATED 196 10^3/uL (150-450); WHITE BLOOD COUNT 9.9 10^3/uL (4.0-10.0)
[2019-08-10] MEDS: OMEPRAZOLE 20 MG CAP PO SCH (08:29)
[2019-08-10] MEDS: POTASSIUM CHLORIDE 10 MEQ SR TABLET PO SCH ×2 (08:29→21:03)
[2019-08-10] MEDS: TORSEMIDE 20 MG TAB PO SCH (08:30)
[2019-08-10] MEDS: NYSTATIN CREAM 15 GM TOP SCH ×2 (08:32→21:03)
[2019-08-10] MEDS: VANICREAM MOISTURIZING SKIN CREAM 113GM TUBE TOP SCH (08:32)
[2019-08-10 08:49] LABS: CALCIUM LEVEL 8.1 MG/DL (8.8-10.2); CREATININE FOR GFR 1.12 MG/DL (0.55-1.30); GLOMERULAR FILTRATION RATE 49.3 (>32); POTASSIUM SERUM 3.5 MEQ/L (3.5-5.1)
[2019-08-10 10:00] VITALS: BP 124/61
[2019-08-10] MEDS ORDERED: POTASSIUM CHLORIDE 10 MEQ SR TABLET PO ONE (10:00)
[2019-08-10] MEDS: BENZONATATE 100 MG CAP PO PRN ×2 (12:11→21:02)
[2019-08-10] MEDS: ACETAMINOPHEN TAB 650MG DOSE (2X325MG) PO PRN ×2 (12:12→23:38)
[2019-08-10 14:00] VITALS: BP 109/56
--- NOTE | 2019-08-10 14:17 | IPNPDOC ---
Date Seen The patient was seen on 08/10/19. Progress Note SUBJECTIVE: 84-year-old female with past medical history of severe pulmonary hypertension, A. fib (on Coumadin), diabetes, hypertension, diastolic heart failure, aortic valve replacement was admitted for UTI and Pseudomonas bacteremia. Patient is currently stable and her bed, without any complaints, TTE was negative for any vegetation. Patient denies a short breath, chest pain, nausea, vomiting. All pain or diarrhea. 10 point review of system was negative except for above PHYSICAL EXAMINATION: VITAL SIGNS: Please see below. GENERAL: No distress, frail HEENT: Normocephalic, atraumatic, moist mucous membranes NECK: Supple CARDIOVASCULAR EXAMINATION: Irregularly irregular, valvular click appreciated RESPIRATORY EXAMINATION: Diminished in the bases, no wheezing ABDOMINAL EXAMINATION: Soft, nontender, nondistended, positive bowel sounds EXTREMITIES: Range of motion intact SKIN: No rash NEUROLOGICAL EXAMINATION: Alert and oriented 3, no focal deficits PSYCHIATRIC EXAMINATION: Calm and cooperative LABORATORY DATA, IMAGING STUDIES, MICROBIOLOGY: Please see below. Echocardiogram: Severe pulmonary hypertension. DVT prophylaxis ordered?: No ASSESSMENT AND PLAN: 84-year-old female with past medical history of severe pulmonary hypertension, A. fib, diastolic heart failure, aortic valve replacement, hypertension, diabetes mellitus is admitted for UTI and Pseudomonas bacteremia. PROBLEMS: 1. Bacteremia: With UTI, Pseudomonas, repeat blood cultures negative to date, antibiotics downgraded from cefepime to Levaquin, to complete 10 days of total antibiotics, ID following. TTE negative for vegetations. 2. A. fib:. Continue Coumadin for anticoagulation, rate is well controlled 3. Severe Pulmonary hypertension: Right ventricular systolic pressure of 90 mmHg on recent echocardiogram, likely due to long-standing and untreated obstructive sleep apnea. Patient reports noncompliance due to poor mask fitting/noise of the machine, importance of CPAP was explained to the patient along with consequences of untreated sleep apnea; patient reports no one has ever told her about the consequences of untreated sleep apnea in the past, agrees to using CPAP from now on, will initiate CPAP starting tonight. Due to prophylaxis: On Coumadin. GI prophylaxis: Home PPI VS, I&O, 24H, Fishbone Vital Signs/I&O Vital Signs Date Time Temp Pulse Resp B/P (MAP) Pulse Ox O2 Delivery O2 Flow Rate FiO2 08/10/19 10:00 97.9 70 19 124/61 (82) 94 Room Air 08/09/19 02:00 2.0 I&O- Last 24 Hours up to 6 AM 08/10/19 06:00 Intake Total 1460 ml Balance 1460 ml Laboratory Data 24H LABS Laboratory Tests 2 08/10/19 08:07: Nucleated Red Blood Cells % (auto) 0.0, Anion Gap 4L, Glomerular Filtration Rate 49.3, Calcium Level 8.1L CBC/BMP Laboratory Tests 08/10/19 08:07 Microbiology Microbiology 08/08/19 Blood Culture - Preliminary, Resulted No Growth after 48 hours. All Specime... 08/04/19 Urine Culture - Final, Complete Streptococcus Sanguinis 08/04/19 Blood Culture - Final, Complete Pseudomonas Aeruginosa 08/04/19 Respiratory Virus Panel (PCR) ([facility]) - Final, Complete 08/04/19 Blood Culture - Final, Complete Pseudomonas Aeruginosa ANISHA HINOJOSA MD Aug 10, 2019 14:17
[2019-08-10 16:48] LABS: INR 2.41; PROTHROMBIN TIME 26.1 SECONDS (11.8-14.0)
[2019-08-10] MEDS: WARFARIN SOD 3 MG TAB PO SCH (17:25)
[2019-08-10 18:00] VITALS: BP 111/57
[2019-08-10] MEDS: guaiFENesin DM LIQ 10ML UD PO PRN (21:02)
[2019-08-10 21:52] VITALS: BP 131/52
[2019-08-11 02:41] VITALS: BP 131/52
[2019-08-11] MEDS: ALBUTEROL SULFATE 2.5 MG/0.5 ML INH NEB SOLN INH SCH ×6 (03:17→23:14)
[2019-08-11] MEDS: guaiFENesin DM LIQ 10ML UD PO PRN ×3 (04:45→20:05)
[2019-08-11] MEDS: BENZONATATE 100 MG CAP PO PRN ×2 (05:10→20:05)
[2019-08-11] MEDS: LEVOTHYROXINE 25MCG TABLET (0.025MG) PO SCH (05:10)
[2019-08-11] MEDS: LevoFLOXacin 250 MG TABLET PO SCH (05:10)
[2019-08-11] MEDS: SLF 3 ML SYR IV SCH ×3 (05:11→20:06)
[2019-08-11 05:48] VITALS: BP 132/54
[2019-08-11 06:28] LABS: HEMATOCRIT 37.3 % (36.0-47.0); HEMOGLOBIN 11.6 g/dl (12.0-15.5); MEAN CORPUSCULAR HEMOGLOBIN 28.6 pg (27.0-33.0); MEAN CORPUSCULAR HGB CONC 31.1 g/dl (32.0-36.5); MEAN CORPUSCULAR VOLUME 91.9 fl (80.0-96.0); PLATELET COUNT, AUTOMATED 204 10^3/uL (150-450); RED BLOOD COUNT 4.06 10^6/uL (4.00-5.40); WHITE BLOOD COUNT 8.7 10^3/uL (4.0-10.0)
[2019-08-11 06:40] LABS: INR 2.51
[2019-08-11 06:45] LABS: CALCIUM LEVEL 7.7 MG/DL (8.8-10.2); CREATININE FOR GFR 1.25 MG/DL (0.55-1.30); GLOMERULAR FILTRATION RATE 43.5 (>32); MAGNESIUM LEVEL 1.4 MG/DL (1.8-2.4); PHOSPHORUS LEVEL 2.1 MG/DL (2.5-4.9); POTASSIUM SERUM 4.3 MEQ/L (3.5-5.1)
[2019-08-11] MEDS: OMEPRAZOLE 20 MG CAP PO SCH (08:42)
[2019-08-11] MEDS: TORSEMIDE 20 MG TAB PO SCH (08:42)
[2019-08-11] MEDS: ACETAMINOPHEN TAB 650MG DOSE (2X325MG) PO PRN ×3 (08:43→23:08)
[2019-08-11] MEDS: POTASSIUM CHLORIDE 10 MEQ SR TABLET PO SCH ×2 (08:43→20:05)
[2019-08-11] MEDS: NYSTATIN CREAM 15 GM TOP SCH ×2 (08:44→20:05)
[2019-08-11] MEDS: MAG SULF 1GM/100ML (MAG RUN) 1 GM in IV 1 EA IV SCH ×3 (08:58→10:34)
[2019-08-11] MEDS: VANICREAM MOISTURIZING SKIN CREAM 113GM TUBE TOP SCH (08:59)
[2019-08-11 10:00] VITALS: BP 127/55
[2019-08-11] MEDS: K-PHOS NEUTRAL 250MG TABLET (SOD.PHOSPHATE/POT.PHOSPHATE) PO SCH ×2 (10:33→15:09)
[2019-08-11] MEDS ORDERED: MAGNESIUM OXIDE 400 MG TAB (MAG-OX) PO ONE (11:00)
[2019-08-11 14:00] VITALS: BP 125/53
--- NOTE | 2019-08-11 14:11 | IPNPDOC ---
Date Seen The patient was seen on 08/11/19. Progress Note SUBJECTIVE: 84-year-old female with past medical history of severe pulmonary hypertension, A. fib (on Coumadin), diabetes, hypertension, diastolic heart failure, aortic valve replacement was admitted for UTI and Pseudomonas bacteremia. Patient is currently stable and her bed, without any complaints, TTE was negative for any vegetation. 08/11/2019 Tolerate his CPAP overnight, reports coughing in the morning, currently in chair without any complaints, worked with physical therapy, tolerating diet, awaiting placement. She denies any short of breath, chest pain, vomiting, abdominal pain, diarrhea. 10 point review of system was negative except for above PHYSICAL EXAMINATION: VITAL SIGNS: Please see below. GENERAL: No distress, frail HEENT: Normocephalic, atraumatic, moist mucous membranes NECK: Supple CARDIOVASCULAR EXAMINATION: Irregularly irregular, valvular click appreciated RESPIRATORY EXAMINATION: Diminished in the bases, no wheezing ABDOMINAL EXAMINATION: Soft, nontender, nondistended, positive bowel sounds EXTREMITIES: Range of motion intact SKIN: No rash NEUROLOGICAL EXAMINATION: Alert and oriented 3, no focal deficits PSYCHIATRIC EXAMINATION: Calm and cooperative LABORATORY DATA, IMAGING STUDIES, MICROBIOLOGY: Please see below. Echocardiogram: Severe pulmonary hypertension. DVT prophylaxis ordered?: No ASSESSMENT AND PLAN: 84-year-old female with past medical history of severe pulmonary hypertension, A. fib, diastolic heart failure, aortic valve replacement, hypertension, diabetes mellitus is admitted for UTI and Pseudomonas bacteremia. PROBLEMS: 1. Bacteremia: With UTI, Pseudomonas, repeat blood cultures negative to date, antibiotics downgraded from cefepime to Levaquin, to complete 10 days of total antibiotics, ID following. TTE negative for vegetations. Awaiting rehabilitation placement 2. A. fib:. Continue Coumadin for anticoagulation, rate is well controlled 3. Severe Pulmonary hypertension: Right ventricular systolic pressure of 90 mmHg on recent echocardiogram, likely due to long-standing and untreated obstructive sleep apnea. Patient reports noncompliance due to poor mask fitting/noise of the machine, importance of CPAP was explained to the patient along with consequences of untreated sleep apnea; patient reports no one has ever told her about the consequences of untreated sleep apnea in the past, agrees to using CPAP from now on, will initiate CPAP starting tonight. Due to prophylaxis: On Coumadin. GI prophylaxis: Home PPI VS, I&O, 24H, Fishbone Vital Signs/I&O Vital Signs Date Time Temp Pulse Resp B/P (MAP) Pulse Ox O2 Delivery O2 Flow Rate FiO2 08/11/19 10:00 97.8 70 19 127/55 (79) 97 Room Air 08/09/19 02:00 2.0 I&O- Last 24 Hours up to 6 AM 08/11/19 06:00 Intake Total 1230 ml Balance 1230 ml Laboratory Data 24H LABS Laboratory Tests 2 08/10/19 16:06: Prothrombin Time 26.1H, Prothromb Time International Ratio 2.41 08/11/19 05:56: Prothrombin Time 27.0H, Prothromb Time International Ratio 2.51, Nucleated Red Blood Cells % (auto) 0.0, Anion Gap 5L, Glomerular Filtration Rate 43.5, Calcium Level 7.7L, Phosphorus Level 2.1L, Magnesium Level 1.4L CBC/BMP Laboratory Tests 08/11/19 05:56 Microbiology Microbiology 08/08/19 Blood Culture - Preliminary, Resulted No Growth after 72 hours. All specime... 08/04/19 Urine Culture - Final, Complete Streptococcus Sanguinis 08/04/19 Blood Culture - Final, Complete Pseudomonas Aeruginosa 08/04/19 Respiratory Virus Panel (PCR) ([facility]) - Final, Complete 08/04/19 Blood Culture - Final, Complete Pseudomonas Aeruginosa ANISHA HINOJOSA MD Aug 11, 2019 14:11
[2019-08-11 18:00] VITALS: BP 128/55
[2019-08-11] MEDS: WARFARIN SOD 3 MG TAB PO SCH (18:00)
--- NOTE | 2019-08-11 18:50 | IPN ---
DATE: 08/11/2019 SUBJECTIVE: The patient was seen and examined this afternoon. She currently has no new complaints. She has continued edema in her bilateral lower legs. She has remained afebrile. She denies any nausea or vomiting or diarrhea. She denies any urinary symptoms or flank pain. OBJECTIVE: VITAL SIGNS: Temperature 97.7, pulse 70, respiratory rate 20, blood pressure 125/53, pulse oximetry 97% on room air. GENERAL: The patient is awake, alert and oriented. She does not appear in any acute distress. She is sitting comfortably in her chair watching TV. HEENT: Normocephalic, atraumatic. Eyes are nonicteric. Trachea is midline. There is no palpable cervical axillary or supraclavicular adenopathy. CARDIOVASCULAR: Normal S1, S2. Systolic ejection murmur 2/6 present. RESPIRATORY: Clear vesicular breath sounds bilaterally with good respiratory effort. There are no wheezes, rhonchi, or rales. ABDOMEN: The patient is morbidly obese. Her abdomen is soft, nontender and nondistended. There is normoactive bowel sounds. EXTREMITIES: There is significant 2-3+ pitting edema bilaterally with no open ulcerations. LABORATORY DATA: Hematology: White blood cells 8.7, hemoglobin 11.6, hematocrit 37.3, platelet count 204. Chemistries: Sodium 138, potassium 4.3, chloride 106, CO2 27, BUN 18, creatinine 1.25, glucose 118, Calcium 7.7, phosphorus 2.1, magnesium 1.4. MEDICATIONS: Vancomycin trough 25.4 Venous blood cultures on 08/08 were negative for any growth. IMAGING: Abdominal and pelvis CT completed on 08/08 demonstrated evidence of cirrhotic features to the liver, evidence of pancreatic atrophy, fatty infiltration and paraaortic adenopathy, bilateral renal cysts, otherwise negative CT abdomen and pelvis. ASSESSMENT AND PLAN: 1. Pseudomonas aeruginosa bacteremia, likely of urinary origin. Patient had a repeat blood culture have remained negative. She completed five days of IV cefepime and she was recently switched to Levaquin. She is currently on day 410 of her Levaquin.and will need to complete a full 10 day course of Levaquin. At this point infectious disease will be signing off. 2. Dependant edema with venous ulcers. Patient has venous stasis disease. She will benefit from compression stockings. My faculty preceptor for this patient encounter was physically present during the encounter and was fully available. All aspects of the patient interview, examination, medical decision making process, and medical care plan development were reviewed and approved by the faculty preceptor. The faculty preceptor is aware and concurs with the plan as stated in the body of this note and will attest to such by his/her cosignature. CHENCHO
[2019-08-11 22:00] VITALS: BP 125/53
[2019-08-12 02:00] VITALS: BP 128/57
[2019-08-12] MEDS: ALBUTEROL SULFATE 2.5 MG/0.5 ML INH NEB SOLN INH SCH ×4 (03:37→15:14)
[2019-08-12] MEDS: ACETAMINOPHEN TAB 650MG DOSE (2X325MG) PO PRN (04:42)
[2019-08-12] MEDS: LevoFLOXacin 250 MG TABLET PO SCH (05:53)
[2019-08-12] MEDS: BENZONATATE 100 MG CAP PO PRN (05:53)
[2019-08-12] MEDS: LEVOTHYROXINE 25MCG TABLET (0.025MG) PO SCH (05:53)
[2019-08-12] MEDS: SLF 3 ML SYR IV SCH ×2 (05:54→14:00)
[2019-08-12 06:00] VITALS: BP 102/56
[2019-08-12 06:48] LABS: HEMATOCRIT 35.1 % (36.0-47.0); HEMOGLOBIN 11.2 g/dl (12.0-15.5); MEAN CORPUSCULAR HEMOGLOBIN 28.6 pg (27.0-33.0); MEAN CORPUSCULAR HGB CONC 31.9 g/dl (32.0-36.5); MEAN CORPUSCULAR VOLUME 89.5 fl (80.0-96.0); PLATELET COUNT, AUTOMATED 209 10^3/uL (150-450); RED BLOOD COUNT 3.92 10^6/uL (4.00-5.40); WHITE BLOOD COUNT 10.1 10^3/uL (4.0-10.0)
[2019-08-12 07:00] LABS: INR 3.24
[2019-08-12 07:22] LABS: CALCIUM LEVEL 7.8 MG/DL (8.8-10.2); CREATININE FOR GFR 1.15 MG/DL (0.55-1.30); GLOMERULAR FILTRATION RATE 47.9 (>32); MAGNESIUM LEVEL 1.9 MG/DL (1.8-2.4); PHOSPHORUS LEVEL 2.7 MG/DL (2.5-4.9)
[2019-08-12] MEDS: VANICREAM MOISTURIZING SKIN CREAM 113GM TUBE TOP SCH (09:00)
[2019-08-12] MEDS: NYSTATIN CREAM 15 GM TOP SCH (09:13)
[2019-08-12] MEDS: POTASSIUM CHLORIDE 10 MEQ SR TABLET PO SCH (09:13)
[2019-08-12] MEDS: TORSEMIDE 20 MG TAB PO SCH (09:13)
[2019-08-12] MEDS: OMEPRAZOLE 20 MG CAP PO SCH (09:13)
--- NOTE | 2019-08-12 11:57 | IPNPDOC ---
Date Seen The patient was seen on 08/12/19. Progress Note SUBJECTIVE: 84-year-old female with past medical history of severe pulmonary hypertension, A. fib (on Coumadin), diabetes, hypertension, diastolic heart failure, aortic valve replacement was admitted for UTI and Pseudomonas bacteremia. Patient is currently stable and her bed, without any complaints, TTE was negative for any vegetation. 08/11/2019 Tolerate his CPAP overnight, reports coughing in the morning, currently in chair without any complaints, worked with physical therapy, tolerating diet, awaiting placement. She denies any short of breath, chest pain, vomiting, abdominal pain, diarrhea. 08/12/2019 Patient without any complaints at this time, tolerating diet, awaiting placement . 10 point review of system was negative except for above PHYSICAL EXAMINATION: VITAL SIGNS: Please see below. GENERAL: No distress, frail HEENT: Normocephalic, atraumatic, moist mucous membranes NECK: Supple CARDIOVASCULAR EXAMINATION: Irregularly irregular, valvular click appreciated RESPIRATORY EXAMINATION: Diminished in the bases, no wheezing ABDOMINAL EXAMINATION: Soft, nontender, nondistended, positive bowel sounds EXTREMITIES: Range of motion intact SKIN: No rash NEUROLOGICAL EXAMINATION: Alert and oriented 3, no focal deficits PSYCHIATRIC EXAMINATION: Calm and cooperative LABORATORY DATA, IMAGING STUDIES, MICROBIOLOGY: Please see below. Echocardiogram: Severe pulmonary hypertension. DVT prophylaxis ordered?: No ASSESSMENT AND PLAN: 84-year-old female with past medical history of severe pulmonary hypertension, A. fib, diastolic heart failure, aortic valve replacement, hypertension, diabetes mellitus is admitted for UTI and Pseudomonas bacteremia. PROBLEMS: 1. Bacteremia: With UTI, Pseudomonas, repeat blood cultures negative to date, antibiotics downgraded from cefepime to Levaquin, to complete 10 days of total antibiotics, ID following. TTE negative for vegetations. Awaiting rehabilitation placement 2. A. fib:. INR supratherapeutic, hold Coumadin for today. Rate is well controlled 3. Severe Pulmonary hypertension: Right ventricular systolic pressure of 90 mmHg on recent echocardiogram 4. Obstructive sleep apnea: Continue CPAP. Due to prophylaxis: On Coumadin. GI prophylaxis: Home PPI VS, I&O, 24H, Fishbone Vital Signs/I&O Vital Signs Date Time Temp Pulse Resp B/P (MAP) Pulse Ox O2 Delivery O2 Flow Rate FiO2 08/12/19 06:00 98.8 70 18 102/56 (71) 95 Room Air 08/09/19 02:00 2.0 I&O- Last 24 Hours up to 6 AM 08/12/19 06:00 Intake Total 1350 ml Output Total 600 ml Balance 750 ml Laboratory Data 24H LABS Laboratory Tests 2 08/12/19 06:33: Nucleated Red Blood Cells % (auto) 0.0, Prothrombin Time 33.0H, Prothromb Time International Ratio 3.24, Anion Gap 7L, Glomerular Filtration Rate 47.9, Calcium Level 7.8L, Phosphorus Level 2.7#, Magnesium Level 1.9 CBC/BMP Laboratory Tests 08/12/19 06:33 Microbiology Microbiology 08/08/19 Blood Culture - Preliminary, Resulted No Growth after 72 hours. All specime... 08/04/19 Urine Culture - Final, Complete Streptococcus Sanguinis 08/04/19 Blood Culture - Final, Complete Pseudomonas Aeruginosa 08/04/19 Respiratory Virus Panel (PCR) ([facility]) - Final, Complete 08/04/19 Blood Culture - Final, Complete Pseudomonas Aeruginosa ANISHA HINOJOSA MD Aug 12, 2019 11:57
[2019-08-12] MEDS ORDERED: WARF-60 PO (12:58)
[2019-08-12] MEDS ORDERED: LEVO250T12 PO (12:58)
--- NOTE | 2019-08-12 13:02 | DS.PDOC ---
Discharge Summary General Date of Admission Aug 04, 2019 at 07:15 Date of Discharge 08/12/2019 Attending Physician: ANISHA HINOJOSA MD Discharge Summary PROCEDURES PERFORMED DURING STAY: None. ADMITTING DIAGNOSES: 1. UTI, bacteremia. DISCHARGE DIAGNOSES: 1. UTI, bacteremia. COMPLICATIONS/CHIEF COMPLAINT: CHF. HISTORY OF PRESENT ILLNESS: 84-year-old female with past medical history of pulmonary hypertension, CHF, hypertension, A. fib on Coumadin, was admitted for UTI and bacteremia. Cultures grew sensitive Pseudomonas, TTE was negative for vegetation. Her antibiotics were switched to Levaquin based on sensitivities and she is to complete a 10 day course total. She was about physical therapy who recommend rehabilitation placement prior to discharge, hospital social worker has ar ranged for rehabilitation placement. Patient was also started on CPAP during her stay, but reports noncompliance the outpatient setting, recommend continued use at home.. HOSPITAL COURSE: As above. DISCHARGE MEDICATIONS: Please see below. ALLERGIES: Please see below. PHYSICAL EXAMINATION: VITAL SIGNS: Please see below. GENERAL: No distress, frail HEENT: Normocephalic, atraumatic, moist mucous membranes NECK: Supple CARDIOVASCULAR EXAMINATION: Irregularly irregular, valvular click appreciated RESPIRATORY EXAMINATION: Diminished in the bases, no wheezing ABDOMINAL EXAMINATION: Soft, nontender, nondistended, positive bowel sounds EXTREMITIES: Range of motion intact SKIN: No rash NEUROLOGICAL EXAMINATION: Alert and oriented 3, no focal deficits PSYCHIATRIC EXAMINATION: Calm and cooperative LABORATORY DATA: Please see below. PROGNOSIS: Guarded ACTIVITY: As tolerated. DIET: Are reactive DISCHARGE PLAN: Patient is to follow-up with PCP and wants 2 weeks DISPOSITION: Rehabilitation. DISCHARGE INSTRUCTIONS: 1. As above. DISCHARGE CONDITION: Stable. TIME SPENT ON DISCHARGE: Greater than 35 minutes. Vital Signs/I&Os Vital Signs Date Time Temp Pulse Resp B/P (MAP) Pulse Ox O2 Delivery O2 Flow Rate FiO2 08/12/19 06:00 98.8 70 18 102/56 (71) 95 Room Air 08/09/19 02:00 2.0 I&O- Last 24 Hours up to 6 AM 08/12/19 05:59 Intake Total 1350 ml Output Total 600 ml Balance 750 ml Laboratory Data Labs 24H Laboratory Tests 2 08/12/19 06:33: Nucleated Red Blood Cells % (auto) 0.0, Prothrombin Time 33.0H, Prothromb Time International Ratio 3.24, Anion Gap 7L, Glomerular Filtration Rate 47.9, Calcium Level 7.8L, Phosphorus Level 2.7#, Magnesium Level 1.9 CBC/BMP Laboratory Tests 08/12/19 06:33 Microbiology Microbiology 08/08/19 Blood Culture - Preliminary, Resulted No Growth after 72 hours. All specime... 08/04/19 Urine Culture - Final, Complete Streptococcus Sanguinis 08/04/19 Blood Culture - Final, Complete Pseudomonas Aeruginosa 08/04/19 Respiratory Virus Panel (PCR) ([facility]) - Final, Complete 08/04/19 Blood Culture - Final, Complete Pseudomonas Aeruginosa Discharge Medications Scheduled Levofloxacin (Levofloxacin) 250 Mg Tablet, 250 MG PO DAILY@06 Levothyroxine Sodium (Synthroid) 25 Mcg Tab, 25 MCG PO DAILY, (Reported) Omeprazole (Omeprazole) 20 Mg Cap, 20 MG PO DAILY, (Reported) Potassium Chloride (Potassium Chloride) 10 Meq Tab, 20 MEQ PO BID, (Reported) Torsemide (Torsemide) 20 Mg Tablet, 20 MG PO DAILY, (Reported) Warfarin Sodium (Warfarin Sodium) 3 Mg Tablet, 3 MG PO 2XWK, (Reported) TAKES ON SUNDAY AND SUNDAY Warfarin Sodium (Warfarin Sodium) 6 Mg Tablet, 6 MG PO 5XW TAKES ON SUNDAY, SUNDAY, SUNDAY, SUNDAY AND SUNDAY. ORDERED DAILY, BUT PATIENT STATES SHE TAKES THE 6MG 5 DAYS A WEEK Scheduled PRN Acetaminophen (Acetaminophen) 500 Mg Tab, 1,000 MG PO Q6H PRN for PAIN, (Reported) Albuterol Sulf (Albuterol Sulfate) 2.5 Mg/3 Ml Nebu, 1 INH INH Q4H PRN for RAKESH RTNESS OF BREATH, (Reported) Sennosides/Docusate Sodium (Senna Plus Tablet) 1 Tab Tab, 1 TAB PO BID PRN for CONSTIPATION, (Reported) Allergies Coded Allergies: dirithromycin (Verified Allergy, Intermediate, hives, 01/08/19) Sulfa (Sulfonamide Antibiotics) (Verified Allergy, Unknown, 01/08/19) Penicillins (Verified Adverse Reaction, Intermediate, tachycardia 40 yrs ago, 01/08/19) ANISHA HINOJOSA MD Aug 12, 2019 13:02
[2019-08-12 14:00] VITALS: BP 101/50
== END 2019-08-12 16:10 | DRG 872 ==
LOC: M ED 03:27 → M ED INP 07:15 → M ICU 10:11 → M PCU 18:05 → M MS5PR 08-08 16:09
PROVIDERS: ADMIT Student in an Organized Health Care Education/Training Program; ATTEND Internal Medicine
DX: A41.89 Other specified sepsis (principal); N39.0 Urinary tract infection, site not specified; Z68.41 Body mass index [BMI] 40.0-44.9, adult; E66.01 Morbid (severe) obesity due to excess calories; I27.20 Pulmonary hypertension, unspecified; I10 Essential (primary) hypertension; I48.91 Unspecified atrial fibrillation; Z79.01 Long term (current) use of anticoagulants; Z79.899 Other long term (current) drug therapy; Z88.2 Allergy status to sulfonamides; Z88.0 Allergy status to penicillin; Z88.8 Allergy status to other drugs, medicaments and biological substances; Z95.0 Presence of cardiac pacemaker; G47.33 Obstructive sleep apnea (adult) (pediatric); Z91.19 Patient's noncompliance with other medical treatment and regimen; E03.9 Hypothyroidism, unspecified; I87.2 Venous insufficiency (chronic) (peripheral); J45.909 Unspecified asthma, uncomplicated; I25.10 Atherosclerotic heart disease of native coronary artery without angina pectoris; E11.40 Type 2 diabetes mellitus with diabetic neuropathy, unspecified; Z95.2 Presence of prosthetic heart valve; M19.90 Unspecified osteoarthritis, unspecified site; I34.0 Nonrheumatic mitral (valve) insufficiency

== ENCOUNTER 2019-11-05 09:03 | Outpatient (RCR) | payer MEDICARE ==
[~2019-11-05 09:03] MED LIST changes: +LEVO250T12 PO; +OMEP1CAP73 PO; -OMEP20CA4 PO; +WARF-58 PO; +WARF-60 PO
== END 2019-11-14 ==
LOC: M PT 09:03
PROVIDERS: ATTEND Family Medicine
DX: Z47.89 Encounter for other orthopedic aftercare (principal)

== ENCOUNTER 2020-01-28 20:58 | Inpatient (IN) | payer MEDICARE ==
[~2020-01-28] VITALS: Ht 162.6 cm; Wt 128.8 kg
[2020-01-28 22:30] VITALS: BP 79/37
[2020-01-28 22:45] VITALS: BP 82/44
[2020-01-28 23:00] VITALS: BP 72/36
[2020-01-28] MEDS ORDERED: NS 500 ML IV ONE (23:15)
[2020-01-29] VITALS (37 sets, daily range): BP systolic 56–113; BP diastolic 25–75
[2020-01-29] MEDS ORDERED: MOXIFLOXACIN HCL 400 MG in IV 1 EA IV SCH ×2
[2020-01-29] MEDS: MIDODRINE 5 MG TAB PO SCH ×3 (00:12→15:34)
[2020-01-29] MEDS ORDERED: FLUC150T PO (00:15)
[2020-01-29] MEDS ORDERED: FLEEENE12 PR (00:15)
[2020-01-29] MEDS ORDERED: LASI20TA3 PO (00:15)
[2020-01-29] MEDS ORDERED: BENZ200C70 PO (00:15)
[2020-01-29] MEDS ORDERED: SYNT75TA PO (00:15)
[2020-01-29] MEDS ORDERED: HYDR25TAB PO (00:15)
[2020-01-29] MEDS ORDERED: GUAI100S51 PO (00:15)
[2020-01-29] MEDS ORDERED: POTA20TA6 PO (00:15)
[2020-01-29] MEDS ORDERED: [UNRECOGNIZED DRUG - CODE] SSP (00:15)
[2020-01-29] MEDS ORDERED: MIDO5TA PO (00:15)
[2020-01-29] MEDS ORDERED: CARV3.12 PO (00:15)
[2020-01-29] MEDS ORDERED: SPIR-10 PO (00:15)
[2020-01-29] MEDS ORDERED: BISA10SU27 PR (00:15)
[2020-01-29] MEDS ORDERED: ACET1TAB55 PO (00:15)
[2020-01-29] MEDS ORDERED: IPRA0.00 INH (00:15)
[2020-01-29] MEDS ORDERED: WARF4TAB51 PO (00:15)
[2020-01-29 00:16] LABS: HEMATOCRIT 36.9 % (36.0-47.0); HEMOGLOBIN 10.9 g/dl (12.0-15.5); MEAN CORPUSCULAR HGB CONC 29.5 g/dl (32.0-36.5); MEAN CORPUSCULAR VOLUME 88.1 fl (80.0-96.0); RED BLOOD COUNT 4.19 10^6/uL (4.00-5.40); WHITE BLOOD COUNT 9.8 10^3/uL (4.0-10.0)
[2020-01-29] MEDS ORDERED: MILKSUS3 PO (00:17)
[2020-01-29 00:25] LABS: INR 4.26; PROTHROMBIN TIME 41.1 SECONDS (11.8-14.0)
[2020-01-29 00:30] LABS: EOSINOPHILS 2 % (0-3); HYPOCHROMASIA 2+; LYMPHOCYTES 6 % (16-44); MONOCYTES 1 % (0-5); NEUTROPHILS 90 % (28-66); PLATELET ESTIMATE INVALID (NORMAL); TARGET CELLS 1+
[2020-01-29 00:31] LABS: ANISOCYTOSIS 2+; PLATELET CLUMPS SMALL AMT; POIKILOCYTOSIS 1+; POLYCHROMASIA 1+
[2020-01-29] MEDS ORDERED: BISACODYL 10 MG SUPP PR PRN (00:45)
[2020-01-29] MEDS ORDERED: FLEET ENEMA PR PRN (00:45)
[2020-01-29] MEDS ORDERED: SALIVA SUBSTITUTE(MOUTHKOTE) BTL MT PRN (00:45)
[2020-01-29] MEDS ORDERED: ALBUTEROL 90 MCG/ACT 8GM HFA INHALER INH PRN (00:45)
[2020-01-29] MEDS ORDERED: MOM 30ML SUSPENSION UDC PO PRN (00:45)
[2020-01-29 00:55] LABS: ALBUMIN 1.7 GM/DL (3.2-5.2); ALT/SGPT 19 U/L (12-78); BILIRUBIN,TOTAL 0.8 MG/DL (0.2-1.0); BLOOD UREA NITROGEN 38 MG/DL (7-18); CALCIUM LEVEL 7.8 MG/DL (8.8-10.2); CARBON DIOXIDE LEVEL 32 MEQ/L (21-32); CHLORIDE LEVEL 104 MEQ/L (98-107); CK-MB VALUE MASS 3.1 NG/ML (<3.6); CPK CREATINE PHOSPHOKINASE 82 U/L (26-192); CREATININE FOR GFR 1.48 MG/DL (0.55-1.30); GLOMERULAR FILTRATION RATE 35.7 (>32); GLUCOSE, FASTING 109 MG/DL (70-100); MB/CK RELATIVE INDEX 3.78 (< OR =4); NT-PRO BNP 4741 PG/ML (<450); POTASSIUM SERUM 5.7 MEQ/L (3.5-5.1); SODIUM LEVEL 138 MEQ/L (136-145); TOTAL PROTEIN 6.1 GM/DL (6.4-8.2); TROPONIN I < 0.02 NG/ML (< 0.10)
[2020-01-29 01:56] LABS: VENOUS BASE EXCESS 4.7 (-2.0-2.0); VENOUS O2 SATURATION 96.9 % (60.0-80.0); VENOUS PARTIAL PRESSURE CO2 54.4 mmHg (38.0-50.0); VENOUS PARTIAL PRESSURE O2 90.8 mmHg (30.0-50.0); VENOUS PH 7.374 UNITS (7.330-7.430); VENOUS STANDARD HCO3 28.7 MEQ/L; VENOUS TOTAL CO2 32.7 MEQ/L (24.0-28.0)
--- NOTE | 2020-01-29 02:03 | REPVR ---
PROCEDURE INFORMATION: Exam: XR Chest, 1 View Exam date and time: 01/29/2020 1:55 AM Age: 85 years old Clinical indication: Device placement; Other: Clp; Additional info: Central line placement TECHNIQUE: Imaging protocol: XR of the chest Views: 1 view. COMPARISON: CR PORTABLE CHEST X-RAY 01/28/2020 11:21 PM FINDINGS: Tubes, catheters and devices: A pacemaker from the left is unchanged. Interval placement of right internal jugular central line to the distal superior vena cava. Lungs: Left base infiltrate or atelectasis which is unchanged. Pleural space: Left pleural effusion which is unchanged. Heart/Mediastinum: Status post TAVR. The heart and mediastinum are unchanged. Bones/joints: Unremarkable. Soft tissues: Right chest wall surgical clips are unchanged. IMPRESSION: 1. Interval placement of right internal jugular central line to the distal superior vena cava since 01/28/2020. No pneumothorax. 2. Otherwise stable chest. Electronically signed by: Lazarus Bryson On 01/29/2020 02:03:35 AM
[2020-01-29] MEDS: NOREPINEPHRINE BITARTRATE 16 MG in D5W 484 ML IV SCH (02:17)
[2020-01-29] MEDS: DOXYCYCLINE HYCLATE 100 MG in D5W MINI-BAG PLUS 100 ML IV SCH ×2 (02:18→12:19)
--- NOTE | 2020-01-29 02:41 | REP ---
Clinical: Shortness of breath. Comparison: 08/04/2019. Findings: Examination is limited by portable technique, underpenetration, and poor inspiratory effort. The cardiac silhouette appears to be within normal limits. Pacemaker identified. Subtle perihilar opacity (left greater than right) cannot be excluded. No obvious effusion. No pneumothorax. Skeletal structures are grossly intact. Impression: Significantly limited examination. Cannot exclude subtle perihilar opacities and the possibility of underlying early CHF. Electronically Signed by Valentino Burton MD 01/29/2020 02:33 A
[2020-01-29] MEDS ORDERED: MORPHINE 2 MG/ML 1ML VIAL (J2270) As Ordered ONE (02:50)
[2020-01-29] MEDS: PIPERACILLIN/TAZOBACTAM SOD 3.375 GM in D5W MINI-BAG PLUS 50 ML IV SCH ×4 (02:59→18:01)
[2020-01-29] MEDS ORDERED: MORPHINE 2 MG/ML 1ML VIAL (J2270) IV ONE (03:00)
[2020-01-29] MEDS: FUROSEMIDE 40MG/4ML VIAL (J1940) IV SCH ×2 (03:16→08:29)
--- NOTE | 2020-01-29 04:26 | HPEPDOC ---
[facility] Medical History & Physical Date of Admission Jan 28, 2020 Date of Service: Jan 28, 2020 Primary Care Physician: Johan Birmingham MD Attending Physician: NAIN JONES MD History and Physical PRIMARY CARE PROVIDER: Johan Birmingham MD ATTENDING: Dr. Nain Jones CHIEF COMPLAINT: Chest pain HISTORY OF PRESENT ILLNESS: History is limited as patient is a poor historian. Patient is an 85 year old female presenting as a direct transfer from [facility] with chief complaint of chest pain and SOB. She apparently had [facility] an inpatient facility for CHF exacerbation and JOVANNY (Of note, while there she tested negative for COVID). Since that discharge patient was complaining of increased fluid retention on top of her chronic lymphedema with decreased urine output, and apparent bilateral flank pain, but no fevers. On 01/27/2020, she presented to [facility] with similar symptoms but also complaining of dyspnea/chest pain and was discharged home, but returned on 01/28/2020 complaining of worsening of the same symptoms. On arrival to [place] [facility] she rescinded her prior DNR/DNI code status and was found to be hypotensive, with mildly elevated lactic acidosis, elevated BNP of about 4000, UTI, a CXR showing left pleural effusion with possible infiltrate and was subsequently admitted to the hospital. She was given zosyn, albuterol nebulizer therapy, and was on 2 Liters nasal cannula while in [facility]. Patient's dyspneic symptoms were thought to be secondary to CHF exacerbation so she was given 40 mg IVP of lasix which dropped her pressure to 80/43 from SBP in 100s (baseline at jail is in 90s). In light of this change in code status and her worsening hypotension, the hospitalist determined it would be safer to transfer her to [facility] due to limitations at [facility] facilities. Presently, she has multiple complaints, but continues to go back to her constant left sided chest pain/pressure without radiation but denies nausea/vomiting. She also complains of hurting all over and feeling overall "like crap". She is not presently complaining of shortness of breath or suprapubic, flank, or abdominal pain. 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 fib CAD Congestive heart failure, LVEF 50%, last echo 07/2019. GERD COPD Hypothyroidism PAST SURGICAL HISTORY: Appendectomy Cardiac stents Cholecystectomy D&C Call her surgery Pacemaker SOCIAL HISTORY: Never smoker, denies ankle use, denies marijuana, heroin, cocaine, PCP use. FAMILY HISTORY: Non-contributory to chief complaint. Father secondary to u nknown metastatic cancer ALLERGIES: Please see below. REVIEW OF SYSTEMS: GENERAL: Denies fevers, chills, recent unexpected weight change, night sweats, hemoptysis HEENT: Denies headache, dizziness, vision changes, hearing loss, sore throat CARDIOVASCULAR: Denies palpitations, orthopnea. Admits to chest pain. RESPIRATORY: Denies wheezing, admits to sob and non-productive cough. GASTROINTESTINAL: denies nausea, vomiting, abdominal pain, constipation, diarrhea, bloody stool GENITOURINARY: Denies dysuria,urinary urgency, hematuria. MUSCULOSKELETAL: Denies muscle/joint pain, weakness, stiffness NEUROLOGICAL: Denies any numbness/tingling, focal weakness, or syncope HOME MEDICATIONS: Please see below. PHYSICAL EXAMINATION: Vitals: (see below) General: Morbidly obese female who appears stated age in mild-moderate distress, laying in bed. HEENT: Normocephalic, atraumatic. EOMI. No scleral icterus. Moist mucous membranes. No pharyngeal erythema or uvular deviation. Neck: JVD difficult to assess but no appreciable JVD on exam Cardiac: distant heart sounds, regular rate, S1 and S2 present, No murmurs appreciated on exam. Pulm: Diminished breath sounds bilaterally with faint crackles in bilateral lung bases R>L. No wheezing, rhonchi Abd: Bowel Sounds present. Obese abdomen soft, non-tender to palpation with distraction, non-distended. No masses or eccymosis. Ext: Anasarca throughout all 4 extremities with 2+ pitting edema, worse in bilateral lower extremities. Distal fingers are dusky in appearance. Neuro: CN 3-12 grossly intact. No focal neurologic deficits. LABORATORY DATA: See below. IMAGIN01/28/2020 CXR: Impression significantly limited examination. Cannot exclude subtle perihilar opacities and the possibility of underlying early CHF. 01/29/2020 CXR: Impression: 1. Interval placement of right IJ central line to the distal superior vena cava since 01/28/2020. No pneumothorax. 2. Left base infiltrate or atelectasis which is unchanged. 3. Left pleural effusion which is unchanged. MICROBIOLOGY: Please see below. ASSESSMENT/PLAN: Patient's history largely obtained from [facility] notes as patient will not cooperate with exam or questioning as she is unable to detail a history of illness of of her symptomatology because she states everything hurts. However patient is an 85 year old female presenting with worsening dyspnea and findings consistent with CAP and CHF exacerbation. #. Community acquired pneumonia -Difficult to discern because of left-pleural effusion whether or not an infiltrate is present on exam. Will start patient on Doxycycline and Zosyn as patient has had multiple positive pseudomonas blood cultures in the past that have been sensitive to these two medications. #. Septic Shock -While patient is not technically SIRS positive, she does exhibit signs of end organ dysfunction as she has 2 possible sources of infection, lactic acidosis, decreased urine output, has had worsening hypotension since arrival at [facility] and has been unresponsive to fluids and necessitating vasopressor support. - Patient on antibiotic therapy to cover for typical, atypical, and previously positive blood and urine cultures sensitivity findings. #. Acute on chronic congestive heart failure -It is difficult to appreciate on physical exam or by history what her volume status is as she seems to be chronically edematous with echo findings detailed below that prompt caution in giving IVF in light of her heart failure. Initially we gave a small 250 cc fluid bolus and patient's home midodrine without any effect and eventual worsening blood pressure necessitating central line placement. - No baseline for patient's BNP, but it is the highest it has ever been at 4741, as such and now that we are better able to give diuretics we will trial 40 mg IV lasix and repeat this in 8 hours. -Last echo from 07/2019 showing LVEF of 50% w/ "prominently dilated right heart chambers and left atrium, right ventricular free wall hypokinesis, and evidence of severe pulmonary hypertension. Severe mitral annular calcification with moderate obstruction and mild mitral insufficiency. Overall severe pulmonary hypertension and non-correctable right heart failure". #. UTI -Patient has chronic indwelling meredith catheter and was complaining of bilateral flank pain at [facility]. Here she complained of pain all over so I suspect her positive UA was the result of her indwelling meredith rather than an actual UTI. Nevertheless, the doxycycline and zosyn should cover her based on most common organisms and prior culture sensitivities. Repeat UTI done here at [facility] positive as well, will await sensitivities. #. Chest pressure -EKG's done at [facility] on arrival are of poor quality and repeat attempts have yielded similar results, but she seems to have a LBBB that is unchanged from EKG's done at [place] or here at [facility] in the past. - Troponin at [facility] negative, initial troponin here negative. Repeating troponin as patient stating new onset worsening of her chest pressure. #. CKD stage III -Patient's baseline creatinine is 1.15 with mild kidney injury. Will continue to monitor renal function as we give lasix. Holding nephrotoxic agents. #. Hyperkalemia -Patient's potassium at [facility] was 4.5, I suspect this may be a hemolyzed specimen especially since she has also received lasix since then. #. Atrial fibrillation -Initial INR supratherapeutic at 4.26, will hold AM dose. May be interaction with home fluconazole. #. Normocytic anemia -Close to baseline, but will order iron studies to be certain #. Questionable hx of Type 2 diabetes - Patient does not appear to be on any diabetes medication outpatient, last A1C in 2018 of 6.5%. reordering A1C. #. Hypothyroidism - Continue home Synthroid - Will recheck TSh/FT4 #. Atrial Fibrillation -Continue home warfarin, but hold 01/29/2020 dose as patient is supratherapeutic. - Continue Coreg rate control with hold parameters #. GERD -Continue home omeprazole #. Yeast infection? -Patient on outpatient fluconazole with stop date of 02/03/2020 #. COPD -Albuterol MDI as needed. -DVT prophy: Coumadin HOSPITALIST ATTENDING PHYSICIAN ADDENDUM: I have independently interviewed and examined the patient at the bedside, and agree with the aforementioned management plans and physical findings as documented by my Resident Physician. The patient's questions and concerns have been satisfactorily addressed, and the patient was encouraged to contact the hospitalist service for any new issues. Laboratory Data Labs 24H Laboratory Tests 2 01/28/20 23:45: Neutrophils (%) (Auto) , Nucleated Red Blood Cells % (auto) 0.0, Prothrombin Time 41.1H, Prothromb Time International Ratio 4.26 CBC/BMP Laboratory Tests 01/28/20 23:45 Microbiology Microbiology 01/28/20 Blood Culture, Received Pending Home Medications Scheduled Benzonatate (Benzonatate) 200 Mg Capsule, 200 MG PO BID Carvedilol (Carvedilol) 3.125 Mg Tablet, 3.125 MG PO BID HOLD FOR BP LESS THAN 100 SYSTOLIC OR LESS THAN 60 BPM Fluconazole (Fluconazole) 150 Mg Tablet, 150 MG PO DAILY END ON 02/03/20 Furosemide (Lasix) 20 Mg Tablet, 20 MG PO DAILY Hydrochlorothiazide (Hydrochlorothiazide) 25 Mg Tablet, 25 MG PO DAILY DO NOT GIVE IF SBP IS LOWER THAN 100MMHG Levothyroxine Sodium (Synthroid) 75 Mcg Tablet, 75 MCG PO DAILY Midodrine HCl (Midodrine HCl) 5 Mg Tablet, 5 MG PO WM Omeprazole (Omeprazole) 20 Mg Cap, 20 MG PO DAILY Potassium Chloride (Potassium Chloride) 20 Meq Tab.er.prt, 20 MEQ PO BID Spironolactone (Spironolactone) 25 Mg Tablet, 25 MG PO BID Warfarin Sodium (Warfarin Sodium) 2 Mg Tablet, 2 MG PO QPM Scheduled PRN Acetaminophen (Acetaminophen) 325 Mg Tablet, 650 MG PO Q6H PRN for PAIN Albuterol Sulf (Albuterol Sulfate) 2.5 Mg/3 Ml Nebu, 1 VIAL INH Q4H PRN for SHORTNESS OF BREATH Bisacodyl (Bisacodyl) 10 Mg Supp.rect, 10 MG CA DAILY PRN for CONSTIPATION Guaifenesin (Guaifenesin) 100 Mg/5 Ml Liquid, 10 ML PO Q6H PRN for COUGH Ipratropium/Albuterol Sulfate (Iprat-Albut 0.5-3(2.5) mg/3 ml) 3 Ml Ampul.neb, 1 VIAL INH Q4H PRN for SOB/WHEEZING Magnesium Hydroxide (Milk of Magnesia) 400 Mg/5 Ml Oral.susp, 30 ML PO DAILY PRN for CONSTIPATION Saliva Substitute Combo No.9 (Biotene Pbf) 473 Ml Mouthwash, 30 ML SSP QID PRN for DRY MOUTH Sodium Phosphate,Luquillo-Dibasic (Fleet Enema) 133 Ml Enema, 1 SANTI CA DAILY PRN for CONSTIPATION Allergies Coded Allergies: dirithromycin (Verified Allergy, Intermediate, hives, 01/08/19) Sulfa (Sulfonamide Antibiotics) (Verified Allergy, Unknown, 01/08/19) Penicillins (Verified Adverse Reaction, Intermediate, tachycardia 40 yrs ago, 01/08/19) A-FIB/CHADSVASC A-FIB History Current/History of A-Fib/PAF?: Yes Current PO Anticoag Therapy: Yes Age/Risk Factor Scoring CHADSVASC: CHADSVASC Response (Comments) Value Age Risk Factor Age >/= 75 years old 2 Gender Risk Factor Female 1 Hx of CHF Yes 1 Hx of HTN No 0 Hx of Stroke/TIA/or VTE No 0 Hx of Diabetes Yes 1 Hx of Vascular Disease Yes 1 Total 6 Treatment Treatment ordered: Warfarin GME ATTESTATION GME ATTESTATION My faculty preceptor for this patient encounter was physically present during the encounter and was fully available. All aspects of the patient interview, examination, medical decision making process, and medical care plan development were reviewed and approved by the faculty preceptor. The faculty preceptor is aware and concurs with the plan as stated in the body of this note and will attest to such by his/her cosignature. VIET NEGRETE DO Jan 29, 2020 01:37 NAIN JONES MD Jan 29, 2020 22:04
[2020-01-29 05:22] LABS: HEMATOCRIT 35.8 % (36.0-47.0); HEMOGLOBIN 10.8 g/dl (12.0-15.5); MEAN CORPUSCULAR HEMOGLOBIN 25.8 pg (27.0-33.0); MEAN CORPUSCULAR HGB CONC 30.2 g/dl (32.0-36.5); MEAN CORPUSCULAR VOLUME 85.6 fl (80.0-96.0); RED BLOOD COUNT 4.18 10^6/uL (4.00-5.40); WHITE BLOOD COUNT 14.5 10^3/uL (4.0-10.0)
[2020-01-29 05:32] LABS: PROTHROMBIN TIME 48.2 SECONDS (11.8-14.0)
[2020-01-29 05:38] LABS: PLATELET COUNT, AUTOMATED 84 10^3/uL (150-450)
[2020-01-29 05:55] LABS: PERCENT SATURATION 13.1 % (13.2-45.0)
[2020-01-29 06:02] LABS: HEMOGLOBIN A1c 7.1 %
[2020-01-29] MEDS: LEVOTHYROXINE 75MCG TABLET (0.075MG) PO SCH (06:04)
[2020-01-29] MEDS: ACETAMINOPHEN TAB 650MG DOSE (2X325MG) PO PRN ×3 (06:07→18:03)
[2020-01-29 06:25] LABS: BLOOD UREA NITROGEN 39 MG/DL (7-18); CALCIUM LEVEL 7.8 MG/DL (8.8-10.2); CARBON DIOXIDE LEVEL 33 MEQ/L (21-32); CHLORIDE LEVEL 103 MEQ/L (98-107); CPK CREATINE PHOSPHOKINASE 30 U/L (26-192); CREATININE FOR GFR 1.42 MG/DL (0.55-1.30); FREE T4 1.36 NG/DL (0.76-1.46); GLOMERULAR FILTRATION RATE 37.4 (>32); GLUCOSE, FASTING 134 MG/DL (70-100); POTASSIUM SERUM 4.3 MEQ/L (3.5-5.1); SODIUM LEVEL 138 MEQ/L (136-145); TROPONIN I < 0.02 NG/ML (< 0.10)
[2020-01-29 06:30] LABS: INR 5.19
[2020-01-29] MEDS ORDERED: MIDODRINE 5 MG TAB PO SCH (08:00)
[2020-01-29] MEDS: CARVedilol 3.125 MG TAB PO SCH ×2 (08:49→21:48)
[2020-01-29] MEDS: OMEPRAZOLE 20 MG CAP PO SCH (09:18)
--- NOTE | 2020-01-29 09:18 | RO ---
DATE OF PROCEDURE: 01/29/2020 PROCEDURE: Right internal jugular central line. PREOPERATIVE DIAGNOSIS: POSTOPERATIVE DIAGNOSIS: PROCEDURE JACKET PREPARER: Simon Monaco DO ATTENDING PHYSICIAN: Neri Sawant DO, was in attendance. INDICATION: Hypotension. CONSENT: Was obtained from the patient prior to the procedure. Indications, risks, and benefits were explained at length. PROCEDURE SUMMARY: A time-out was performed. My hands were washed immediately prior to the procedure. I wore a surgical cap, mask with protective eyewear, full gown, and sterile gloves throughout the procedure. The patient was placed in Trendelenburg position. The right neck area was prepped using chlorhexidine scrub and draped in sterile fashion using a full drape and sterile probe cover-employed. The medial and lateral heads of the sternocleidomastoid muscle were identified, as was the carotid pulse. The internal jugular vein was identified using ultrasound. Anesthesia was achieved over the vein using 1% lidocaine. Using ultrasound guidance, the introducer needle was inserted into the internal jugular vein under direct ultrasound visualization. Venous blood was withdrawn. The syringe was removed, and a guidewire was advanced into the introducer needle. A small incision was made at the skin surface with a scalpel, and the introducer needle was exchanged for a dilator over the guidewire. After appropriate dilation was obtained, the dilator was exchanged over the wire for a central venous catheter. The wire was removed, and the catheter was sutured in place. A sterile SorbaView shield was placed over the catheter at the insertion site. The patient tolerated the procedure without any hemodynamic compromise. At the time of procedure completion, all ports aspirated and flushed properly. A postprocedure chest x-ray was performed showing the tip of the central line visualized distal to the superior vena cava. No pneumothorax. ESTIMATED BLOOD LOSS: 15 mL.
[2020-01-29] MEDS: FLUCONAZOLE 50MG TABLET PO SCH (09:20)
[2020-01-29] MEDS: BENZONATATE 100 MG CAP PO SCH ×2 (12:19→21:44)
--- NOTE | 2020-01-29 13:38 | ECGEPIP ---
[facility] Test Date: 2020-01-28 Pat Name: NEISHA DE SANTIAGO Department: Room: [place] [address] Gender: Female Shop Lead: : 1935 Requested By: NAIN Leigh Order Number: [id number] Reading MD: Сергей Ramirez Measurements Intervals [place] Rate: 69 P: ME: 0 QRS: -33 QRSD: 172 T: 150 QT: 470 QTc: 506 Interpretive Statements AV sequential paced rhythm at 69 bpm. No significant change compared with 08/04/2019. Electronically Signed on 01-29-2020 13:37:44 EDT by Сергей Ramirez
--- NOTE | 2020-01-29 13:41 | ECGEPIP ---
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 No significant change compared with 01/28/2020 at 2341 hrs. FYI:ECG interpretation from ECG 01/28/2020 at 2341 was incorrect; that ECG interpretation should be atrial fibrillation, ventricular paced rhythm at 69 bpm. Electronically Signed on 01-29-2020 13:41:04 EDT by Сергей Ramirez
[2020-01-29] MEDS ORDERED: WARFARIN SOD 2 MG TAB PO SCH (17:00)
[2020-01-29] MEDS: NYSTATIN 100,000 UNITS/GM TOPICAL PWD 15 GM TOP SCH (18:03)
--- NOTE | 2020-01-29 18:54 | REP ---
HISTORY: Followup. COMPARISON: Multiple, the latest earlier today. The technique utilized in obtaining the radiograph has magnified the cardiac silhouette and accentuated the interstitial markings. There is an unchanged opacity in the left lower lobe silhouetting out the left heart border and diaphragmatic surface of the left lung. The pacemaker device is unchanged. There is a central venous catheter which is unchanged, the tip remaining in the superior vena cava. There are no change in the lung yao. There are no new abnormal opacities. The right pleural angle remains sharp. There is no change in the osseous structures. IMPRESSION: No significant change compared to the prior exam. Electronically Signed by Bello Hernandez DO 01/29/2020 07:22 P
[2020-01-29] MEDS ORDERED: FUROSEMIDE 40MG/4ML VIAL (J1940) IV ONE (23:45)
[2020-01-30] VITALS (80 sets, daily range): BP systolic 57–148; BP diastolic 31–98
--- NOTE | 2020-01-30 00:02 | ECHO ---
DATE OF PROCEDURE: 01/29/2020 REFERRING PHYSICIAN: Dr. Simon Monaco INDICATION: Congestive heart failure, unspecified. HEIGHT: 5 feet 4 inches. WEIGHT: 286 pounds, 10 ounces. 2D MEASUREMENTS: Aortic root: 2.6 cm Left atrium: 4.6 cm Ventricular septum: 1.2 cm Posterior wall: 1.3 cm Left ventricle diastole: 3.6 cm LVOT: 2.1 cm Inferior vena cava: 2.2 cm with marked reduction of respiratory variation. DOPPLER MEASUREMENTS: Aortic valve velocity: 248 cm/s LVOT velocity: 132 cm/s LVOT VTI: 26.8 cm No aortic stenosis. No aortic regurgitation. Moderate mitral regurgitation. Mild mitral stenosis. Mitral E velocity (CW): 2.0 cm/s Mean mitral valve gradient: 6 mmHg Mitral valve area (pressure half time method): 1.20 cm squared Moderate tricuspid regurgitation. Estimated right ventricle systolic pressure: At least 93 mmHg assuming a pressure of at least 20 mmHg. Very mild pulmonic regurgitation. MITRAL ANNULAR TISSUE DOPPLER: E prime lateral: 8.8 cm/s E prime septal: 6.0 cm/s DESCRIPTION: Rhythm was ventricular paced at 70 beats per minute Underlying atrial fibrillation. Image quality was fair. CONCLUSIONS: 1. Very severe elevation of estimated right ventricle systolic pressure (at least 93 mmHg). At least mild right ventricle dilatation. Preserved overall right ventricle systolic function by visual impression. Partial flattening of the ventricular septum in keeping with both pressure and volume overload of the right ventricle. At least moderate right atrial dilatation. Structurally normal appearing tricuspid leaflets. Moderate tricuspid regurgitation. 2. Inferior vena cava plethora with marked reduction of respiratory variation, suggestive of elevated central venous pressure of at least 20 mmHg. 3. Large left pleural effusion. 4. No pericardial effusion. 5. Mild concentric left ventricle hypertrophy. Mild paradoxical septal motion. Hyperdynamic LV systolic function. Left ventricular ejection fraction (LVEF) 75% by visual estimate. 6. Well seated and structurally and functionally normal TAVR aortic valve bioprosthesis. No aortic stenosis or regurgitation. 7. Severe mitral annular calcification. Mild mitral stenosis. Moderate mitral regurgitation. 8. At least mild left atrial dilatation. 9. Cardiac rhythm management leads identified in the right side of the heart. Results of this echocardiogram Doppler were communicated verbally by cell phone to Dr. Simon Monaco, approximately 10 or 15 minutes prior to this report being dictated into the system.
[2020-01-30] MEDS: DOXYCYCLINE HYCLATE 100 MG in D5W MINI-BAG PLUS 100 ML IV SCH ×2 (00:13→12:21)
[2020-01-30] MEDS: FUROSEMIDE injection 250 MG in D5W 225 ML IV SCH ×3 (00:23→20:30)
[2020-01-30] MEDS: PIPERACILLIN/TAZOBACTAM SOD 3.375 GM in D5W MINI-BAG PLUS 50 ML IV SCH ×4 (01:16→18:20)
[2020-01-30] MEDS ORDERED: POTASSIUM CHLORIDE 10 MEQ SR TABLET PO ONE (01:45)
[2020-01-30] MEDS: NOREPINEPHRINE BITARTRATE 16 MG in D5W 484 ML IV SCH ×2 (02:09→17:05)
[2020-01-30] MEDS: LEVOTHYROXINE 75MCG TABLET (0.075MG) PO SCH (06:09)
[2020-01-30 06:11] LABS: HEMATOCRIT 35.4 % (36.0-47.0); MEAN CORPUSCULAR HEMOGLOBIN 26.1 pg (27.0-33.0); MEAN CORPUSCULAR HGB CONC 31.1 g/dl (32.0-36.5); MEAN CORPUSCULAR VOLUME 83.9 fl (80.0-96.0); RED BLOOD COUNT 4.22 10^6/uL (4.00-5.40); WHITE BLOOD COUNT 16.2 10^3/uL (4.0-10.0)
[2020-01-30 06:12] LABS: PLATELET COUNT, AUTOMATED 70 10^3/uL (150-450)
[2020-01-30 06:15] LABS: ALBUMIN 1.6 GM/DL (3.2-5.2); ALT/SGPT 15 U/L (12-78); BILIRUBIN,TOTAL 0.8 MG/DL (0.2-1.0); BLOOD UREA NITROGEN 37 MG/DL (7-18); CALCIUM LEVEL 7.7 MG/DL (8.8-10.2); CARBON DIOXIDE LEVEL 36 MEQ/L (21-32); CHLORIDE LEVEL 103 MEQ/L (98-107); CREATININE FOR GFR 1.49 MG/DL (0.55-1.30); GLOMERULAR FILTRATION RATE 35.4 (>32); GLUCOSE, FASTING 157 MG/DL (70-100); POTASSIUM SERUM 4.3 MEQ/L (3.5-5.1); SODIUM LEVEL 136 MEQ/L (136-145); TOTAL PROTEIN 5.8 GM/DL (6.4-8.2)
[2020-01-30 06:28] LABS: PROTHROMBIN TIME 47.3 SECONDS (11.8-14.0)
[2020-01-30 06:34] LABS: INR 5.07
[2020-01-30] MEDS: CARVedilol 3.125 MG TAB PO SCH (08:36)
[2020-01-30] MEDS: FLUCONAZOLE 50MG TABLET PO SCH (08:59)
[2020-01-30] MEDS: MIDODRINE 5 MG TAB PO SCH ×2 (08:59→17:05)
[2020-01-30] MEDS: OMEPRAZOLE 20 MG CAP PO SCH (08:59)
[2020-01-30] MEDS: BENZONATATE 100 MG CAP PO SCH ×2 (09:00→20:03)
[2020-01-30] MEDS: NYSTATIN 100,000 UNITS/GM TOPICAL PWD 15 GM TOP SCH ×2 (09:03→20:05)
[2020-01-30] MEDS: ACETAMINOPHEN TAB 650MG DOSE (2X325MG) PO PRN (09:11)
[2020-01-30] MEDS ORDERED: VANCOMYCIN HCL 500 MG in D5W MINI-BAG PLUS 100 ML IV SCH (12:30)
--- NOTE | 2020-01-30 12:45 | IPNPDOC ---
Subjective Date Seen The patient was seen on 01/30/20. Subjective Chief Complaint/HPI Patient is still complaining of pain all over the body and this still is short of breath Constitutional: Denies: Chills, Fever, Malaise, Night Sweats, Weakness, Fatigue, Weight Loss, Lethargy, Other Eyes: Denies: Pain, Vision change, Conjunctivae inflammation, Eyelid inflammation, Redness, Other Pulmonary: Reports: Dyspnea Cardiovascular: Denies: Chest Pain, Palpitations, Orthopnea, Paroxysmal Noc. Dyspnea, Edema, Lt Headedness, Other Symptoms Gastrointestinal: Denies: Nausea, Vomiting, Abdominal Pain, Diarrhea, Constipation, Melena, Hematochezia, Other Symptoms Genitourinary: Denies: Dysuria, Frequency, Incontinence, Hematuria, Retention, Other Symptoms Musculoskeletal: Reports: Other Symptoms (body pain) Neurological: Denies: Weakness, Numbness, Incoordination, Change in speech, Confusion, Seizures, Other Symptoms Objective Physical Examination General Exam: Positive: Alert, Cooperative Eye Exam: Positive: PERRLA, Conjunctiva & lids normal ENT Exam: Positive: Atraumatic Neck Exam: Positive: Supple Chest Exam: Positive: Other (, crackles bilaterally with decreased breath sounds bilaterally) Heart Exam: Positive: Rate Normal, Normal S1, Normal S2 Abdomen Exam: Positive: Normal bowel sounds, Soft Skin Exam: Positive: Nl turgor and temperature Neuro Exam: Positive: Strength at 5/5 X4 ext, Sensation Intact, Cranial Nerves 3-12 NL Psych Exam: Positive: Anxiety, Oriented x 3 Assessment /Plan Problems (1) Sepsis Status: Acute Problem Text: Sepsis with shock/hypotension , most likely multifactorial. Patient does have also diagnosis of pneumonia and UTI and possible fungal infection of urine Patient was admitted to ICU for close management Patient was unresponsive to fluids. Hence vasopressor was started. Patient is currently currently on Levophed 15 micrograms, but is still hypotensive Patient was started on Zosyn and doxycycline, I'll DC doxycycline and is started. Vancomycin 500 mg IV every 12 hours for broad-spectrum coverage Also will add Diflucan 100 mg IV every 24 hours for indications of fungal i nfection and UA and urine cultures Continue critical care support, critical care consult with Dr. Fish has been requested Further recommendation as per critical care attending (2) Community acquired pneumonia Status: Acute Problem Text: On chest x-ray. Patient doesn't have an opacity at the left lower lung, most likely pneumonia WBC count still high 16.2, even though patient is afebrile Will DC doxycycline added vancomycin along with Zosyn and Diflucan Follow CBC, CMP in a.m. Supportive care (3) UTI (urinary tract infection) Status: Acute Problem Text: UA shows fungal-like organisms and urine cultures also consistent with fungal-like organisms Diflucan has been started Will follow clinically (4) Acute on chronic diastolic (congestive) heart failure Status: Acute Problem Text: Patient had a stat echo done last night which showed EF of 75% with very increased right ventricular pressure of 93, consistent with severe pulmonary hypertension Discussed with Dr. Ramirez over the phone, he recommends to continue diuresis with Lasix. Patient's CVP pressure was 15, but will continue Lasix secondary to persistent shortness of breath, severe bipedal edema and crackles in lung and will clinically and adjust the dosage are stopped diuresis depending on patient response to clinical therapy As per Dr. Ramirez patient has poor prognosis and nothing else further can be offered at this point except aggressive diuresis (5) HTN (hypertension) Status: Chronic Problem Text: All antihypertensive meds on hold secondary to septic shock (6) HLD (hyperlipidemia) Status: Chronic Problem Text: Continue home meds (7) Moderate to severe pulmonary hypertension Status: Chronic Problem Text: As above (8) Atrial fibrillation Status: Chronic Problem Text: Coumadin on hold because of supratherapeutic INR Continue home meds. His vent rate is under control (9) Diabetes Status: Chronic Problem Text: Fingerstick blood sugar every 6 hours and at bedtime with co verage (10) Morbid obesity Status: Chronic Problem Text: History of morbid obesity with BMI of 49 On consistent carbohydrate diet Plan/VTE VTE Prophylaxis Ordered?: Yes VS, I&O, 24H, Fishbone Vital Signs/I&O Vital Signs Date Time Temp Pulse Resp B/P (MAP) Pulse Ox O2 Delivery O2 Flow Rate FiO2 01/30/20 09:15 90/49 (63) 01/30/20 09:00 70 26 99 Nasal Cannula 2.0 01/30/20 08:00 97.7 I&O- Last 24 Hours up to 6 AM 01/30/20 06:00 Intake Total 986.95 ml Output Total 1850 ml Balance -863.05 ml Laboratory Data 24H LABS Laboratory Tests 2 01/29/20 18:05: Bedside Glucose (Misc Panel) 135H 01/30/20 05:39: Nucleated Red Blood Cells % (auto) 0.5H, Immature Platelet Fraction 7.5, Prothrombin Time 47.3H, Prothromb Time International Ratio 5.07*H, Anion Gap , Glomerular Filtration Rate 35.4, Calcium Level 7.7L, Total Bilirubin 0.8, Aspartate Amino Transf (AST/SGOT) 23, Alanine Aminotransferase (ALT/SGPT) 15, Alkaline Phosphatase 147H, Total Protein 5.8L, Albumin 1.6L, Albumin/Globulin Ratio 0.38L CBC/BMP Laboratory Tests 01/30/20 05:39 Microbiology Microbiology 01/29/20 Urine Culture - Final, Complete Yeast Like Organism 01/29/20 Respiratory Virus Panel (PCR) ([place]) - Final, Complete 01/28/20 Blood Culture - Preliminary, Resulted No growth after 24 hours . All specim... LEIDY YOUSIF MD Jan 30, 2020 12:45
[2020-01-30] MEDS: DOBUTamine HCL 500,000 MCG in IV 1 EA IV SCH (12:59)
[2020-01-30] MEDS ORDERED: VANCOMYCIN HCL 1,000 MG, VIAL MATE ADAPTER 1 EACH in D5W 250 ML IV SCH (14:00)
--- NOTE | 2020-01-30 14:16 | PHACANCOPD ---
PHARMACY VANCOMYCIN DOSING Pt Demographics Demographics Patient Age:85 , Weight:129.500 , Gender: female Adjusted Body Weight Date: 01/30/20, Adjusted Body Weight: Kg Events Past 24 Hours Events Past 24 Hours: YES: Elevation in WBC Vancomycin Vancomycin Target Ranges: 15-20 mcg/ml Vancomycin Load Y/N: Yes Load Dose Date Time Vancomycin Load Dose: 2 GM Date: 01/30/20 Time: 1400 Vancomycin Dose Date: 01/30/20. Current Vancomycin Dose: [1500 MG IV Q24H] Intermittent Dosing?: No Labs Micro Microbiology 01/29/20 Urine Culture - Final, Complete Yeast Like Organism 01/29/20 Respiratory Virus Panel (PCR) ([place]) - Final, Complete 01/28/20 Blood Culture - Preliminary, Resulted No growth after 24 hours . All specim... Creatinine Clearance Date:01/30/20. Creatinine Clearance: . Assessment and Plan Maintaining Current Dose?: Yes Reason for dose change: No Dose Change Pharmacist Note Pharmacist Note Date: 01/30/20. Pharmacist note: Pharmacy consulted for dosing of Vancomycin for treatment of Community Acquired Pneumonia with a goal trough of 15-20 mcg/ml. Patient does not have a history of MRSA here at [facility]. MRSA PCR has been ordered. We'll load her with 2 grams and follow with 1500 mg q24h. Pharmacy will continue to monitor and make adjustments as needed. [facility] Jan 30, 2020 14:16
[2020-01-30] MEDS ORDERED: VANCOMYCIN HCL 1,000 MG, VIAL MATE ADAPTER 1 EACH in D5W 250 ML IV ONE (15:00)
--- NOTE | 2020-01-30 17:31 | CCN ---
DATE OF SERVICE: 01/30/2020 I was called to evaluate this 85-year-old female in the intensive care unit because of persistent hypotension despite pressor therapy. On review of the patient's records, she has an extensive past medical history, including obstructive sleep apnea syndrome, obesity, hypertension, nonrheumatic heart disease with aortic valve sclerosis, and stenosis status post transcatheter aortic valve replacement (TAVR) procedure November 2013 complicated by heart block requiring a dual-chamber pacemaker, chronic atrial fibrillation. The patient was transferred here last evening from [facility], where she presented for evaluation. She was given Lasix there, and her blood pressure fell. Since arrival, she has had a central line placed. Elevated central venous pressures were measured and additional diuretics administered. She has been started on pressor therapy, and dose of pressors required to maintain a mean arterial pressure of 65 has been progressively increasing. At bedside, her temperature is 97.7, pulse rate 70, respirations 26, blood pressure was 90/49. HEENT: Oral and nasal mucosa are pink. No stridor over the trachea. Jugular veins are unable to be appreciated. Heart sounds are distant and paced. Breath sounds absent in the left base, coarse in the right. No other focal sounds. Abdomen is obese. The patient is anasarcic with edema and dressed wounds on her extremities: Pulses are difficult to appreciate. DIAGNOSTIC STUDIES: Chest x-ray shows a large left pleural effusion and a very large heart shadow, a pacemaker in situ. Her white cell count is 16.2, hemoglobin 11, hemoglobin 35.5, platelet count 70,000. Sodium 136, potassium 4.3, chloride 103, CO2 of 36, BUN 37, creatinine 1.49, glucose 152. INR is 5.07. Venous gas was done with pH of 7.37, pCO2 of 54, pO2 of 96. EKG shows atrial fibrillation, ventricularly paced at 69. Echocardiogram shows moderate mitral regurgitation, tricuspid regurgitation, and a right ventricular systolic pressure of 93. The primary problem requiring critical attention is cardiogenic shock with acute on chronic pulmonary hypertension. We will add dobutamine in an effort to improve cardiac output and increase diuresis. I agree with intravenous (IV) Lasix and targeting diuresis as blood pressure allows. The patient is anasarcic and in massive fluid overload. There is a left pleural effusion. This may need to be drained at some point. The patient is not sufficiently clinically stable at this point to allow for it. Thrombocytopenia is of unclear etiology. Will continue following her platelet count. INR is elevated, no doubt be because of hepatic congestion from her heart failure. The case was discussed with cardiology, who indicate that her prognosis is very poor. There was 1 hour and 27 minutes spent in the provision of bedside critical care coordination, exclusive of any procedure time.
[2020-01-31] VITALS (18 sets, daily range): BP systolic 84–109; BP diastolic 48–61
[2020-01-31] MEDS ORDERED: POTASSIUM CHLORIDE 10 MEQ SR TABLET PO ONE (00:30)
[2020-01-31] MEDS: PIPERACILLIN/TAZOBACTAM SOD 3.375 GM in D5W MINI-BAG PLUS 50 ML IV SCH ×2 (01:01→06:07)
[2020-01-31] MEDS: DOBUTamine HCL 500,000 MCG in IV 1 EA IV SCH (03:03)
[2020-01-31] MEDS: NOREPINEPHRINE BITARTRATE 16 MG in D5W 484 ML IV SCH (03:29)
[2020-01-31] MEDS: LEVOTHYROXINE 75MCG TABLET (0.075MG) PO SCH (06:07)
[2020-01-31 06:26] LABS: BASO # 0.1 10^3/uL (0.0-0.2); BASO % 0.4 % (0.0-1.0); EOS # 0.6 10^3/uL (0.0-0.5); EOS % 5.1 % (0.0-3.0); HEMATOCRIT 32.9 % (36.0-47.0); HEMOGLOBIN 10.4 g/dl (12.0-15.5); LYMPH % 7.9 % (24.0-44.0); MEAN CORPUSCULAR HEMOGLOBIN 26.5 pg (27.0-33.0); MEAN CORPUSCULAR HGB CONC 31.6 g/dl (32.0-36.5); MEAN CORPUSCULAR VOLUME 83.7 fl (80.0-96.0); MONO # 0.7 10^3/uL (0.0-0.8); MONO % 5.5 % (0.0-5.0); NEUTROPHILS # 9.9 10^3/uL (1.5-8.5); NEUTROPHILS % 80.5 % (36.0-66.0); RED BLOOD COUNT 3.93 10^6/uL (4.00-5.40); WHITE BLOOD COUNT 12.3 10^3/uL (4.0-10.0)
[2020-01-31 06:27] LABS: PLTBLUE- EDTA FREE CALC 43 K/mm3 (172-450)
[2020-01-31 06:37] LABS: ALBUMIN 1.5 GM/DL (3.2-5.2); ALT/SGPT 13 U/L (12-78); BILIRUBIN,TOTAL 0.7 MG/DL (0.2-1.0); BLOOD UREA NITROGEN 36 MG/DL (7-18); CALCIUM LEVEL 7.5 MG/DL (8.8-10.2); CARBON DIOXIDE LEVEL 36 MEQ/L (21-32); CHLORIDE LEVEL 101 MEQ/L (98-107); CHOLESTEROL LEVEL 115 MG/DL (< 200); CPK CREATINE PHOSPHOKINASE 25 U/L (26-192); CREATININE FOR GFR 1.47 MG/DL (0.55-1.30); GLUCOSE, FASTING 214 MG/DL (70-100); LDH LACTATE DEHYDROGENASE 275 U/L (84-246); MAGNESIUM LEVEL 1.5 MG/DL (1.8-2.4); PHOSPHORUS LEVEL 2.9 MG/DL (2.5-4.9); POTASSIUM SERUM 4.1 MEQ/L (3.5-5.1); SODIUM LEVEL 136 MEQ/L (136-145); TOTAL PROTEIN 5.6 GM/DL (6.4-8.2); TRIGLYCERIDES LEVEL 139 MG/DL (<150)
[2020-01-31 06:42] LABS: PROTHROMBIN TIME 57.4 SECONDS (11.8-14.0)
[2020-01-31 07:07] LABS: INR 6.46
[2020-01-31 07:14] LABS: PLATELET COUNT, AUTOMATED 55 10^3/uL (150-450)
[2020-01-31 07:15] LABS: PLTBLUE- EDTA FREE MACHINE 39 10^3/uL (172-450)
[2020-01-31] MEDS: FUROSEMIDE injection 250 MG in D5W 225 ML IV SCH (07:45)
[2020-01-31] MEDS ORDERED: PHYTONADIONE 10MG/ML INJECTION (J3430) SC ONE (08:00)
[2020-01-31] MEDS ORDERED: MAGNESIUM OXIDE 400 MG TAB (MAG-OX) PO SCH (09:00)
[2020-01-31] MEDS: NYSTATIN 100,000 UNITS/GM TOPICAL PWD 15 GM TOP SCH ×2 (09:00→19:59)
[2020-01-31] MEDS ORDERED: FLUCONAZOLE 100 MG in IV 1 EA IV SCH (09:00)
[2020-01-31] MEDS ORDERED: POTASSIUM CHLORIDE 10 MEQ SR TABLET PO SCH (09:00)
--- NOTE | 2020-01-31 10:05 | IPNPDOC ---
Subjective Date Seen The patient was seen on 01/31/20. Subjective Chief Complaint/HPI Patient feeling slightly better in no cardiopulmonary distress. I had a extensive discussion with the patient at bedside, all her medical conditions and the treatment and plan was explained to her and also she will inform about poor prognosis secondary to severe pulmonary hypertension and multiple chronic medical problems. Patient decided DNR/DNI and comfort measures at the present time she does not want any heroic measures to be taken to several life. I also spoke with patient's healthcare proxy who is her good friend and informed her about patient's wishes and she agrees with the patient's wishes as well. General: Denies: ROS Unobtainable, Chills, Night Sweats, Fatigue, Malaise, Normal Appetite, Other Symptoms Constitutional: Denies: Chills, Fever, Malaise, Night Sweats, Weakness, Fatigue , Weight Loss, Lethargy, Other Pulmonary: Denies: Dyspnea, Cough, Pleuritic Chest Pain, Other Symptoms Cardiovascular: Denies: Chest Pain, Palpitations, Orthopnea, Paroxysmal Noc. Dyspnea, Edema, Lt Headedness, Other Symptoms Gastrointestinal: Denies: Nausea, Vomiting, Abdominal Pain, Diarrhea, Constipation, Melena, Hematochezia, Other Symptoms Musculoskeletal: Denies: Neck Pain, Back Pain, Shoulder Pain, Arm Pain, Hand Pain, Leg Pain, Foot Pain, Joint Pain, Muscle Pain, Spasms, Other Symptoms Neurological: Denies: Weakness, Numbness, Incoordination, Change in speech, Confusion, Seizures, Other Symptoms Psych: Denies: Mood Normal, Anxiety, Depression, Memory Issues, Thoughts of Self Harm, Anger, Thoughts of Harming Other, Other Psych Objective Physical Examination General Exam: Positive: Alert, Cooperative Eye Exam: Positive: PERRLA, Conjunctiva & lids normal ENT Exam: Positive: Atraumatic Neck Exam: Positive: Supple Chest Exam: Positive: Other (, crackles bilaterally with decreased breath sounds bilaterally) Heart Exam: Positive: Rate Normal, Normal S1, Normal S2 Abdomen Exam: Positive: Normal bowel sounds, Soft Skin Exam: Positive: Nl turgor and temperature Neuro Exam: Positive: Strength at 5/5 X4 ext, Sensation Intact, Cranial Nerves 3-12 NL Psych Exam: Positive: Anxiety, Oriented x 3 Assessment /Plan Problems (1) Sepsis Status: Acute Problem Text: Patient had decided DNR/DNI and comfort measures only With DC vasopressors, IV fluids and IV antibiotics Patient will be transferred to [facility] floor with comfort measures only Discussed with Dr. Fish and he agrees with the current change in management a s per patient's wishes (2) Community acquired pneumonia Status: Acute Problem Text: DC IV antibiotics Supportive measures Patient support and nebulizer as needed for comfort measures (3) UTI (urinary tract infection) Status: Acute Problem Text: DC IV antibiotics Supportive measures (4) Acute on chronic diastolic (congestive) heart failure Status: Acute Problem Text: DC IV Lasix Will start by mouth Lasix if patient developed shortness of breath as comfort measures (5) HTN (hypertension) Status: Chronic Problem Text: (6) HLD (hyperlipidemia) Status: Chronic Problem Text: (7) Moderate to severe pulmonary hypertension Status: Chronic Problem Text: Comfort measures only Poor prognosis (8) Atrial fibrillation Status: Chronic Problem Text: DC anticoagulation Comfort measures only (9) Diabetes Status: Chronic Problem Text: Fingerstick blood sugar every 6 hours and at bedtime with coverage (10) Morbid obesity Status: Chronic Problem Text: Plan/VTE VTE Prophylaxis Ordered?: Yes VS, I&O, 24H, Fishbone Vital Signs/I&O Vital Signs Date Time Temp Pulse Resp B/P (MAP) Pulse Ox O2 Delivery O2 Flow Rate FiO2 01/31/20 08:00 69 104/54 (71) 90 Nasal Cannula 2.0 01/31/20 07:45 97.1 20 I&O- Last 24 Hours up to 6 AM 01/31/20 06:00 Intake Total 3023.6 ml Output Total 4135 ml Balance -1111.4 ml Laboratory Data 24H LABS Laboratory Tests 2 01/30/20 14:58: Cortisol Baseline 14.5, Methicillin-Resist S.aureus DNA PCR DETECTEDA 01/30/20 20:01: Bedside Glucose (Misc Panel) 201H 01/31/20 05:41: Platelet Count, EDTA Free 43L, Prothrombin Time 57.4H, Prothromb Time International Ratio 6.46*H, Anion Gap , Glomerular Filtration Rate 36.0, Calcium Level 7.5L, Phosphorus Level 2.9, Magnesium Level 1.5L, Total Bilirubin 0.7, Aspartate Amino Transf (AST/SGOT) 17, Alanine Aminotransferase (ALT/SGPT) 13, Alkaline Phosphatase 135H, Lactate Dehydrogenase 275H, Total Creatine Kinase 25L, C-Reactive Protein, Quantitative 11.00H, Total Protein 5.6L, Albumin 1.5L, Albumin/Globulin Ratio 0.37L, Triglycerides Level 139, Cholesterol Level 115 01/31/20 05:42: Immature Granulocyte % (Auto) 0.6, Neutrophils (%) (Auto) 80.5H, Lymphocytes (%) (Auto) 7.9L, Monocytes (%) (Auto) 5.5H, Eosinophils (%) (Auto) 5.1H, Basophils (%) (Auto) 0.4, Neutrophils # (Auto) 9.9H, Lymphocytes # (Auto) 1.0L, Monocytes # (Auto) 0.7, Eosinophils # (Auto) 0.6H, Basophils # (Auto) 0.1, Nucleated Red Blood Cells % (auto) 0.3H, Immature Platelet Fraction 7.7 CBC/BMP Laboratory Tests 01/31/20 05:41 01/31/20 05:42 Microbiology Microbiology 01/29/20 Urine Culture - Final, Complete Yeast Like Organism 01/29/20 Respiratory Virus Panel (PCR) ([place]) - Final, Complete 01/28/20 Blood Culture - Preliminary, Resulted No Growth after 48 hours. All Specime... LEIDY YOUSIF MD Jan 31, 2020 10:05
[2020-01-31] MEDS ORDERED: PERCOCET 5MG/325MG TAB PO PRN (12:00)
[2020-01-31] MEDS ORDERED: VANCOMYCIN HCL 500 MG in D5W MINI-BAG PLUS 100 ML IV SCH (15:00)
[2020-01-31] MEDS: PERCOCET 5MG/325MG TAB PO PRN (19:59)
[2020-01-31] MEDS ORDERED: ONDANSETRON 4 MG ORAL DISINTEGRATING TAB (Q0162 PER 1MG) SL PRN (20:45)
[2020-01-31] MEDS ORDERED: HYOSCYAMINE SULFATE 0.125 MG SUBL TABLET PO PRN (20:45)
[2020-01-31] MEDS ORDERED: LORazepam 1 MG TAB PO PRN (20:45)
[2020-01-31] MEDS ORDERED: SCOPOLAMINE 1MG TRANSDERMAL PATCH TOP PRN (20:45)
[2020-01-31] MEDS ORDERED: MORPHINE 10MG/0.5ML ORAL CONCENTRATE SOLUTION U/D SL PRN ×2 (22:30)
[2020-01-31] MEDS ORDERED: LOPERAMIDE 2 MG CAPLET PO PRN (23:15)
[2020-02-01] MEDS ORDERED: ALPRAZolam 0.25 MG TAB PO PRN (08:30)
[2020-02-01] MEDS ORDERED: ALBUTEROL SULFATE 2.5 MG/0.5 ML INH NEB SOLN NEB PRN (08:30)
--- NOTE | 2020-02-01 09:33 | IPNPDOC ---
Subjective Date Seen The patient was seen on 02/01/20. Subjective Chief Complaint/HPI Patient is sleeping comfortably in no apparent distress. Discussed with RN, No overnight issues reported General: Reports: ROS Unobtainable Objective Physical Examination Chest Exam: Positive: Clear to auscultation, Other (minimum crackles at bases) Heart Exam: Positive: Rate Normal, Normal S1, Normal S2 Abdomen Exam: Positive: Normal bowel sounds, Soft Assessment /Plan Problems (1) Sepsis Status: Acute Problem Text: Patient had decided DNR/DNI and comfort measures only With DC vasopressors, IV fluids and IV antibiotics Patient will be transferred to [facility] floor with comfort measures only Discussed with Dr. Fish and he agrees with the current change in management as per patient's wishes Pain management has been started Hospice consult for a.m. as patient can be discharged home on hospice (2) Community acquired pneumonia Status: Acute Problem Text: DC IV antibiotics Supportive measures Patient support and nebulizer as needed for comfort measures (3) UTI (urinary tract infection) Status: Acute Problem Text: DC IV antibiotics Supportive measures (4) Acute on chronic diastolic (congestive) heart failure Status: Acute Problem Text: DC IV Lasix Will start by mouth Lasix if patient developed shortness of breath as comfort measures (5) HTN (hypertension) Status: Chronic Problem Text: (6) HLD (hyperlipidemia) Status: Chronic Problem Text: (7) Moderate to severe pulmonary hypertension Status: Chronic Problem Text: Comfort measures only Poor prognosis (8) Atrial fibrillation Status: Chronic Problem Text: DC anticoagulation Comfort measures only (9) Diabetes Status: Chronic Problem Text: Will DC fingersticks Will continue patient's home diabetic meds (10) Morbid obesity Status: Chronic Problem Text: Plan/VTE VTE Prophylaxis Ordered?: Yes VS, I&O, 24H, Fishbone Vital Signs/I&O Vital Signs Date Time Temp Pulse Resp B/P (MAP) Pulse Ox O2 Delivery O2 Flow Rate FiO2 01/31/20 21:00 2.0 01/31/20 09:46 69 84/49 (61) 01/31/20 08:30 91 Nasal Cannula 01/31/20 07:45 97.1 20 I&O- Last 24 Hours up to 6 AM 02/01/20 06:00 Intake Total 1176.4 ml Output Total 1620 ml Balance -443.6 ml Laboratory Data Microbiology Microbiology 01/29/20 Urine Culture - Final, Complete Yeast Like Organism 01/29/20 Respiratory Virus Panel (PCR) ([place]) - Final, Complete 01/28/20 Blood Culture - Preliminary, Resulted No Growth after 72 hours. All specime... LEIDY YOUSIF MD Feb 01, 2020 09:33
[2020-02-01] MEDS: NYSTATIN 100,000 UNITS/GM TOPICAL PWD 15 GM TOP SCH ×2 (09:42→21:14)
[2020-02-01] MEDS: PERCOCET 5MG/325MG TAB PO PRN (21:14)
[2020-02-02] MEDS ORDERED: LOPERAMIDE 2 MG CAPLET PO PRN (10:00)
--- NOTE | 2020-02-02 10:50 | IPNPDOC ---
Subjective Date Seen The patient was seen on 02/02/20. Subjective Chief Complaint/HPI Patient actually feels a lot better once she is off medications. Awaiting hospice evaluation General: Denies: ROS Unobtainable, Chills, Night Sweats, Fatigue, Malaise, Normal Appetite, Other Symptoms Constitutional: Denies: Chills, Fever, Malaise, Night Sweats, Weakness, Fatigue, Weight Loss, Lethargy, Other Pulmonary: Denies: Dyspnea, Cough, Pleuritic Chest Pain, Other Symptoms Cardiovascular: Denies: Chest Pain, Palpitations, Orthopnea, Paroxysmal Noc. Dyspnea, Edema, Lt Headedness, Other Symptoms Gastrointestinal: Denies: Nausea, Vomiting, Abdominal Pain, Diarrhea, Constipation, Melena, Hematochezia, Other Symptoms Musculoskeletal: Denies: Neck Pain, Back Pain, Shoulder Pain, Arm Pain, Hand Pain, Leg Pain, Foot Pain, Joint Pain, Muscle Pain, Spasms, Other Symptoms Neurological: Denies: Weakness, Numbness, Incoordination, Change in speech, Confusion, Seizures, Other Symptoms Objective Physical Examination General Exam: Positive: Alert, Cooperative Chest Exam: Positive: Clear to auscultation, Other (minimum crackles at bases) Heart Exam: Positive: Rate Normal, Normal S1, Normal S2 Abdomen Exam: Positive: Normal bowel sounds, Soft Assessment /Plan Problems (1) Sepsis Status: Acute Problem Text: Patient had decided DNR/DNI and comfort measures only With DC vasopressors, IV fluids and IV antibiotics Patient has been transferred to [facility] floor for comfort measures only Discussed with Dr. Fish and he agrees with the current change in management as per patient's wishes Pain management has been started Hospice consult was placed and yesterday Discussed with the social work and case management regarding possible transfer to her facility with a hospice or home with hospice Continue present care (2) Community acquired pneumonia Status: Acute Problem Text: DC IV antibiotics Supportive measures Patient support and nebulizer as needed for comfort measures (3) UTI (urinary tract infection) Status: Acute Problem Text: DC IV antibiotics Supportive measures (4) Acute on chronic diastolic (congestive) heart failure Status: Acute Problem Text: DC IV Lasix Will start by mouth Lasix if patient developed shortness of breath as comfort measures (5) HTN (hypertension) Status: Chronic Problem Text: (6) HLD (hyperlipidemia) Status: Chronic Problem Text: (7) Moderate to severe pulmonary hypertension Status: Chronic Problem Text: Comfort measures only Poor prognosis (8) Atrial fibrillation Status: Chronic Problem Text: DC anticoagulation Comfort measures only (9) Diabetes Status: Chronic Problem Text: Will DC fingersticks Will continue patient's home diabetic meds (10) Morbid obesity Status: Chronic Problem Text: Plan/VTE VTE Prophylaxis Ordered?: Yes VS, I&O, 24H, Fishbone Vital Signs/I&O Vital Signs Date Time Temp Pulse Resp B/P (MAP) Pulse Ox O2 Delivery O2 Flow Rate FiO2 02/01/20 21:00 2.0 01/31/20 09:46 69 84/49 (61) 01/31/20 08:30 91 Nasal Cannula 01/31/20 07:45 97.1 20 I&O- Last 24 Hours up to 6 AM 02/02/20 06:00 Intake Total 100 ml Output Total 150 ml Balance -50 ml Laboratory Data Microbiology Microbiology 01/29/20 Urine Culture - Final, Complete Yeast Like Organism 01/29/20 Respiratory Virus Panel (PCR) ([place]) - Final, Complete 01/28/20 Blood Culture - Preliminary, Resulted No Growth after 72 hours. All specime... LEIDY YOUSIF MD Feb 02, 2020 10:50
[2020-02-02] MEDS ORDERED: ANTI2TAB16 PO (11:51)
[2020-02-02] MEDS ORDERED: ALPR0.25 PO (11:51)
[2020-02-02] MEDS ORDERED: PERCOCET PO (11:51)
[2020-02-02] MEDS ORDERED: SCOP1PAT2 TOP (11:51)
[2020-02-02] MEDS ORDERED: ALB2.5NEB NEB (11:51)
[2020-02-02] MEDS ORDERED: NYST10006 TOP (11:51)
[2020-02-02] MEDS ORDERED: ONDA4TAB6 SL (11:51)
[2020-02-02] MEDS ORDERED: ACET1TAB55 PO (11:51)
--- NOTE | 2020-02-02 12:38 | DS.PDOC ---
Discharge Summary General Date of Admission Jan 28, 2020 at 22:37 Date of Discharge 02/02/20 Discharge Summary PROCEDURES PERFORMED DURING STAY: None. ADMITTING DIAGNOSES: 1. Community required pneumonia. DISCHARGE DIAGNOSES: 1. Community acquired pneumonia. COMPLICATIONS/CHIEF COMPLAINT: Community Acquired Pneumonia. HISTORY OF PRESENT ILLNESS: History is limited as patient is a poor historian. Patient is an 85 year old female presenting as a direct transfer from [facility] with chief complaint of chest pain and SOB. She apparently had been recently discharged to a [facility] this past Sunday from an inpatient facility for CHF exacerbation and [facility] (Of note, while there she tested negative for COVID). Since that discharge patient was complaining of increased fluid retention on top of her chronic lymphedema with decreased urine output, and apparent bilateral flank pain, but no fevers. On 01/27/2020, she presented to [facility] with similar symptoms but also complaining of dyspnea/chest pain and was discharged home, but returned on 01/28/2020 complaining of worsening of the same symptoms. On arrival to [facility] she rescinded her prior DNR/DNI code status and was found to be hypotensive, with mildly elevated lactic acidosis, elevated BNP of about 4000, UTI, a CXR showing left pleural effusion with possible infiltrate and was subsequently admitted to the hospital. She was given zosyn, albuterol nebulizer therapy, and was on 2 Liters nasal cannula while in [facility]. Patient's dyspneic symptoms were thought to be secondary to CHF exacerbation so she was given 40 mg IVP of lasix which dropped her pressure to 80/43 from SBP in 100s (baseline at [facility]pc is in 90s). In light of this change in code status and her worsening hypotension, the hospitalist determined it would be safer to transfer her to [facility] due to limitations at [facility] facilities. . HOSPITAL COURSE: Patient was initially admitted with sepsis secondary to pneumonia and was started on IV antibiotics and secondary to hypertension, admitted to ICU. Patient was started on multiple vasopressors without any significant impact. [employer] was called and diuresis was recommended as patient has a poor prognosis secondary to severe pulmonary hypertension, that's all could be recommended by [facility]. Later on patient decided to sign DNR, DNI and comfort measures only All vasopressors, IV fluids and IV antibiotics were DC'd Patient was transferred to MedSurg floor for comfort measures only Discussed with Dr. Fish and he agrees with the current change in management as per patient's wishes Pain management has been started Pt has been accepted to [facility] with comfort measures only Pt will be discharged to [facility] today on all current medications and advised to continue patient comfortable for improving her quality of life in a terminal condition. . DISCHARGE MEDICATIONS: Please see below. ALLERGIES: Please see below. PHYSICAL EXAMINATION ON DISCHARGE: VITAL SIGNS: Please see below. GENERAL: Within normal limits HEENT: PERRLA. Extraocular muscles intact NECK: Supple CARDIOVASCULAR EXAMINATION: S1, S2, regular RESPIRATORY EXAMINATION: Clear to A&P ABDOMINAL EXAMINATION: Benign EXTREMITIES: No clubbing, cyanosis, edema SKIN: Normal NEUROLOGICAL EXAMINATION: . No focal motor sensory deficit PSYCHIATRIC EXAMINATION: Normal LABORATORY DATA: Please see below. IMAGING: Chest x-ray:IMPRESSION: No significant change compared to the prior exam. PROGNOSIS: Poor ACTIVITY: As tolerated. DIET: As tolerated DISCHARGE PLAN: Discharge back to [facility] with comfort measures only DISPOSITION: Back to [facility]. DISCHARGE INSTRUCTIONS: 1. Comfort measures only. ITEMS TO FOLLOWUP ON ON OUTPATIENT: 1. Follow with PCP in one week. DISCHARGE CONDITION: Stable. TIME SPENT ON DISCHARGE: 32 minutes. Vital Signs/I&Os Vital Signs Date Time Temp Pulse Resp B/P (MAP) Pulse Ox O2 Delivery O2 Flow Rate FiO2 02/01/20 21:00 2.0 01/31/20 09:46 69 84/49 (61) 01/31/20 08:30 91 Nasal Cannula 01/31/20 07:45 97.1 20 I&O- Last 24 Hours up to 6 AM 02/02/20 06:00 Intake Total 100 ml Output Total 150 ml Balance -50 ml Microbiology Microbiology 01/29/20 Urine Culture - Final, Complete Yeast Like Organism 01/29/20 Respiratory Virus Panel (PCR) ([place]) - Final, Complete 01/28/20 Blood Culture - Preliminary, Resulted No Growth after 72 hours. All specime... Discharge Medications Scheduled Nystatin (Nystop) 60 Gm Powder, 0 DOSE TOP BID Scheduled PRN Acetaminophen (Acetaminophen) 325 Mg Tablet, 650 MG PO Q6H PRN for PAIN, (Reported) Acetaminophen (Acetaminophen) 325 Mg Tablet, 650 MG PO Q4H PRN for PAIN OR FEVER Albuterol Sulfate (Albuterol Sulfate) 2.5 Mg/0.5 Ml Vial.neb, 2.5 MG NEB Q4HP PRN for SOB/WHEEZING Alprazolam (Alprazolam) 0.25 Mg Tablet, 0.25 MG PO Q6HP PRN for ANXIETY Loperamide HCl (Anti-Diarrheal) 2 Mg Tablet, 2 MG PO ASDIRECTED PRN for DIARRHEA Ondansetron (Ondansetron Odt) 4 Mg Tab.rapdis, 4 MG SL Q4HP PRN for NAUSEA OR VOMITING Oxycodone/Acetaminophen (Oxycodone-Acetaminophen 5-325) 1 Each Tablet, 1 TAB PO Q6HP PRN for MILD/MODERATE PAIN (PS 1-7) Oxycodone/Acetaminophen (Oxycodone-Acetaminophen 5-325) 1 Each Tablet, 2 TAB PO Q6HP PRN for SEVERE PAIN (PS 8-10) Saliva Substitute Combo No.9 (Biotene Pbf) 473 Ml Mouthwash, 30 ML SSP QID PRN for DRY MOUTH, (Reported) Scopolamine (Transderm-Scop) 1 Each Patch.td.3, 1 MG TOP Q3DP PRN for EXCESSIVE SECRETIONS Allergies Coded Allergies: dirithromycin (Verified Allergy, Intermediate, hives, 01/08/19) Sulfa (Sulfonamide Antibiotics) (Verified Allergy, Unknown, 01/08/19) Penicillins (Verified Adverse Reaction, Intermediate, tachycardia 40 yrs ago, 01/08/19) LEIDY YOUSIF MD Feb 02, 2020 12:38
[2020-02-02] MEDS: NYSTATIN 100,000 UNITS/GM TOPICAL PWD 15 GM TOP SCH (13:26)
== END 2020-02-02 13:35 | DRG 871 ==
LOC: M RR INP 22:37 → M MSPAV 01-31 10:02
PROVIDERS: ADMIT General Practice; ATTEND Internal Medicine
DX: A41.9 Sepsis, unspecified organism (principal); I50.33 Acute on chronic diastolic (congestive) heart failure; R57.0 Cardiogenic shock; J18.9 Pneumonia, unspecified organism; R65.21 Severe sepsis with septic shock; E87.2 Acidosis; N39.0 Urinary tract infection, site not specified; I48.20 Chronic atrial fibrillation, unspecified; Z68.42 Body mass index [BMI] 45.0-49.9, adult; I13.0 Hypertensive heart and chronic kidney disease with heart failure and stage 1 through stage 4 chronic kidney disease, or unspecified chronic kidney disease; I27.20 Pulmonary hypertension, unspecified; E66.01 Morbid (severe) obesity due to excess calories; D69.6 Thrombocytopenia, unspecified; Z66 Do not resuscitate; Z51.5 Encounter for palliative care; Z79.899 Other long term (current) drug therapy; Z88.2 Allergy status to sulfonamides; Z88.0 Allergy status to penicillin; Z88.8 Allergy status to other drugs, medicaments and biological substances; E78.5 Hyperlipidemia, unspecified; G47.33 Obstructive sleep apnea (adult) (pediatric); Z91.19 Patient's noncompliance with other medical treatment and regimen; Z95.0 Presence of cardiac pacemaker; I25.10 Atherosclerotic heart disease of native coronary artery without angina pectoris; K21.9 Gastro-esophageal reflux disease without esophagitis; N18.3 Chronic kidney disease, stage 3 (moderate); E87.5 Hyperkalemia; E03.9 Hypothyroidism, unspecified; J44.9 Chronic obstructive pulmonary disease, unspecified; E11.9 Type 2 diabetes mellitus without complications